=== PATIENT | female | born 1945 | race Caucasian/White ===

== ENCOUNTER 2016-11-02 17:21 | Inpatient (IN) ==
[2016-11-02] MEDS ORDERED: cefTRIAXone 1,000 MG in SODIUM CHLORIDE 0.9% 100 ML IV STA (18:41)
[2016-11-02] MEDS ORDERED: AZITHROMYCIN INJ 500 MG in SODIUM CHLORIDE 0.9% 250 ML IV STA (18:41)
[2016-11-02] MEDS ORDERED: methylPREDNISolone SOD SUC 125 MG/2 ML VIAL IV STA (18:41)
[2016-11-02] MEDS ORDERED: ONDANSETRON 4 MG/2 ML VIAL IM STA (18:41)
[2016-11-02] MEDS ORDERED: MORPHINE 2 MG/1 ML SYRINGE IV STA (18:41)
[2016-11-02] MEDS ORDERED: methylPREDNISolone SOD SUC 125 MG/2 ML VIAL ONE (18:48)
[2016-11-02] MEDS ORDERED: MORPHINE 2 MG/1 ML SYRINGE ONE (18:48)
[2016-11-02] MEDS ORDERED: ONDANSETRON 4 MG/2 ML VIAL ONE (18:48)
[2016-11-02 18:50] LABS: Basophils % 0.1 % (0.0-0.8); Eosinophils % 0.3 % (0.00-10.9); Hematocrit 41.6 VOL% (35.7-47.0); Hemoglobin 14.1 GM/DL (12.0-16.0); Immature Granulocytes % 0.2 %; Immature Granulocytes Absolute 0.02 #; Lymphocytes % 22.7 % (21.3-54.2); Mean Corpuscular HGB Conc 33.9 GM/DL (32-36); Mean Corpuscular Hemoglobin 31 PG (27-34); Mean Corpuscular Volume 92.4 FL (87-102); Monocytes # 0.8 10*3/uL (0.11-0.8); Neutrophils # 5.9 10*3/uL (1.4-7.4); Neutrophils % 67.7 % (38.7-73.9); Platelet Count 162 10*3/uL (130-400); White Blood Count 8.7 10*3/uL (4.5-13.71)
[2016-11-02] MEDS ORDERED: ONDANSETRON 4 MG/2 ML VIAL IV STA (18:56)
[2016-11-02 18:58] LABS: D-Dimer <= 0.5 MG/L FEU; PT Patient Result 10.8 SECS
[2016-11-02] MEDS ORDERED: ALBUTEROL 2.5 MG/3 ML NEB RESP TX SCH (19:00)
[2016-11-02] MEDS ORDERED: cefTRIAXone 1,000 MG VIAL ONE (19:02)
[2016-11-02] MEDS ORDERED: SODIUM CHLORIDE 0.9% 100 ML IV ONE (19:02)
[2016-11-02 19:04] LABS: Alanine Aminotransferase 10 U/L (13-56); Albumin 2.8 G/DL (3.4-5.0); Alkaline Phosphatase 79 U/L (45-117); Aspartate Amino Transferase 13 U/L (0-37); Blood Urea Nitrogen 11 MG/DL (7-18); Calcium 8.4 MG/DL (8.5-10.1); Glucose 93 MG/DL (74-106); Magnesium 1.3 MG/DL (1.8-2.4); Osmolality,Calculated 271.8 MOS/KG (273-304); Potassium 3.5 MMOL/L (3.5-5.1); Sodium 137 MMOL/L (136-145); Total Protein 6.8 G/DL (6.4-8.3); Troponin I Only < 0.015 NG/ML (0.00-0.045)
--- NOTE | 2016-11-02 19:07 | XRay Report ---
XR chest 1V portable Indication: SOB Comparison: Chest x-ray dated June 03, 2012 Technique: Single frontal view of the chest Findings: Continued mild cardiomegaly. Chronic/granulomatous change of the lungs without focal consolidation, pleural effusion, or pneumothorax. Osseous and surrounding soft tissue structures appear grossly unchanged. IMPRESSION: Stable chest x-ray. Continued cardiomegaly without santhosh pulmonary edema. PROCEDURE INTERPRETED AT [facility] DEPARTMENT OF RADIOLOGY Final Report Signed by: Dr Bon Dexter
--- NOTE | 2016-11-02 19:26 | EKG Report ---
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
[2016-11-02] MEDS ORDERED: AZITHROMYCIN 500 MG VIAL IV ONE (19:36)
[2016-11-02 19:47] LABS: ABG Base Excess 3.5 MMOL/L (-2.5-2.5); ABG HCO3 28.9 MMOL/L (20-26); ABG Oxygen Saturation 94.4 % (95-100); ABG PCO2 46.5 MM HG (35-48); ABG PH 7.412 (7.35-7.45); ABG PO2 76.6 MM HG (80-95); ABG TCO2 30.4 MMOL/L (23-27)
[2016-11-02] MEDS ORDERED: MAGNESIUM SULF RIDER 2 GM in PREMIX 1 EACH IV STA (19:52)
--- NOTE | 2016-11-02 20:04 | Emergency Department Note ---
Denzel Dexter Brittany, am scribing for, and in the presence of, Greg Gutierrez MD 18:43. Brenda Dexter Charles R, MD, personally performed the services described in this documentation, ascribed by Lurdes Mahoney in my presence, and it is both accurate and complete . Arrival - Arrival Chief Complaint: Upper Respiratory Stated Complaint: FLU/PNEUMONIA-DEHYDRATION ED Nursing Triage Note: Pt c/o cough, fever, weakness, nausea, and diarrhea since last . Saw Dr Avery on with Flu/pneumonia. Put onto Levaquin/Tamiflu Mode of Arrival: Wheelchair Limitations: No Limitations Source: Patient, Family, RN Notes Reviewed Time Seen by Provider: 11/02/16 18:32 - History of Present Illness HPI Narrative: Patient is a 71 y/o white female presenting to the ED with c/o cough, loss of appetite, and weakness with an onset of a week. Patient was seen by Dr. Avery on and was diagnosed with Flu/Pneumonia and was placed on Levaquin 500 and Tamiflu. Patient states that she still has not had much of an appetite and has not drank much liquids. She states that she does not have much strength either, has been somewhat sedentary since onset of symptoms. Family states, "I think she may have let herself get down and may need to have some fluids to jumpstart her." She notes that when patient got into room her oxygen saturation was around 92 before oxygen 2 liters via nasal cannula was placed. Patient does not use at home oxygen. Family notes that patient is a current everyday smoker. No other complaint/pain in the ED. Allergies/Adverse Reactions: Allergies Allergy/AdvReac Type Severity Reaction Status Date / Time No Known Allergies Allergy Verified 11/02/16 17:31 Home Medications: Home Medications Medication Instructions Recorded Confirmed Type Aspirin [Ecotrin] 81 mg PO DAILY 11/02/16 11/02/16 History Atorvastatin [Lipitor] 10 mg PO DAILY 11/02/16 11/02/16 History Benazepril HCl [Lotensin] 20 mg PO DAILY 11/02/16 11/02/16 History Duloxetine HCl [Duloxetine] 60 mg PO DAILY 11/02/16 11/02/16 History Levofloxacin Tab [Levaquin Tab] 500 mg PO DAILY 11/02/16 11/02/16 History amLODIPine [Norvasc] 10 mg PO DAILY 11/02/16 11/02/16 History carBAMazepine TAB [TEGretol TAB] 400 mg PO BID 11/02/16 11/02/16 History metFORMIN [Glucophage] 500 mg PO BID W/MEALS 11/02/16 11/02/16 History Review of System - Review of System 12 point system: reviewed and no additional remarkable complaints except as stated - Review of System Constitutional: Present: weakness Respiratory: Present: cough, respiratory distress Gastrointestinal: Present: other (loss of appetite) Medical,Surgical,& Family Hx - Medical History Cardio: History of: Hypertension Neurology: History of: TIA Endocrine: History of: Diabetes Mellitus (NIDDM) - Social History Smoking Status: Current every day smoker Exam Vital Signs: Vital Signs Temperature 97.8 F 11/02/16 17:23 Pulse Rate 87 11/02/16 19:26 Respiratory Rate 16 11/02/16 19:26 Blood Pressure 170/82 11/02/16 19:00 O2 Sat by Pulse Oximetry 96 11/02/16 19:26 - General General appearance: alert, in no apparent distress, other (weak appearing) - Head Head exam: Present: atraumatic, normocephalic - Eye Eye exam: Present: PERRL, EOMI - ENT ENT exam: Present: mucous membranes dry, TM's normal bilaterally. Absent: mucous membranes moist - Neck Neck exam: Present: full ROM, trachea midline. Absent: tenderness - Chest Chest inspection: Present: symmetric chest wall rise. Absent: tenderness - Respiratory Respiratory exam: Present: accessory muscle use, rhonchi, wheezes (both lung betancur). Absent: normal lung sounds bilaterally (coarse, decreased breath sounds) - Cardiovascular Cardiovascular exam: Present: normal rhythm, tachycardia, normal heart sounds. Absent: regular rate - Abdominal Exam Abdominal exam: Present: soft, normal bowel sounds. Absent: distention, tenderness - Extremities Exam Extremities exam: Present: full ROM. Absent: tenderness - Back Exam Back exam: Present: full ROM. Absent: tenderness - Neurological Exam Neurological exam: Present: alert, oriented X3, CN II-XII intact, normal gait, reflexes normal. Absent: motor sensory deficit - Psychiatric Psychiatric exam: Present: normal affect, normal mood - Skin Skin exam: Present: warm, dry, intact, normal color Course - Consultations Consultation #1: Dr. Zapien will admit the patient Time: 20:56 Results - Labs CBC & BMP: 11/02/16 18:09 11/02/16 18:09 Lab Results: I have reviewed the patients labs Labs: Laboratory Tests 11/02/16 11/02/16 11/02/16 18:09 18:09 18:09 WBC 8.7 RBC 4.50 Hgb 14.1 Hct 41.6 Plt Count 162 INR 1.0 PT Patient/Control Mix 10.8 D-Dimer, Quantitative <= 0.5 Sodium 137 Potassium 3.5 Chloride 101 Carbon Dioxide 29 BUN 11 Creatinine 0.50 L BUN/Creatinine Ratio 22.00 H Glucose 93 Calculated Osmolality 271.8 L Calcium 8.4 L Magnesium 1.3 L ALT 10 L Troponin I < 0.015 Albumin 2.8 L Globulin 4.0 H Albumin/Globulin Ratio 0.7 L Laboratory Tests 11/02/16 18:09 B-Natriuretic Peptide 207 H Laboratory Tests 11/02/16 19:43 ABG pH 7.412 ABG pCO2 46.5 ABG pO2 76.6 L ABG HCO3 28.9 H ABG Total CO2 30.4 H ABG O2 Saturation 94.4 L ABG Base Excess 3.5 H FiO2 28.00 - Diagnostic Findings Procedure: Chest x-ray: report reviewed by me (Stable chest x-ray. Continued cardiomegaly without santhosh pulmonary edema.) Disposition Clinical Impression: Upper respiratory infection, Bronchitis, COPD exacerbation, Hypomagnesemia, Acute dyspnea Case discussed with: patient, patient's family Disposition: Still a Patient Condition: Stable Time of Disposition: 20:57
[2016-11-02] MEDS ORDERED: MAGNESIUM SULF RIDER 50 ML IV ONE (20:10)
[2016-11-02] MEDS ORDERED: FUROSEMIDE 20 MG/2 ML VIAL IV STA (20:39)
[2016-11-02] MEDS ORDERED: FUROSEMIDE 20 MG/2 ML VIAL ONE (20:39)
--- NOTE | 2016-11-02 21:51 | Hospitalist History & Physical ---
Assessment and Plan (1) Bronchitis with influenza Status: Acute Assessment and plan: The patient's [facility] hospital with shortness of breath and hypoxemia consistent with acute bronchitis with influenza. The patient has completed a course of oral Tamiflu. She is at risk for gram-positive superinfection. The patient will be admitted to the hospital for IV antibiotics, inhaled beta agonist nebulized breathing therapy, and moderate dose steroids. We will observe the patient and continue treatment as required. The patient will continue her usual home medications. The patient will be hydrated. Current Visit: Yes (2) Upper respiratory infection Status: Acute Current Visit: Yes Qualifiers: URI type: acute laryngotracheitis Qualified Code(s): J04.2 - Acute laryngotracheitis (3) COPD exacerbation Status: Acute Current Visit: Yes (4) Hypomagnesemia Status: Acute Current Visit: Yes History of Present Illness Chief complaint: cough and shortness of breath History of present illness: Ms. Merida is a 71 year old female with history of tobacco smoking. The patient sees Dr. Evangelist Stern is now patient. The patient began having shortness of breath cough and fever about a week ago. Dr. Stern gave the patient a prescription for penicillin and Levaquin. The patient was compliant with these medications and took a 5 day course of Tamiflu. The patient has continued to suffer with cold symptoms and flu symptoms. The patient's symptoms are moderate, continuous, and begun to worsen. The patient's symptoms have been associated with fever, chills, reduced appetite. The patient is now admitted to the hospital for further treatment with IV antibiotic and hydration. Home Medications Medication Instructions Recorded Confirmed Type Aspirin [Ecotrin] 81 mg PO DAILY 11/02/16 11/02/16 History Atorvastatin [Lipitor] 10 mg PO DAILY 11/02/16 11/02/16 History Benazepril HCl [Lotensin] 20 mg PO DAILY 11/02/16 11/02/16 History Duloxetine HCl [Duloxetine] 60 mg PO DAILY 11/02/16 11/02/16 History Levofloxacin Tab [Levaquin Tab] 500 mg PO DAILY 11/02/16 11/02/16 History amLODIPine [Norvasc] 10 mg PO DAILY 11/02/16 11/02/16 History carBAMazepine TAB [TEGretol TAB] 400 mg PO BID 11/02/16 11/02/16 History metFORMIN [Glucophage] 500 mg PO BID W/MEALS 11/02/16 11/02/16 History Allergies Allergy/AdvReac Type Severity Reaction Status Date / Time No Known Allergies Allergy Verified 11/02/16 17:31 Medical,Surgical,& Family Hx - Medical History Cardio: History of: Hypertension Neurology: History of: Cerebrovascular Accident, TIA Endocrine: History of: Diabetes Mellitus (NIDDM) - Family History Family History: Reports;: Family Hypertension - Social History Smoking Status: Current every day smoker Have you smoked in the last 12 months: Yes Type of Drug Use: None Marital Status: Lives With:: Spouse Functional capacity: independent ambulation 12 point system: reviewed and no additional remarkable complaints except as stated Exam - Constitutional Vitals: Period Temp Pulse Resp BP Sys/Valdes Pulse Ox Last 24 Hr 97.8 F 78-89 16-20 138-170/80-104 92-96 Exam: Constitutional System: Mild to moderate distress. No tremulousness. Head: Normocephalic, atraumatic. Ears, Nose and Throat System: No evidence of Otitis or Mastoiditis. No epistaxis or discharge Eyes System: Pupils equal, round, and reactive. Extraocular muscles intact. Neck: Supple, without adenopathy, No jugular venous distention. No thyromegaly , neck mass, or prior surgery apparent. Respiratory System: Chest with moderate wheezing and with moderate upper airway congestion to auscultation. Cardiovascular System: Heart with regular rate and rhythm. No murmur. GI System: Abdomen soft, nontender. Normoactive bowel sounds present. Musculoskeletal System: limbs with trace pedal edema. Full distal pulses. Neurological System: No discernable sensory deficit. No aphasia Psychiatric System: Conversation is rational Results - Labs CBC & BMP: 11/02/16 18:09 11/02/16 18:09 Lab Results: I have reviewed the past 24 hour labs Labs: Magnesium equals 1.2 - EKG EKG shows: sinus rhythm (nonspecific ST-T wave changes) - Diagnostic Findings Procedure: Chest x-ray: image reviewed by me (no specific infiltrate. There is some peribronchial cuffing)
[2016-11-03] MEDS ORDERED: MAGNESIUM SULF RIDER 2 GM in PREMIX 1 EACH IV ONE (00:19)
[2016-11-03] MEDS ORDERED: ONDANSETRON 4 MG/2 ML VIAL IV PRN (00:19)
[2016-11-03] MEDS ORDERED: ACETAMINOPHEN 325 MG TABLET PO PRN (00:19)
[2016-11-03] MEDS: ALBUTEROL/IPRATROPIUM 3 ML NEB RESP TX SCH ×4 (01:19→19:06)
[2016-11-03] MEDS: SODIUM CHLORIDE 0.9% 1,000 ML IV SCH ×2 (01:51→14:00)
[2016-11-03] MEDS: ENOXAPARIN 40 MG/0.4 ML SYRINGE SUBCUT SCH (01:52)
[2016-11-03] MEDS: methylPREDNISolone SOD SUC 40 MG/1 ML VIAL IV SCH ×3 (01:52→16:22)
[2016-11-03 06:16] LABS: Basophils % 0.1 % (0.0-0.8); Hematocrit 39.5 VOL% (35.7-47.0); Immature Granulocytes % 0.6 %; Immature Granulocytes Absolute 0.04 #; Lymphocytes # 0.8 10*3/uL (1.4-4.0); Lymphocytes % 10.7 % (21.3-54.2); Mean Corpuscular HGB Conc 32.9 GM/DL (32-36); Mean Corpuscular Hemoglobin 31 PG (27-34); Mean Corpuscular Volume 93.4 FL (87-102); Monocytes # 0.3 10*3/uL (0.11-0.8); Neutrophils % 84.6 % (38.7-73.9); Platelet Count 173 10*3/uL (130-400); Red Blood Count 4.23 10*6/uL (3.8-5.5); Red Cell Distribution Width 13.2 % (9.3-17.3); White Blood Count 7.1 10*3/uL (4.5-13.71)
[2016-11-03 06:54] LABS: Blood Urea Nitrogen 12 MG/DL (7-18); Calcium 8.1 MG/DL (8.5-10.1); Glucose 143 MG/DL (74-106); Magnesium 2.7 MG/DL (1.8-2.4); Osmolality,Calculated 280.4 MOS/KG (273-304); Potassium 3.5 MMOL/L (3.5-5.1); Sodium 140 MMOL/L (136-145); Troponin I Only < 0.015 NG/ML (0.00-0.045)
--- NOTE | 2016-11-03 08:22 | XRay Report ---
XR chest 2V Date: 11/03/2016 4:00 AM History: Shortness of breath Comparison: 11/02/2016 Technique: PA and lateral chest Findings: Stable cardiomegaly with calcification in the aortic knob. Persistent diffuse parenchymal findings in the lungs with stable mediastinum and osseous structures. Impression: COPD with evidence of old healed granulomatous disease and chronic scarring. Minimal atelectasis at the lung bases. PROCEDURE INTERPRETED AT [facility] DEPARTMENT OF RADIOLOGY Final Report Signed by: Dr. Whitney Irving
--- NOTE | 2016-11-03 09:07 | EKG Report ---
Stationary ECG Study [facility] Test Date: 11/03/2016 9:06:31 AM Pat Name: JAMEY SNYDER Department: Room: 519 Gender: F Kiln Pusher: SONJA : 1945 Requested by: Malcolm Zapien Order Number: [id number] Reading MD: LUCI HERNANDEZ Intervals [place] Rate: 85 P: 81 [place]: 218 QRS: 57 QRSD: 96 T: 76 QT: 367 QTc: 410 Interpretive Statements SINUS RHYTHM WITH PROLONGED [place] INTERVAL SEPTAL MYOCARDIAL INFARCTION, OF INDETERMINATE AGE Electronically Signed On 11-03-16 11:50:52 RECREATION TEACHER by LUCI HERNANDEZ [id number]
[2016-11-03] MEDS: carBAMazepine 200 MG TABLET PO SCH ×2 (09:11→20:45)
[2016-11-03] MEDS: ASPIRIN EC 81 MG TABLET PO SCH (09:12)
[2016-11-03] MEDS: amLODIPine 10 MG TABLET PO SCH (09:12)
[2016-11-03] MEDS: ATORVASTATIN 10 MG TABLET PO SCH (09:12)
[2016-11-03] MEDS: PANTOPRAZOLE 40 MG TABLET PO SCH (09:12)
[2016-11-03] MEDS: DULoxetine 30 MG CAPSULE PO SCH (09:13)
[2016-11-03] MEDS: metFORMIN 500 MG TABLET PO SCH ×2 (09:14→16:22)
[2016-11-03] MEDS: AZITHROMYCIN 250 MG TABLET PO SCH (09:14)
[2016-11-03] MEDS: BENAZEPRIL 10 MG TABLET PO SCH (09:14)
[2016-11-03] MEDS: cefTRIAXone 1,000 MG in SODIUM CHLORIDE 0.9% 100 ML IV SCH (09:15)
--- NOTE | 2016-11-03 12:28 | Hospitalist Progress Note ---
Assessment and Plan (1) Bronchitis with influenza Status: Acute Assessment and plan: The patient is admitted to hospital with shortness of breath and hypoxemia consistent with acute bronchitis with influenza. The patient has completed a course of oral Tamiflu. She is at risk for gram-positive superinfection. The patient will be admitted to the hospital for IV antibiotics, inhaled beta agonist nebulized breathing therapy, and moderate dose steroids. We will observe the patient and continue treatment as required. The patient will continue her usual home medications. The patient will be hydrated. The patient is improving and expected fashion and I anticipate she will be ready for discharge home tomorrow. Follow-up chest x-ray today has not revealed development of any pneumonia but does show some atelectasis in the bases consistent with her wheezing. Current Visit: Yes (2) Upper respiratory infection Status: Acute Current Visit: Yes Qualifiers: URI type: acute laryngotracheitis Qualified Code(s): J04.2 - Acute laryngotracheitis (3) COPD exacerbation Status: Acute Current Visit: Yes (4) Hypomagnesemia Status: Acute Current Visit: Yes Hospitalist: Subjective Interval history: The patient has less cough today. She has mild wheezing and she has air- trapping. The patient is showing improvement of appetite. She has some increased amount of anxiety today Exam - Constitutional Vitals: Period Temp Pulse Resp BP Sys/Valdes Pulse Ox Last 24 Hr 97.2 F-98.3 F 84-97 17-22 98-141/42-74 91-99 Exam: Constitutional System: Mild distress. No tremulousness. Head: Normocephalic, atraumatic. Ears, Nose and Throat System: No evidence of Otitis or Mastoiditis. No epistaxis or discharge Eyes System: Pupils equal, round, and reactive. Extraocular muscles intact. Neck: Supple, without adenopathy, No jugular venous distention. No thyromegaly , neck mass, or prior surgery apparent. Respiratory System: Chest with minimal wheezing and with moderate air trapping to auscultation. Cardiovascular System: Heart with regular rate and rhythm. No murmur. GI System: Abdomen soft, nontender. Normoactive bowel sounds present. Musculoskeletal System: limbs with trace pedal edema. Full distal pulses. Neurological System: No discernable sensory deficit. No aphasia Psychiatric System: Conversation is rational Results - Labs CBC & BMP: 11/03/16 05:32 11/03/16 05:32 Lab Results: I have reviewed the past 24 hour labs
[2016-11-04] MEDS: methylPREDNISolone SOD SUC 40 MG/1 ML VIAL IV SCH ×3 (00:58→16:53)
[2016-11-04] MEDS: ENOXAPARIN 40 MG/0.4 ML SYRINGE SUBCUT SCH (01:03)
[2016-11-04] MEDS: SODIUM CHLORIDE 0.9% 1,000 ML IV SCH (01:04)
[2016-11-04] MEDS: ALBUTEROL/IPRATROPIUM 3 ML NEB RESP TX SCH ×4 (07:04→19:51)
[2016-11-04 08:31] LABS: Allen Test Positive
[2016-11-04 08:33] LABS: ABG Base Excess 3.6 MMOL/L (-2.5-2.5); ABG HCO3 28.8 MMOL/L (20-26); ABG Oxygen Saturation 89.8 % (95-100); ABG PCO2 46.2 MM HG (35-48); ABG PH 7.413 (7.35-7.45); ABG PO2 59.9 MM HG (80-95); ABG TCO2 30.2 MMOL/L (23-27)
[2016-11-04] MEDS: amLODIPine 10 MG TABLET PO SCH (09:24)
[2016-11-04] MEDS: DULoxetine 30 MG CAPSULE PO SCH (09:24)
--- NOTE | 2016-11-04 09:24 | XRay Report ---
History: Shortness of breath Date: 11/04/2016 at 9:02 AM Study: Chest x-ray portable Comparison exam: Chest x-ray November 03, 2016 There is cardiomegaly. The pulmonary vasculature is slightly prominent and ill-defined. There is no mediastinal mass. There is mild to moderate aortic arch calcification. There is mild right-sided pleural effusion. There is patchy and hazy edema in the mid to lower lungs bilaterally. The osseous structures are unchanged. There is mild to moderate thoracic spondylosis. Impression: Cardiomegaly and developing CHF with bibasilar pulmonary edema and mild right pleural effusion PROCEDURE INTERPRETED AT [facility] DEPARTMENT OF RADIOLOGY Final Report Signed by: Dr. Mervat Monterroso
[2016-11-04] MEDS: ASPIRIN EC 81 MG TABLET PO SCH (09:25)
[2016-11-04] MEDS: ATORVASTATIN 10 MG TABLET PO SCH (09:25)
[2016-11-04] MEDS: BENAZEPRIL 10 MG TABLET PO SCH (09:25)
[2016-11-04] MEDS: metFORMIN 500 MG TABLET PO SCH ×3 (09:26→16:54)
[2016-11-04] MEDS: AZITHROMYCIN 250 MG TABLET PO SCH (09:26)
[2016-11-04] MEDS: PANTOPRAZOLE 40 MG TABLET PO SCH (09:26)
[2016-11-04] MEDS: cefTRIAXone 1,000 MG in SODIUM CHLORIDE 0.9% 100 ML IV SCH (09:28)
[2016-11-04] MEDS: carBAMazepine 200 MG TABLET PO SCH ×2 (10:03→20:57)
[2016-11-04] MEDS ORDERED: FUROSEMIDE 40 MG/4 ML VIAL IV ONE ×2 (11:34→18:00)
--- NOTE | 2016-11-04 12:45 | Hospitalist Progress Note ---
Assessment and Plan (1) Bronchitis with influenza Status: Acute Assessment and plan: The patient is admitted to hospital with shortness of breath and hypoxemia consistent with acute bronchitis with influenza. The patient has completed a course of oral Tamiflu. The patient is improving after x-ray showed pulmonary edema this morning and she was given Lasix. I anticipate discharge home tomorrow to continue recovery of her influenza at home. Current Visit: Yes (2) Upper respiratory infection Status: Acute Current Visit: Yes Qualifiers: URI type: acute laryngotracheitis Qualified Code(s): J04.2 - Acute laryngotracheitis (3) COPD exacerbation Status: Acute Current Visit: Yes (4) Hypomagnesemia Status: Acute Current Visit: Yes Hospitalist: Subjective Interval history: The patient was admitted to the hospital with the effects of influenza. The patient was treated for COPD exacerbation and given IV fluid. The patient became acutely short of breath this morning consistent with pulmonary edema and has begun to improve after IV Lasix. Exam - Constitutional Vitals: Period Temp Pulse Resp BP Sys/Valdes Pulse Ox Last 24 Hr 97.3 F-98.4 F 83-105 17-20 126-164/73-81 91-99 Exam: Constitutional System: Mild distress. No tremulousness. Head: Normocephalic, atraumatic. Ears, Nose and Throat System: No evidence of Otitis or Mastoiditis. No epistaxis or discharge Eyes System: Pupils equal, round, and reactive. Extraocular muscles intact. Neck: Supple, without adenopathy, No jugular venous distention. No thyromegaly , neck mass, or prior surgery apparent. Respiratory System: Chest with minimal rales in bases to auscultation. There is less lung congestion today Cardiovascular System: Heart with regular rate and rhythm. No murmur. GI System: Abdomen soft, nontender. Normoactive bowel sounds present. Musculoskeletal System: limbs with trace pedal edema. Full distal pulses. Neurological System: No discernable sensory deficit. No aphasia Psychiatric System: Conversation is rational Results - Labs CBC & BMP: 11/03/16 05:32 11/03/16 05:32 Lab Results: I have reviewed the past 24 hour labs
[2016-11-04] MEDS: POTASSIUM CHLORIDE 20 MEQ TABLET PO SCH ×3 (13:52→20:57)
[2016-11-05] MEDS: ENOXAPARIN 40 MG/0.4 ML SYRINGE SUBCUT SCH (01:29)
[2016-11-05] MEDS: methylPREDNISolone SOD SUC 40 MG/1 ML VIAL IV SCH (01:29)
[2016-11-05] MEDS: ALBUTEROL/IPRATROPIUM 3 ML NEB RESP TX SCH ×2 (07:05)
[2016-11-05] MEDS: PANTOPRAZOLE 40 MG TABLET PO SCH (09:13)
[2016-11-05] MEDS: DULoxetine 30 MG CAPSULE PO SCH (09:13)
[2016-11-05] MEDS: carBAMazepine 200 MG TABLET PO SCH (09:13)
[2016-11-05] MEDS: cefTRIAXone 1,000 MG in SODIUM CHLORIDE 0.9% 100 ML IV SCH (09:14)
[2016-11-05] MEDS: ATORVASTATIN 10 MG TABLET PO SCH (09:14)
[2016-11-05] MEDS: metFORMIN 500 MG TABLET PO SCH (09:14)
[2016-11-05] MEDS: ASPIRIN EC 81 MG TABLET PO SCH (09:14)
[2016-11-05] MEDS: amLODIPine 10 MG TABLET PO SCH (09:14)
[2016-11-05] MEDS: BENAZEPRIL 10 MG TABLET PO SCH (09:14)
[2016-11-05] MEDS: AZITHROMYCIN 250 MG TABLET PO SCH (09:15)
[2016-11-05 09:47] LABS: Calcium 8.3 MG/DL (8.5-10.1); Magnesium 1.6 MG/DL (1.8-2.4); Potassium 4.2 MMOL/L (3.5-5.1)
--- NOTE | 2016-11-05 11:24 | Discharge Summary ---
Hospital Course - Hospital Course Hospital Course: The patient had an episode of influenza a and was treated at home with oral Tamiflu and oral antibiotics. The patient had some shortness of breath with respiratory failure at home with the end of this week. She was admitted to the hospital and treated with IV antibiotic, inhaled beta agonist nebulized breathing therapy, and moderate dose intravenous steroids. The patient shortness of breath improved. Because of hydration given during the hospital stay the patient had an episode of pulmonary edema which was treated with diuretic and resolved. The patient remains with some upper airway congestion but with less wheezing. She appears to be stable for discharge home has no evidence of influenza complication. On the date of discharge, the chest has mild to moderate air trapping, mild upper airway congestion, no wheezing. The heart has regular rate and rhythm Abdomen soft. The patient was told to return to the emergency room if she worsens in the next few days. - Time spent with patient Time with patient DS: Greater than 30 minutes Diagnosis - Discharge Diagnosis (1) Bronchitis with influenza Status: Resolved (2) Upper respiratory infection Status: Resolved (3) COPD exacerbation Status: Resolved (4) Hypomagnesemia Status: Resolved Discharge Plan - Discharge Data Disposition: Disch To Home/Self Care Condition at Discharge: Stable Discharge Diet: advance to your usual diet Activity: resume usual activities as tolerated - Discharge Medications New Cefuroxime Tab [Ceftin] 250 mg PO BID #10 tablet predniSONE TAB [PredniSONE] 10 mg PO BID #14 tablet Continue carBAMazepine TAB [TEGretol TAB] 400 mg PO BID amLODIPine [Norvasc] 10 mg PO DAILY Benazepril HCl [Lotensin] 20 mg PO DAILY Atorvastatin [Lipitor] 10 mg PO DAILY metFORMIN [Glucophage] 500 mg PO BID W/MEALS Levofloxacin Tab [Levaquin Tab] 500 mg PO DAILY Aspirin [Ecotrin] 81 mg PO DAILY Duloxetine HCl [Duloxetine] 60 mg PO DAILY - Follow Up or Referral - Forms/Instructions Exam - Constitutional Vitals: Period Temp Pulse Resp BP Sys/Valdes Pulse Ox Last 24 Hr 96.4 F-99.6 F 77-105 16-20 132-168/67-90 90-98 Discharge Results Labs on day of discharge: Labs from last 24 hours 11/05/16 11/05/16 09:00 09:00 Sodium 143 Potassium 4.2 Chloride 105 Carbon Dioxide 31 Anion Gap 11.2 BUN 12 Creatinine 0.50 L GFR Calculation 102 BUN/Creatinine Ratio 24.00 H Glucose 151 H Calculated Osmolality 287.0 Calcium 8.3 L Magnesium 1.6 L B-Natriuretic Peptide 549 H DS: Provider Date of admission: 11/02/16 21:40 Primary care physician: . No PCP Attending physician on admission: Malcolm Zapien MD Discharging clinician: Malcolm Zapien MD
[2016-11-05 11:41] VITALS: BP 142/77
== END 2016-11-05 12:30 | disposition home or self-care (01) | DRG 192 ==
LOC: N.ED 17:21 → N.EDINP 21:40 → N.5E 11-03 00:26
PROVIDERS: ADMIT Internal Medicine; ATTEND Internal Medicine

== ENCOUNTER 2017-06-30 19:50 | Inpatient (IN) ==
[2017-06-30] MEDS ORDERED: SODIUM CHLORIDE 0.9% 1,000 ML IV STA (20:31)
[2017-06-30] MEDS ORDERED: cefTRIAXone 1,000 MG in SODIUM CHLORIDE 0.9% 100 ML IV STA (20:31)
[2017-06-30] MEDS ORDERED: ONDANSETRON 4 MG/2 ML VIAL IV STA (20:31)
[2017-06-30 20:52] LABS: Basophils # 0.1 10*3/uL (0.0-0.2); Basophils % 0.2 % (0.0-0.8); Hematocrit 40.1 VOL% (35.7-47.0); Hemoglobin 13.5 GM/DL (12.0-16.0); Immature Granulocytes % 1.1 %; Immature Granulocytes Absolute 0.26 #; Lymphocytes % 4.2 % (21.3-54.2); Mean Corpuscular HGB Conc 33.7 GM/DL (32-36); Mean Corpuscular Hemoglobin 32 PG (27-34); Mean Corpuscular Volume 94.6 FL (87-102); Monocytes # 1.3 10*3/uL (0.11-0.8); Monocytes % 5.6 % (1.7-12.7); Neutrophils # 20.6 10*3/uL (1.4-7.4); Neutrophils % 88.9 % (38.7-73.9); Platelet Count 183 T/CUMM (130-400); Red Blood Count 4.24 MC/CUMM (3.8-5.5); Red Cell Distribution Width 14.7 % (9.3-17.3); White Blood Count 23.2 T/CUMM (4-12)
[2017-06-30] MEDS ORDERED: SODIUM CHLORIDE 0.9% 100 ML IV ONE (20:53)
[2017-06-30] MEDS ORDERED: ONDANSETRON 4 MG/2 ML VIAL ONE (20:53)
[2017-06-30] MEDS ORDERED: cefTRIAXone 1,000 MG VIAL ONE (20:53)
[2017-06-30 21:02] LABS: Apearance,Urine Slightly Hazy (Clear); Bacteria,Urine Moderate /HPF (Few); Bilirubin,Urine Negative (Negative); Blood, Urine Small mg/dL (Negative); Glucose,Urine (UA) Negative (Negative); Ketones,Urine Negative (Negative); Nitrite,Urine Negative (Negative); Protein,Urine 100 MG/DL; RBC,Urine 2 /HPF (0-4); Squamous Epithelial Cell,Urine Occasional /HPF (0-10); Urine Color Yellow (Yellow); Urine Specific Gravity 1.008 (1.001-1.035); Urine Urobilinogen < 2.0 EU/DL (0.2-1.0); WBC,Urine 89 /HPF (0-6)
[2017-06-30 21:17] LABS: Alanine Aminotransferase 15 U/L (13-56); Albumin 2.6 G/DL (3.4-5.0); Alkaline Phosphatase 100 U/L (45-117); Aspartate Amino Transferase 15 U/L (0-37); Blood Urea Nitrogen 18 MG/DL (7-18); Calcium 8.4 MG/DL (8.5-10.1); Total Protein 6.9 G/DL (6.4-8.3)
[2017-06-30 21:18] LABS: Amylase 35 U/L (25-115); Glucose 122 MG/DL (74-106); Lactic Acid 1.7 MMOL/L (0.4-2.0); Magnesium 1.2 MG/DL (1.8-2.4); Osmolality,Calculated 270.2 MOS/KG (273-304); Potassium 3.5 MMOL/L (3.5-5.1); Sodium 134 MMOL/L (136-145); Troponin I Only < 0.015 NG/ML (0.00-0.045)
[2017-06-30] MEDS ORDERED: MAGNESIUM SULF RIDER 2 GM in PREMIX 1 EACH IV STA ×2 (21:26→22:36)
[2017-06-30 21:27] LABS: Band Neutrophils 3 % (0-10); Eosinophils 1 % (0-10); Lymphocytes 8 % (20-55); Platelet Estimate Adequate; Polychromasia Few; Segmented Neutrophils 85 % (50-85); Total Cells Counted 100
[2017-06-30] MEDS ORDERED: MAGNESIUM SULF RIDER 50 ML IV ONE ×2 (21:28→23:12)
--- NOTE | 2017-06-30 21:32 | Emergency Department Note ---
Amada Dexter Gwan, am scribing for, and in the presence of, Greg Gutierrez MD 20 :37. Brenda Dexter Charles R, MD, personally performed the services described in this documentation, ascribed by Carlos Ybarra in my presence, and it is both accurate and complete . Arrival - Arrival Chief Complaint: Urogenital - Female Stated Complaint: possible UTI/side pain/fever/chills ED Nursing Triage Note: C/O Dysuria/fever/lower back pain. Onset Tuesday after completing second round of antibiotics for UTI. Pt denies calling PCP about recurring symptoms. Mode of Arrival: Wheelchair Limitations: No Limitations Source: Patient, Old Records Reviewed, RN Notes Reviewed Time Seen by Provider: 06/30/17 20:30 - History of Present Illness HPI Narrative: Patient is a 72 y/o patient who presents to the ED with a c/o dysuria, fever and lower abd pain with an onset 5 days ago. Last check at home, patients temperature was 101.0. During triage, patients temperature was 101.6. Patient stated that she reported to her PCP on 05/30/2017 and was dx with UTI. She continued to note that she was given a 10 day supply of antibiotics to which she completed. She then said that after she completed her antibiotics, her sxs returned worse than they were originally. She denies having any POWER or coughing. During exam, patient was awake and alert. No other problems/complaints reported in ED. Onset (ago): day(s) Consistency: constant Severity: moderate Date of Last Menstrual Period: PM Allergies/Adverse Reactions: Allergies Allergy/AdvReac Type Severity Reaction Status Date / Time Iodinated Contrast Media - Allergy ITCHING Verified 11/03/16 00:15 Oral and [Iodinated Contrast Media - IV Dye] Home Medications: Home Medications Medication Instructions Recorded Confirmed Type Aspirin [Ecotrin] 81 mg PO DAILY 11/02/16 11/03/16 History Atorvastatin [Lipitor] 10 mg PO DAILY 11/02/16 11/03/16 History Benazepril HCl [Lotensin] 20 mg PO DAILY 11/02/16 11/03/16 History Duloxetine HCl [Duloxetine] 60 mg PO DAILY 11/02/16 11/03/16 History amLODIPine [Norvasc] 10 mg PO DAILY 11/02/16 11/03/16 History carBAMazepine TAB [TEGretol TAB] 400 mg PO BID 11/02/16 11/03/16 History metFORMIN [Glucophage] 500 mg PO BID W/MEALS 11/02/16 11/03/16 History Medical,Surgical,& Family Hx - Medical History Cardio: History of: Hypertension Psychological: History of: Depression Neurology: History of: TIA No history of: Cerebrovascular Accident Endocrine: History of: Diabetes Mellitus (NIDDM) Musculoskeletal: History of: Musculoskeletal Problems (osteoarthritis) - Surgical History Reproductive Surgeries: Surgical HX of;: Breast Surgery (breast reduction), Tubal Ligation - Family History Family History: Reports;: Family Cancer (mother - breast [place]), Family Heart Disease (father - [place]), Family Hypertension - Social History Smoking Status: Current every day smoker Frequency of Alcohol Use: None Type of Drug Use: None Exam Vital Signs: Vital Signs Temperature 101.6 F H 06/30/17 20:15 Pulse Rate 113 H 06/30/17 20:15 Respiratory Rate 16 06/30/17 20:15 Blood Pressure 115/56 06/30/17 20:15 O2 Sat by Pulse Oximetry 95 06/30/17 19:54 - General General appearance: alert, in no apparent distress - Head Head exam: Present: atraumatic, normocephalic - Eye Eye exam: Present: normal appearance, PERRL, EOMI - ENT ENT exam: Present: normal oropharynx, mucous membranes moist, TM's normal bilaterally, normal external ear exam - Neck Neck exam: Present: full ROM, trachea midline. Absent: tenderness - Chest Chest inspection: Present: symmetric chest wall rise. Absent: tenderness - Respiratory Respiratory exam: Present: normal lung sounds bilaterally. Absent: respiratory distress - Cardiovascular Cardiovascular exam: Present: normal rhythm, tachycardia - Abdominal Exam Abdominal exam: Present: tenderness (supra pubic tenderness) - Extremities Exam Extremities exam: Present: full ROM. Absent: tenderness - Back Exam Back exam: Present: full ROM. Absent: tenderness - Neurological Exam Neurological exam: Present: alert, oriented X3, CN II-XII intact. Absent: motor sensory deficit - Psychiatric Psychiatric exam: Present: normal affect, normal mood - Skin Skin exam: Present: other (denice cheeks bilaterally) Course - Consultations Consultation #1: Hospitalist will admit patient Time: 21:32 Results - Labs CBC & BMP: 06/30/17 20:42 06/30/17 20:42 Lab Results: I have reviewed the patients labs Labs: Laboratory Tests 06/30/17 06/30/17 06/30/17 20:42 20:42 20:45 WBC 23.2 H RBC 4.24 Hgb 13.5 Hct 40.1 Plt Count 183 Neut % (Auto) 88.9 H Lymph % (Auto) 4.2 L Neut # (Auto) 20.6 H Lymph # (Auto) 1.0 L Hardeman # (Auto) 1.3 H Sodium 134 L Potassium 3.5 Chloride 100 Carbon Dioxide 24 Creatinine 1.20 H Glucose 122 H Calculated Osmolality 270.2 L Calcium 8.4 L Magnesium 1.2 L Albumin 2.6 L Globulin 4.3 H Albumin/Globulin Ratio 0.6 L Lipase 66.0 L Urine pH 6.0 Ur Specific Nichols 1.008 Urine Protein 100 Urine Blood Small Urine Urobilinogen < 2.0 H Urine Leukocytes Large H Urine RBC 2 Urine WBC 89 Urine WBC Clumps Moderate Ur Squamous Epith Cells Occasional Urine Bacteria Moderate Laboratory Tests 06/30/17 20:42 Total Counted 100 Segmented Neutrophils 85 Band Neutrophils 3 Lymphocytes 8 L Monocytes 3 Eosinophils 1 Platelet Estimate Adequate Polychromasia Few - Diagnostic Findings Procedure: CT Abdomen and Pelvis: report reviewed by me (1. Nonspecific asymmetric increased right perinephric stranding in the retroperitoneal fat. No definite hydronephrosis although at least one possible nonobstructing 3 mm stone is suggested within the right renal collecting system. Findings may represent underlying infectious/inflammatory [place] ges within the right kidney. Correlate with urinalysis. The findings may also be related to recent passage of a stone which is no longer visualized. Scattered probable vascular calcifications are also noted in both kidneys. 2. Colonic diverticulosis with no CT evidence of acute diverticulitis. 3. Probable 3 cm left ) Critical Care Time Critical Care Time: Yes Total Critical Care Time: 60 Disposition Clinical Impression: Fever, Leukocytosis, Urosepsis, Hypomagnesemia, Cystitis, Urinary tract infection Case discussed with: patient, patient's family Disposition: Still a Patient Condition: Stable Time of Disposition: 21:31
--- NOTE | 2017-06-30 21:32 | CT Report ---
CT abdomen pelvis wo con Indication: Fever, flank pain, pelvic pain Comparison: None available. Technique: CT of the abdomen and pelvis was performed without administration of intravenous contrast. Coronal and sagittal reformatted images were additionally created and submitted for review. The total DLP is 527 mGy*cm. Dose reduction: This CT exam was performed using one or more of the following dose reduction techniques: Automated exposure control, automated adjustment of the mA and/or KV according to patient size, or use of iterative reconstruction technique. Findings: Very minimal posterior basilar dependent atelectatic changes are noted bilaterally. Lung bases are otherwise clear. There is no pleural or pericardial effusion. Calcified granulomas noted within the left lung base. ABDOMEN: Liver/Gallbladder: Normal unenhanced liver appears grossly unremarkable. No gallstones or biliary ductal dilatation. Spleen: No acute findings. Pancreas: No acute findings. Adrenals: 3.7 cm left adrenal nodule with CT attenuation measurements similar to that of water is most compatible with an adenoma. Evaluation is somewhat limited given lack of intravenous contrast. Right adrenal gland appears unremarkable. Kidneys: Both kidneys demonstrate mild perinephric stranding, but the amount of retroperitoneal fat stranding is much more prominent on the right as compared to the left. The right kidney demonstrates at least one nonobstructing 3 mm stone near the upper pole. A punctate 1 mm stone is also suggested at the lower pole. Vascular calcifications are noted. Punctate calcific densities within the left kidney may also represent vascular calcifications. There is no significant hydroureter. No definite additional right ureteral stones are visualized although evaluation is limited given lack of intravenous contrast. Bowel/mesentery: Small bowel is nondilated. There is no free fluid/air within the abdomen. Several scattered colonic diverticula are noted. No definite CT evidence of acute diverticulitis. There is no mesenteric adenopathy. Retroperitoneum: No evidence of aortic aneurysm. Circumferential atherosclerotic plaque is noted. No retroperitoneal adenopathy is identified. PELVIS: No significant free fluid in the pelvis. Bladder is nondistended and otherwise poorly evaluated. Uterus and ovaries appear grossly within normal limits for CT technique. No adenopathy. BONES: No acute or suspicious osseous abnormalities are identified. Multilevel degenerative changes noted within the lumbar spine with disc space loss and endplate sclerosis as well as facet arthropathy primarily at L2-3 through L5-S1. There is also grade 1 anterolisthesis of L4 relative to L5. Moderately severe facet arthropathy is also noted at L4-5 and L5-S1. IMPRESSION: 1. Nonspecific asymmetric increased right perinephric stranding in the retroperitoneal fat. No definite hydronephrosis although at least one possible nonobstructing 3 mm stone is suggested within the right renal collecting system. Findings may represent underlying infectious/inflammatory changes within the right kidney. Correlate with urinalysis. The findings may also be related to recent passage of a stone which is no longer visualized. Scattered probable vascular calcifications are also noted in both kidneys. 2. Colonic diverticulosis with no CT evidence of acute diverticulitis. 3. Probable 3 cm left adrenal adenoma. No prior is available for comparison. This bears watching on subsequent studies to ensure stability. 06/30/2017 9:18 PM PROCEDURE INTERPRETED AT [facility] DEPARTMENT OF RADIOLOGY Final Report Signed by: Sonu Cortez
[2017-06-30] MEDS ORDERED: ONDANSETRON 4 MG/2 ML VIAL IV PRN (22:25)
[2017-06-30] MEDS ORDERED: ACETAMINOPHEN 325 MG TABLET PO PRN (22:25)
[2017-06-30] MEDS ORDERED: SODIUM CHLORIDE 0.45% 1,000 ML IV SCH (22:30)
--- NOTE | 2017-06-30 22:46 | Hospitalist History & Physical ---
Assessment and Plan (1) Pyelonephritis, acute Status: Acute Assessment and plan: Patient had UTI last month with E. coli and biased August again with E. coli pansensitive. We will continue Rocephin started in ER. She may need further urologic evaluation because of these recurrences. Will consult her urologist Dr. Jarvis. She has sepsis but normal lactic acid so it it is not severe sepsis. She was given a liter saline in the ER will continue normal saline for 24 hours. Current Visit: Yes (2) Sepsis Status: Acute Current Visit: Yes (3) Hyponatremia Status: Acute Assessment and plan: Mild. Will follow for now. Current Visit: Yes (4) Hypomagnesemia Status: Resolved Current Visit: No (5) Hypomagnesemia Status: Acute Assessment and plan: Fairly severe at 1.2. We will give 4 g mag sulfate tonight and reassess in the morning. Current Visit: Yes History of Present Illness Chief complaint: Fever, right flank pain, nausea, vomiting for three days. History of present illness: Ms. Merida is a 72 year old female Who presents with 3 day history of right flank pain, nausea, vomiting, fever. She was treated for UTI a month ago. Record shows it was E. coli pansensitive. She did okay since then until 3 days ago with when she developed the above symptoms. They have been severe with significant malaise. Nothing aggravated or alleviated her symptoms. There was no hematemesis, diarrhea, cough. Workup in the ER showed temp 101.6, pulse 113, BP 115/56. Lab work showed white count 23.2, hemoglobin 13.5, platelets 183, sodium 134, lactic acid 1.7, magnesium 1.2. Urinalysis showed large leukocyte Estrace 89 white cells on micro. CT abdomen and pelvis contrast showed nonspecific asymmetric increased right perinephric stranding and retroperitoneal fat. No definite hydronephrosis although at least 1 possible nonobstructing 3 mm stone suggested in the right renal collecting system. Findings may represent underlying infectious, inflammatory changes within the right kidney. She was given a gram of ceftriaxone. 2 g magnesium were ordered. She was given a liter bolus of normal saline. She is feels she is feeling better since receiving this treatment. Home Medications Medication Instructions Recorded Confirmed Type Aspirin [Ecotrin] 81 mg PO DAILY 11/02/16 06/30/17 History Atorvastatin [Lipitor] 10 mg PO DAILY 11/02/16 06/30/17 History Benazepril HCl [Lotensin] 20 mg PO DAILY 11/02/16 06/30/17 History Duloxetine HCl [Duloxetine] 60 mg PO DAILY 11/02/16 06/30/17 History amLODIPine [Norvasc] 10 mg PO DAILY 11/02/16 06/30/17 History carBAMazepine TAB [TEGretol TAB] 200 mg PO BID 11/02/16 06/30/17 History metFORMIN [Glucophage] 500 mg PO BID W/MEALS 11/02/16 06/30/17 History Ibuprofen 400 mg PO BID 06/30/17 06/30/17 History Allergies Allergy/AdvReac Type Severity Reaction Status Date / Time Iodinated Contrast Media - Allergy ITCHING Verified 11/03/16 00:15 Oral and [Iodinated Contrast Media - IV Dye] Medical,Surgical,& Family Hx - Medical History Cardio: History of: Hypertension Psychological: History of: Depression Neurology: History of: TIA, Neurological Problems (trigeminal neuralgia) No history of: Cerebrovascular Accident Endocrine: History of: Diabetes Mellitus (NIDDM) Respiratory: History of: COPD Musculoskeletal: History of: Musculoskeletal Problems (osteoarthritis) - Surgical History Reproductive Surgeries: Surgical HX of;: Breast Surgery (breast reduction), Tubal Ligation - Family History Family History: Reports;: Family Cancer (mother - breast [place]), Family Heart Disease (father - [place]), Family Hypertension - Social History Smoking Status: Current every day smoker Frequency of Alcohol Use: None Type of Drug Use: None Marital Status: (Patient does not have a living will. would be surrogate decision-maker if necessary.) Lives With:: Spouse Functional capacity: independent ambulation 12 point system: reviewed and no additional remarkable complaints except as stated Exam - Constitutional Vitals: Period Temp Pulse Resp BP Sys/Valdes Pulse Ox Last 24 Hr 101.6 F-101.6 F 113-113 16-18 115-115/56-56 95 General appearance: over weight - Head Head exam: Present: normal inspection - Eye Eye exam: Present: EOMI. Absent: conjunctival injection, scleral icterus Pupils: Present: LINDA, normal accommodation - ENT ENT exam: Present: normal exam, normal external ear exam, normal oropharynx - Neck Neck exam: Present: normal inspection. Absent: lymphadenopathy, thyromegaly - Respiratory Respiratory exam: Present: clear to auscultation bilaterally. Absent: accessory muscle use, chest wall tenderness, rales, rhonchi - Cardiovascular Cardiovascular exam: Absent: JVD, regular rate and rhythm - GI/Abdominal GI/Abdominal exam: Present: tenderness (Right lateral abdominal tenderness present. 2+ right CVA tenderness present.). Absent: normal bowel sounds - Extremities Exam Extremities exam: Present: normal inspection. Absent: edema - Back Exam Back exam: Present: CVA tenderness (R) - Neurological Exam Neurological exam: Present: alert, oriented X3 - Psychiatric Psychiatric exam: Present: normal affect, normal mood - Skin Skin exam: Present: normal color, warm. Absent: rash Results - Labs CBC & BMP: 06/30/17 20:42 06/30/17 20:42 - Diagnostic Findings Procedure: CT Abdomen and Pelvis: report reviewed by me (reviewed)
[2017-07-01] MEDS: SODIUM CHLORIDE 0.9% 1,000 ML IV SCH ×3 (00:46→22:52)
--- NOTE | 2017-07-01 06:56 | XRay Report ---
Exam: XR chest 1V portable Date: 06/30/2017 8:35 PM Indication: Abdominal pain Comparison: 11/04/2016 Technical: AP Findings: Mild prominence the cardiac silhouette. Granuloma calcifications present left base. Decreased interstitial alveolar edema and effusions present with compared to previous exam. No pneumothorax. Mediastinum is intact. Lateral marginal osteophytes are noted. Impression: 1. Mild cardiomegaly 2. Underlying component of mild COPD and scarring 3. Improved aeration with resolution of CHF findings when compared to previous studies 4. Granuloma changes 5. Degenerative spondylosis change thoracic spine PROCEDURE INTERPRETED AT [facility] DEPARTMENT OF RADIOLOGY Final Report Signed by: Dr. Jack Manriquez
[2017-07-01 07:00] LABS: Albumin 2.3 G/DL (3.4-5.0); Bilirubin,Total 0.9 MG/DL (0.2-1.0); Calcium 7.5 MG/DL (8.5-10.1); Magnesium 2.7 MG/DL (1.8-2.4); Osmolality,Calculated 274.1 MOS/KG (273-304); Potassium 3.7 MMOL/L (3.5-5.1); Total Protein 5.5 G/DL (6.4-8.3)
[2017-07-01 07:15] LABS: Basophils % 0.2 % (0.0-0.8); Eosinophils % 0.1 % (0.00-10.9); Hematocrit 35.7 VOL% (35.7-47.0); Hemoglobin 11.9 GM/DL (12.0-16.0); Immature Granulocytes % 2.3 %; Immature Granulocytes Absolute 0.47 #; Lymphocytes # 0.9 10*3/uL (1.4-4.0); Lymphocytes % 4.5 % (21.3-54.2); Mean Corpuscular HGB Conc 33.3 GM/DL (32-36); Mean Corpuscular Hemoglobin 32 PG (27-34); Mean Corpuscular Volume 95.2 FL (87-102); Mean Platelet Volume 10.2 FL (9.6-12.0); Monocytes % 4.7 % (1.7-12.7); Neutrophils # 17.9 10*3/uL (1.4-7.4); Neutrophils % 88.2 % (38.7-73.9); Platelet Count 154 T/CUMM (130-400); Red Blood Count 3.75 MC/CUMM (3.8-5.5); Red Cell Distribution Width 14.6 % (9.3-17.3); White Blood Count 20.3 T/CUMM (4-12)
--- NOTE | 2017-07-01 07:53 | Urology Consultation ---
History of Present Illness - Data of Consult Consult date: 07/01/17 - Consult Narrative History of present illness: Ms. Merida is a 72 year old female Ms. Merida is a 9-year-old white female that I have seen previously. She presents presents now with a 2-3 week history of symptoms of lower urinary tract infection and has been seen by Dr. Stern who is given her 2 rounds of oral antibiotics. She was unaware if her urine culture has been done. While she was on these antibiotics she said that she was developing pain in the right flank and she is also had fever and chills. When seen in the emergency room she had an elevated white count elevated temperature and pyuria. Her creatinine is 1.[address] scan of the abdomen shows a suggestion of right pyelonephritis but there is no evidence of obstruction. She is got findings of possible adrenal adenoma and 2 small nonobstructing renal stones 1 mm and 3 mm. The patient thinks that she feels better this morning. Her abdomen is soft nontender but she does have positive right CVA tenderness. When she got right pyelonephritis and possible sepsis. I agree with the current antibiotics pending culture results. I do not plan any further evaluation for urinary tract infection this admission but if anything else needs to be done I will plan to do this as an outpatient post discharge CC: Kevan Vargas - Home Medications and Allergies Home Medications: Home Medications Medication Instructions Recorded Confirmed Type Aspirin [Ecotrin] 81 mg PO DAILY 11/02/16 06/30/17 History Atorvastatin [Lipitor] 10 mg PO DAILY 11/02/16 06/30/17 History Benazepril HCl [Lotensin] 20 mg PO DAILY 11/02/16 06/30/17 History Duloxetine HCl [Duloxetine] 60 mg PO DAILY 11/02/16 06/30/17 History amLODIPine [Norvasc] 10 mg PO DAILY 11/02/16 06/30/17 History carBAMazepine TAB [TEGretol TAB] 200 mg PO BID 11/02/16 06/30/17 History metFORMIN [Glucophage] 500 mg PO BID W/MEALS 11/02/16 06/30/17 History Ibuprofen 400 mg PO BID 06/30/17 06/30/17 History Allergies/Adverse Reactions: Allergies Allergy/AdvReac Type Severity Reaction Status Date / Time Iodinated Contrast Media - Allergy ITCHING Verified 01/11/17 00:15 Oral and [Iodinated Contrast Media - IV Dye] Medical,Surgical,& Family Hx - Medical History Cardio: History of: Hypertension Psychological: History of: Depression (on cymbalta for neuralgia) Neurology: History of: TIA, Neurological Problems (trigeminal neuralgia) No history of: Cerebrovascular Accident Endocrine: History of: Diabetes Mellitus (NIDDM) Respiratory: History of: COPD Musculoskeletal: History of: Musculoskeletal Problems (osteoarthritis) - Surgical History Reproductive Surgeries: Surgical HX of;: Breast Surgery (breast reduction), Tubal Ligation - Family History Family History: Reports;: Family Cancer (mother - breast [place]), Family Heart Disease (father - [place]), Family Hypertension - Social History Smoking Status: Current every day smoker Frequency of Alcohol Use: None Type of Drug Use: None Exam - Constitutional Vitals: Period Temp Pulse Resp BP Sys/Valdes Pulse Ox Last 24 Hr 97.8 F-101.6 F 94-113 16-24 114-140/52-74 92-98 Results - Labs CBC & BMP: 06/30/17 20:42 07/01/17 06:16
[2017-07-01 08:01] LABS: Hypochromasia 2+; Microcytosis 1+
[2017-07-01] MEDS: ATORVASTATIN 10 MG TABLET PO SCH (09:39)
[2017-07-01] MEDS: amLODIPine 10 MG TABLET PO SCH (09:39)
[2017-07-01] MEDS: DULoxetine 30 MG CAPSULE PO SCH (09:40)
[2017-07-01] MEDS: carBAMazepine 200 MG TABLET PO SCH ×2 (09:40→21:38)
[2017-07-01] MEDS: IBUPROFEN 400 MG TABLET PO SCH ×2 (09:40→21:38)
[2017-07-01] MEDS: metFORMIN 500 MG TABLET PO SCH ×2 (09:40→17:16)
[2017-07-01] MEDS: BENAZEPRIL 40 MG TABLET PO SCH (09:40)
[2017-07-01] MEDS: ENOXAPARIN 40 MG/0.4 ML SYRINGE SUBCUT SCH (09:41)
[2017-07-01] MEDS: ASPIRIN EC 81 MG TABLET PO SCH (09:41)
--- NOTE | 2017-07-01 10:56 | Hospitalist Progress Note ---
Assessment and Plan (1) Renal insufficiency Status: Acute Assessment and plan: BUN 21 and creatinine !.2. Current Visit: Yes (2) Pyelonephritis, acute Status: Acute Assessment and plan: Patient is on IV ceftriaxone. Current Visit: Yes (3) Sepsis Status: Acute Assessment and plan: Resolved. Current Visit: Yes Qualifiers: Sepsis type: sepsis due to unspecified organism Qualified Code(s): A41.9 - Sepsis, unspecified organism Hospitalist: Subjective Interval history: Patient was admitted to the hospital last night with pyelonephritis. She has a previous history of urinary tract infection. Urine cultures are demonstrating a gram negative henna. She was begun on treatment with intravenous ceftriaxone. She has been seen in consultation by Dr. Jarvis of urology. Exam - Constitutional Vitals: Period Temp Pulse Resp BP Sys/Valdes Pulse Ox Last 24 Hr 97.8 F-101.6 F 94-113 16-24 114-140/52-74 91-98 General appearance: no acute distress - Head Head exam: Present: normal inspection - Neck Neck exam: Present: normal inspection - Respiratory Respiratory exam: Present: clear to auscultation bilaterally - Cardiovascular Cardiovascular exam: Present: regular rate and rhythm - GI/Abdominal GI/Abdominal exam: Present: normal bowel sounds, soft, other (Right flank tenderness.) - Extremities Exam Extremities exam: Present: normal inspection - Neurological Exam Neurological exam: Present: alert, oriented X3 - Skin Skin exam: Present: normal color, warm, intact Results - Labs CBC & BMP: 07/01/17 06:16 07/01/17 06:16
[2017-07-01] MEDS ORDERED: cefTRIAXone 1,000 MG in SODIUM CHLORIDE 0.9% 100 ML IV SCH (21:00)
[2017-07-02 06:14] LABS: Basophils % 0.2 % (0.0-0.8); Eosinophils # 0.1 10*3/uL (0.0-0.87); Hematocrit 32.1 VOL% (35.7-47.0); Hemoglobin 10.5 GM/DL (12.0-16.0); Immature Granulocytes % 0.8 %; Immature Granulocytes Absolute 0.12 #; Lymphocytes # 1.1 10*3/uL (1.4-4.0); Lymphocytes % 7.6 % (21.3-54.2); Mean Corpuscular HGB Conc 32.7 GM/DL (32-36); Mean Corpuscular Hemoglobin 32 PG (27-34); Mean Corpuscular Volume 96.7 FL (87-102); Mean Platelet Volume 10.2 FL (9.6-12.0); Neutrophils # 12.1 10*3/uL (1.4-7.4); Neutrophils % 83.4 % (38.7-73.9); Platelet Count 131 T/CUMM (130-400); Red Blood Count 3.32 MC/CUMM (3.8-5.5); Red Cell Distribution Width 14.6 % (9.3-17.3); White Blood Count 14.5 T/CUMM (4-12)
[2017-07-02 06:43] LABS: Calcium 7.3 MG/DL (8.5-10.1)
[2017-07-02 06:44] LABS: Potassium 3.6 MMOL/L (3.5-5.1)
[2017-07-02 06:45] LABS: Band Neutrophils 6 % (0-10); Eosinophils 2 % (0-10); Lymphocytes 4 % (20-55); Segmented Neutrophils 84 % (50-85); Total Cells Counted 100
[2017-07-02 06:46] LABS: Hypochromasia 1+; Microcytosis 1+; Platelet Estimate Adequate
[2017-07-02] MEDS: DULoxetine 30 MG CAPSULE PO SCH (09:18)
[2017-07-02] MEDS: BENAZEPRIL 40 MG TABLET PO SCH (09:18)
[2017-07-02] MEDS: ASPIRIN EC 81 MG TABLET PO SCH (09:18)
[2017-07-02] MEDS: metFORMIN 500 MG TABLET PO SCH (09:18)
[2017-07-02] MEDS: amLODIPine 10 MG TABLET PO SCH (09:18)
[2017-07-02] MEDS: IBUPROFEN 400 MG TABLET PO SCH (09:18)
[2017-07-02] MEDS: ENOXAPARIN 40 MG/0.4 ML SYRINGE SUBCUT SCH (09:19)
[2017-07-02] MEDS: ATORVASTATIN 10 MG TABLET PO SCH (09:19)
[2017-07-02] MEDS: carBAMazepine 200 MG TABLET PO SCH (09:19)
--- NOTE | 2017-07-02 10:51 | Discharge Summary ---
Hospital Course - Hospital Course Hospital Course: Patient was hospitalized with complaints of right flank and abdominal pain. A CT scan of the abdomen and pelvis demonstrated no acute abnormalities. Urine culture and blood cultures demonstrated gram-negative rods compatible with pyelonephritis and bacteremia. She was treated in the hospital with intravenous ceftriaxone. She improved rapidly they are after by the following day wished to go home. At the time of her discharge she was stable with no complaints. She was seen in consultation during her hospitalization by Dr. Ruel Jarvis who concurred with the assessment and treatment. Diagnosis - Discharge Diagnosis (1) Renal insufficiency Status: Acute (2) Pyelonephritis, acute Status: Acute (3) Sepsis Status: Acute (4) Bacteremia due to Gram-negative bacteria Status: Acute Discharge Plan - Discharge Data Disposition: Disch To Home/Self Care Condition at Discharge: Stable Discharge Diet: advance to your usual diet Activity: resume usual activities as tolerated - Discharge Medications New cephALEXin [Keflex] 500 mg PO Q8HR #21 capsule Continue carBAMazepine TAB [TEGretol TAB] 200 mg PO BID amLODIPine [Norvasc] 10 mg PO DAILY Benazepril HCl [Lotensin] 20 mg PO DAILY Atorvastatin [Lipitor] 10 mg PO DAILY metFORMIN [Glucophage] 500 mg PO BID W/MEALS Ibuprofen 400 mg PO BID Aspirin [Ecotrin] 81 mg PO DAILY Duloxetine HCl [Duloxetine] 60 mg PO DAILY - Follow Up or Referral - Forms/Instructions Exam - Constitutional Vitals: Period Temp Pulse Resp BP Sys/Valdes Pulse Ox Last 24 Hr 97.3 F-98.8 F 96-106 18-18 120-139/57-67 92-94 Discharge Results Procedures and tests throughout hospitalization: Pending Orders 06/30/17 Urine Culture Routine 06/30/17 20:45 Blood Culture Stat Labs on day of discharge: Labs from last 24 hours 07/02/17 07/02/17 07/02/17 08:53 06:05 06:05 WBC 14.5 H RBC 3.32 L Hgb 10.5 L Hct 32.1 L MCV 96.7 MCH 32 MCHC 32.7 RDW 14.6 Plt Count 131 MPV 10.2 Neut % (Auto) 83.4 H Lymph % (Auto) 7.6 L Owen % (Auto) 7.0 Eos % (Auto) 1.0 Baso % (Auto) 0.2 Neut # (Auto) 12.1 H Lymph # (Auto) 1.1 L Owen # (Auto) 1.0 H Eos # (Auto) 0.1 Baso # (Auto) 0.0 Total Counted 100 Immature Gran % 0.8 Nucleated RBC % 0.0 Immature Gran # 0.12 Segmented Neutrophils 84 Band Neutrophils 6 Lymphocytes 4 L Monocytes 4 Eosinophils 2 Nucleated RBCs # 0.00 Platelet Estimate Adequate Immature Plt Fraction 0.0 Hypochromasia 1+ Microcytosis 1+ Sodium 136 Potassium 3.6 Chloride 104 Carbon Dioxide 23 Anion Gap 12.6 BUN 28 H Creatinine 1.40 H GFR Calculation 40 BUN/Creatinine Ratio 20.00 Glucose 113 H POC Glucose 145 H Calculated Osmolality 278.0 Calcium 7.3 L 07/01/17 07/01/17 07/01/17 20:28 16:10 11:13 WBC RBC Hgb Hct MCV MCH MCHC RDW Plt Count MPV Neut % (Auto) Lymph % (Auto) Owen % (Auto) Eos % (Auto) Baso % (Auto) Neut # (Auto) Lymph # (Auto) Owen # (Auto) Eos # (Auto) Baso # (Auto) Total Counted Immature Gran % Nucleated RBC % Immature Gran # Segmented Neutrophils Band Neutrophils Lymphocytes Monocytes Eosinophils Nucleated RBCs # Platelet Estimate Immature Plt Fraction Hypochromasia Microcytosis Sodium Potassium Chloride Carbon Dioxide Anion Gap BUN Creatinine GFR Calculation BUN/Creatinine Ratio Glucose POC Glucose 129 H 129 H 150 H Calculated Osmolality Calcium Preliminary micro results at discharge 06/30/17 20:45 Blood Culture - Preliminary Blood Gram Negative Rods 06/30/17 20:42 Blood Culture - Preliminary Blood Gram Negative Rods 06/30/17 Unknown Urine Culture - Preliminary Urine,Catheterized Gram Negative Rods DS: Provider Date of admission: 06/30/17 22:25 Primary care physician: . No PCP Attending physician on admission: Fam Eckert MD Consults: 06/30/17 22:25 Consult to Physician [CONS] Routine Comment: pyelonephritis Consulting Provider: Ruel Jarvis Discharging clinician: Kevan Vargas
[2017-07-02 12:34] VITALS: BP 139/73
== END 2017-07-02 12:35 | disposition home or self-care (01) | DRG 872 ==
LOC: N.ED 19:50 → SUATTDRO 22:25 → N.EDINP 22:25 → N.2E 23:09
PROVIDERS: ADMIT Family Medicine

== ENCOUNTER 2017-07-07 01:54 | Inpatient (IN) ==
[2017-07-07] MEDS ORDERED: DILTIAZEM 50 MG/10 ML VIAL IV STA (02:15)
[2017-07-07] MEDS ORDERED: DILTIAZEM 100 MG VIAL.ADD IV ONE (02:23)
[2017-07-07] MEDS ORDERED: SODIUM CHLORIDE 0.9% 100 ML IV ONE (02:24)
--- NOTE | 2017-07-07 02:25 | Emergency Department Note ---
Radha Dexter Brittany, am scribing for, and in the presence of, Honey Carrillo DO 02: 23. IGerardo Debra, DO, personally performed the services described in this documentation, ascribed by Lurdes Garcia in my presence, and it is both accurate and complete . Arrival - Arrival Chief Complaint: Arrhythmia/Palpitations Stated Complaint: Palpitations ED Nursing Triage Note: C/C transfer from [facility] with A-Flutter/Fib. No history or cardiac dysrythmia. Pt was Cardizem bolus and infusion, Lasix 40mg, Rocephin 1g. Mode of Arrival: Stretcher Limitations: No Limitations Source: Patient Time Seen by Provider: 07/07/17 02:09 - History of Present Illness HPI Narrative: This is a 72 y/o white female,who presents to the ED by EMS for further evaluation of A-fib/A-flutter which started earlier today. She was transferred from [facility] for further evaluation of A-fib. She states her lower extremities have been swelling and she has been SOB. She denies any CP. She notes for the past 3 weeks she has had a kidney infection and has thought she was not feeling good secondary to the kidney infection. Pt has no other complaints/pain in the ED at this time. Pt has a PMHx of HTN, TIA, NIDDM, depression, trigeminal neuralgia, COPD, renal problems, and OA. Pt has had an appendectomy, breast surgery, and tubal ligation. Pt has a family medical Hx of breast cancer, heart disease, and HTN. Pt is a current every day smoker. Onset (ago): hour(s) (Started earlier today) Consistency: constant Severity: moderate Allergies/Adverse Reactions: Allergies Allergy/AdvReac Type Severity Reaction Status Date / Time Iodinated Contrast Media - Allergy ITCHING Verified 07/07/17 02:11 Oral and [Iodinated Contrast Media - IV Dye] Home Medications: Home Medications Medication Instructions Recorded Confirmed Type Aspirin [Ecotrin] 81 mg PO QPM 11/02/16 07/04/17 History Atorvastatin [Lipitor] 10 mg PO QAM 11/02/16 07/04/17 History Benazepril HCl [Lotensin] 20 mg PO QPM 11/02/16 07/04/17 History Duloxetine HCl [Duloxetine] 60 mg PO QAM 11/02/16 07/04/17 History amLODIPine [Norvasc] 10 mg PO QAM 11/02/16 07/04/17 History carBAMazepine TAB [TEGretol TAB] 200 mg PO BID 11/02/16 07/04/17 History metFORMIN [Glucophage] 500 mg PO BID W/MEALS 11/02/16 07/04/17 History Ibuprofen 400 mg PO BID 06/30/17 07/04/17 History cephALEXin [Keflex] 500 mg PO Q8HR #21 capsule 07/02/17 07/04/17 Rx Baclofen 10 mg PO TID #30 tablet 07/04/17 Rx Review of System - Review of System 12 point system: reviewed and no additional remarkable complaints except as stated - Review of System Respiratory: Present: wheezing Cardiovascular: Present: palpitations, other (A-fib/A-flutter). Absent: chest pain Medical,Surgical,& Family Hx - Medical History Cardio: History of: Hypertension Psychological: History of: Depression (on cymbalta for neuralgia) Neurology: History of: TIA, Neurological Problems (trigeminal neuralgia) No history of: Cerebrovascular Accident Endocrine: History of: Diabetes Mellitus (NIDDM) Respiratory: History of: COPD Renal: History of: Renal Problems (PYELONEPHRITIS) Musculoskeletal: History of: Musculoskeletal Problems (osteoarthritis) - Surgical History Abdominal Surgeries: Surgical HX of: Appendectomy Reproductive Surgeries: Surgical HX of;: Breast Surgery (breast reduction), Tubal Ligation - Family History Family History: Reports;: Family Cancer (mother - breast CA), Family Heart Disease (father - CT), Family Hypertension - Social History Smoking Status: Current every day smoker Frequency of Alcohol Use: None Type of Drug Use: None Exam Vital Signs: Vital Signs Temperature 97 F L 07/07/17 01:56 Pulse Rate 126 H 07/07/17 01:56 Respiratory Rate 16 07/07/17 01:56 Blood Pressure 157/90 07/07/17 01:56 O2 Sat by Pulse Oximetry 93 L 07/07/17 01:56 - General General appearance: alert, in no apparent distress, obese - Eye Eye exam: Present: normal appearance, PERRL, EOMI - Neck Neck exam: Present: full ROM, trachea midline. Absent: tenderness - Chest Chest inspection: Present: normal inspection, symmetric chest wall rise - Respiratory Respiratory exam: Present: rales (Rales, the right is worse than the left). Absent: normal lung sounds bilaterally, respiratory distress - Cardiovascular Cardiovascular exam: Present: tachycardia, irregular rhythm, normal heart sounds. Absent: regular rate, normal rhythm, JVD - Abdominal Exam Abdominal exam: Present: soft. Absent: tenderness - Extremities Exam Extremities exam: Present: pedal edema (+2 pitting edema) - Neurological Exam Neurological exam: Present: alert, oriented X3, CN II-XII intact. Absent: motor sensory deficit - Psychiatric Psychiatric exam: Present: normal affect, normal mood. Absent: depressed, agitated, anxious, flat affect - Skin Skin exam: Present: warm, dry, intact, normal color. Absent: rash, cyanosis, diaphoresis Course Course Narrative: Patient will be admitted to the hospitalist service. She is stable at this time. We will increase the Cardizem drip to 15 due to heart rate being in the 130s. Patient's blood pressure is 160/90 and can tolerate an increase in the Cardizem drip. Results - Labs Lab Results: I have reviewed the patients labs Labs: Laboratory Tests 07/07/17 07/07/17 03:55 03:55 Total Creatine Kinase 16 L CK-MB (CK-2) 1.1 Troponin I < 0.015 B-Natriuretic Peptide 702 H Disposition Clinical Impression: Atrial fibrillation Case discussed with: patient, patient's family Disposition: Still a Patient Condition: Stable Time of Disposition: 04:45
[2017-07-07] MEDS: DILTIAZEM INJ 100 MG in SODIUM CHLORIDE 0.9% 100 ML IV SCH (02:37)
[2017-07-07 04:19] LABS: Troponin I Only < 0.015 NG/ML (0.00-0.045)
[2017-07-07] MEDS ORDERED: ACETAMINOPHEN 325 MG TABLET PO PRN (04:36)
[2017-07-07] MEDS ORDERED: DOCUSATE SODIUM 100 MG CAPSULE PO PRN (04:36)
[2017-07-07] MEDS ORDERED: BISACODYL 5 MG TABLET PO PRN (04:36)
[2017-07-07] MEDS ORDERED: ONDANSETRON 4 MG/2 ML VIAL IV PRN (04:36)
[2017-07-07] MEDS ORDERED: METOPROLOL TARTRATE 5 MG/5 ML VIAL IV ONE ×2 (05:07→05:11)
[2017-07-07] MEDS ORDERED: LEVALBUTEROL 0.31 MG/3 ML NEB RESP TX PRN (05:10)
--- NOTE | 2017-07-07 05:15 | Hospitalist History & Physical ---
Assessment and Plan (1) Atrial fibrillation Status: Acute Current Visit: Yes (2) COPD with acute exacerbation Status: Acute Current Visit: Yes (3) CHF exacerbation Status: Acute Current Visit: Yes (4) Benign essential hypertension Status: Acute Current Visit: Yes (5) Hypomagnesemia Status: Acute Current Visit: No (6) Urinary tract infection Status: Acute Current Visit: No (7) Gtz-ssjyplr-taxyntbdu diabetes mellitus without complications Status: Acute Current Visit: Yes (8) Altered mental status, unspecified Status: Acute Assessment and plan: Plan: 1. Admit to Telemetry, Continue Cardizem drip. Will add one time dose of Lopressor to see if HR is better controlled, may need additional doses. Full dose anticoagulation BID for new onset Atrial fibrillation, Repeat EKG in am. Troponin negative. Consult Cardiology, ECHO in am. Resume home dose Antihypertensives. Continue lasix IV BID based on repeat BNP. Continue ASA. Cardiac diet. 2. Titrate Oxygen to maintain o2 sats greater than 88%. Xopenex and Lasix for wheezing. Azithromax and Rocephin for COPD exacerbation. Chest xray this am. 3. No indication for transfusion, monitor labs, no IV fluids at this time. 4. Protonix for PUD, on full dose lovenox for now, will defer management for home anticoagulation to Cardiology. 5. Blood cultures redrawn as well as urinary culture, on Rocephin and Azithromax for COPD exacerbation, follow cultures. Discontinue ge as soon as possible. 6. Replace electrolytes as needed. Reassess labs this am. Magnesium has been replaced. Mental status has improved. The patient has been alert and oriented 7. Accu cks q 6 hours, Low dose insulin sliding scale. Sixty minutes was spent on this patient not including procedures. Current Visit: Yes History of Present Illness Chief complaint: AMS/ Palpitations History of present illness: Ms. Merida is a 72 year old female with past medical history significant for COPD, CHF, HTN, TIA, NIDDM, Depression, Trigeminal neuralgia, and Pylonephritis with recent discharge from [facility] that was transferred from [facility] for higher level of care from cardiology for Atrial fibrillation/ Atrial Flutter, Altered menat status, worsening SOB and edema, and UTI. The patient was discharged on 07/02 2017 from [place] from being treated for Pylonephritis, Sepsis, Bacteremia, and Renal insufficiency. She was treated for babb sensitive ecoli with Rocephin with significant improvement. Daughter and patient are historians, the patient has been having increasing confusion over the last 3 days and over the last 2 days she started having worsening SOB as well as increasing edema. She was taken to [facility] yesterday afternoon due to no improvement of symptoms, other associated symptoms included confusion, increased palpitations, wheezing, dyspnea, and pitting edema. They denied any chest pain, nausea, vomiting, dysuria. EKG revealed Atrial Fibrillation/ Flutter she was started on Cardizem bolus and then Cardizem drip. HR continues to be irregular in Atrial fibrillation. Cardizem drip was currently 10mg in the Ed upon my assessment with adequate SBP. She was given additional lasix, 40mg. Her magnesium was initially 2.1, BNP 8000, negative troponin, normocytic anemia noted, and hyperglycemia. CT scan of the brain from OSH revealed no acute intracranial pathology. Urinalysis positive for bacteria, and leukocyte est. The patient was admitted to the Hospitalist service on the Telemetry floor with Cardiology consult. Home Medications Medication Instructions Recorded Confirmed Type Aspirin [Ecotrin] 81 mg PO QPM 11/02/16 07/04/17 History Atorvastatin [Lipitor] 10 mg PO QAM 11/02/16 07/04/17 History Benazepril HCl [Lotensin] 20 mg PO QPM 11/02/16 07/04/17 History Duloxetine HCl [Duloxetine] 60 mg PO QAM 11/02/16 07/04/17 History amLODIPine [Norvasc] 10 mg PO QAM 11/02/16 07/04/17 History carBAMazepine TAB [TEGretol TAB] 200 mg PO BID 11/02/16 07/04/17 History metFORMIN [Glucophage] 500 mg PO BID W/MEALS 11/02/16 07/04/17 History Ibuprofen 400 mg PO BID 06/30/17 07/04/17 History cephALEXin [Keflex] 500 mg PO Q8HR #21 capsule 07/02/17 07/04/17 Rx Baclofen 10 mg PO TID #30 tablet 07/04/17 Rx Allergies Allergy/AdvReac Type Severity Reaction Status Date / Time Iodinated Contrast Media - Allergy ITCHING Verified 07/07/17 02:11 Oral and [Iodinated Contrast Media - IV Dye] Medical,Surgical,& Family Hx - Medical History Cardio: History of: Cerebrovascular Disease, CHF, Hypertension Psychological: History of: Depression (on cymbalta for neuralgia) Neurology: History of: TIA, Neurological Problems (trigeminal neuralgia) No history of: Cerebrovascular Accident Endocrine: History of: Diabetes Mellitus (NIDDM) Respiratory: History of: COPD Renal: History of: Renal Problems (PYELONEPHRITIS) Genitourinary: History of: Recurring Urinary Tract Infections Gastrointestinal: History of: GI Problems (Constipation) Musculoskeletal: History of: Musculoskeletal Problems (osteoarthritis) Hematology: History of: Anemia - Surgical History Surgical History: noncontributory Abdominal Surgeries: Surgical HX of: Appendectomy Reproductive Surgeries: Surgical HX of;: Breast Surgery (breast reduction), Tubal Ligation - Family History Family History: Reports;: Family Cancer (mother - breast CA), Family Heart Disease (father - [place]), Family Hypertension - Social History Smoking Status: Current every day smoker Time spent discussing smoking cessation with patient: 3 to 10 minutes Frequency of Alcohol Use: None Type of Drug Use: None Lives With:: Children 12 point system: reviewed and no additional remarkable complaints except as stated - Constitutional Constitutional: Present: fatigue, malaise, weakness, other - EENT Ears: Present: as per HPI Nose, mouth and throat: Absent: dysphagia, sore throat, tongue swelling - Cardiovascular Cardiovascular: Present: dyspnea, edema, palpitations. Absent: chest pain at rest, chest pain with activity - Respiratory Respiratory: Present: wheezing - Gastrointestinal Gastrointestinal: Present: bloating, constipation. Absent: heartburn, hematemesis, hematochezia - Genitourinary Genitourinary: Absent: dysuria, urinary frequency, urinary hesitancy - Musculoskeletal Musculoskeletal: Present: back pain - Neurological Neurological: Present: confusion - Psychiatric Psychiatric: Present: depression - Endocrine Endocrine: Present: fatigue - Hematologic/Lymphatic Hematologic/Lymphatic: Present: other (hx of anemia) Exam - Constitutional Vitals: Period Temp Pulse Resp BP Sys/Valdes Pulse Ox Last 24 Hr 97 F-97 F 90-126 16-16 157-157/90-90 93 General appearance: mild distress, morbidly obese - Head Head exam: Present: normal inspection, normocephalic, atraumatic - Eye Eye exam: Present: EOMI Pupils: Present: LINDA, normal accommodation - ENT ENT exam: Present: normal exam - Respiratory Respiratory exam: Present: decreased breath sounds (decreased breath sounds in bilateral bases), wheezes. Absent: accessory muscle use - Cardiovascular Cardiovascular exam: Present: irregular rhythm, tachycardia. Absent: JVD - GI/Abdominal GI/Abdominal exam: Present: distended, hypoactive bowel sounds, soft - Extremities Exam Extremities exam: Present: edema (3+ pitting Edema) - Neurological Exam Neurological exam: Present: alert, oriented X3, CN II-XII intact - Psychiatric Psychiatric exam: Present: normal affect - Skin Skin exam: Present: warm, dry, intact Results - Labs Lab Results: I have reviewed the past 24 hour labs - EKG EKG shows: atrial fibrillation
[2017-07-07] MEDS ORDERED: DEXTROSE 50% 25 GM/50 ML SYRINGE IV PRN (05:56)
[2017-07-07] MEDS ORDERED: GLUCAGON 1 MG VIAL IM PRN (05:56)
[2017-07-07] MEDS ORDERED: ENOXAPARIN 80 MG/0.8 ML SYRINGE SUBCUT SCH (06:00)
[2017-07-07 06:58] LABS: Basophils # 0.1 10*3/uL (0.0-0.2); Basophils % 0.5 % (0.0-0.8); Eosinophils # 0.3 10*3/uL (0.0-0.87); Eosinophils % 2.5 % (0.00-10.9); Hematocrit 33.4 VOL% (35.7-47.0); Hemoglobin 11.2 GM/DL (12.0-16.0); Lymphocytes # 1.8 10*3/uL (1.4-4.0); Lymphocytes % 18.1 % (21.3-54.2); Mean Corpuscular HGB Conc 33.5 GM/DL (32-36); Mean Corpuscular Hemoglobin 31 PG (27-34); Mean Corpuscular Volume 93.6 FL (87-102); Mean Platelet Volume 10.2 FL (9.6-12.0); Monocytes # 1.1 10*3/uL (0.11-0.8); Monocytes % 10.7 % (1.7-12.7); Neutrophils # 6.8 10*3/uL (1.4-7.4); Neutrophils % 67.2 % (38.7-73.9); Platelet Count 270 T/CUMM (130-400); Red Blood Count 3.57 MC/CUMM (3.8-5.5); Red Cell Distribution Width 14.9 % (9.3-17.3); White Blood Count 10.1 T/CUMM (4-12)
[2017-07-07] MEDS ORDERED: AZITHROMYCIN INJ 500 MG in SODIUM CHLORIDE 0.9% 250 ML IV SCH (07:00)
--- NOTE | 2017-07-07 07:14 | XRay Report ---
XR chest 1V portable Indication: Shortness of breath Comparison: 06 July 2017 Findings: The heart and mediastinum are normal in size and configuration. The pulmonary vascularity is normal in caliber. No lung infiltrates, effusions, pneumothorax or other abnormality is demonstrated. Impression: Normal chest x-ray PROCEDURE INTERPRETED AT [facility] DEPARTMENT OF RADIOLOGY Final Report Signed by: Dr. Barak King
[2017-07-07 07:32] LABS: Calcium 8.4 MG/DL (8.5-10.1); Osmolality,Calculated 283.3 MOS/KG (273-304); Potassium 3.4 MMOL/L (3.5-5.1); Thyroid Stimulating Hormone 0.717 uIU/ml (0.358-3.74)
[2017-07-07] MEDS ORDERED: FUROSEMIDE 40 MG/4 ML VIAL IV SCH (09:00)
[2017-07-07] MEDS: INSULIN LISPRO 100 UNIT/ML SUBCUT SCH ×4 (09:12→22:02)
[2017-07-07] MEDS ORDERED: METOPROLOL SUCCINATE XL 50 MG TABLET PO SCH (09:30)
[2017-07-07] MEDS ORDERED: carBAMazepine CHEW 100 MG TABLET PO SCH (09:30)
[2017-07-07] MEDS: NICOTINE 21 MG/24 HR PATCH TRANSDERM SCH (09:55)
[2017-07-07] MEDS: POTASSIUM CHLORIDE 20 MEQ TABLET PO SCH (09:56)
[2017-07-07] MEDS: LEVOFLOXACIN 500 MG TABLET PO SCH (09:56)
[2017-07-07] MEDS: APIXABAN 5 MG TABLET PO SCH ×2 (09:56→22:01)
[2017-07-07] MEDS: PANTOPRAZOLE 40 MG TABLET PO SCH (09:56)
[2017-07-07] MEDS: ATORVASTATIN 10 MG TABLET PO SCH (09:57)
[2017-07-07] MEDS: AZITHROMYCIN 250 MG TABLET PO SCH (09:57)
[2017-07-07] MEDS: ASPIRIN EC 81 MG TABLET PO SCH (09:57)
[2017-07-07] MEDS: DULoxetine 30 MG CAPSULE PO SCH (09:57)
[2017-07-07] MEDS: cefTRIAXone 2,000 MG in SODIUM CHLORIDE 0.9% 100 ML IV SCH (09:58)
--- NOTE | 2017-07-07 10:29 | EKG Report ---
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
--- NOTE | 2017-07-07 11:23 | ECHO Report ---
Isabella Merida Exam Date: 07/07/2017 07:42 Referring Physician: Technologist: Nikky Hopkins RDCS Age: 72 Ht (in): 64 Wt (lb): 162 Gender: F Exam Location: [facility] Indications: Altered mental status, Atrial fibrillation, Palpitations, UTI, COPD, Shortness of breath, Heart failure, unspecified, NIDDM, Essential (primary) hypertension, Edema, unspecified, Hypomagnesemia BP: 142 / 96 HR: 88 Rhythm: Atrial fibrillation Technical Quality: IMPRESSIONS Normal left ventricular cavity size. Mild left ventricular hypertrophy. Left ventricular ejection fraction is estimated at 55 %. The right ventricle is normal in size and function. The right atrium is normal in size. Severely increased left atrial size. Moderately thickened mitral valve. Moderate mitral annular calcification. Mitral valve mean gradient is 8 mmHg at a heart rate of 88 bpm. Morphologically normal aortic valve without significant sclerosis or stenosis. There is no aortic regurgitation. Morphologically normal tricuspid valve. Mild to moderate tricuspid valve regurgitation. Tricuspid regurgitation velocities suggest a PAP of 75 mmHg. Morphologically normal pulmonic valve. Mild pulmonary valve regurgitation. Normal pericardium without effusion. Normal ascending aorta dimension. MEASUREMENTS (Male / Female) Normal Values 2D ECHO LV Diastolic Diameter PLAX 5.1 cm 4.2 - 5.9 / 3.9 - 5.3 cm LV Systolic Diameter PLAX 3.6 cm LV Fractional Shortening PLAX 28.9 % IVS Diastolic Thickness 1.3 cm 0.6 - 1.0 / 0.6 - 0.9 cm LVPW Diastolic Thickness 1.3 cm 0.6 - 1.0 / 0.6 - 0.9 cm RV Internal Dim ED PLAX 2.6 cm Aortic Root Diameter 3.1 cm LA Systolic Diameter LX 5.4 cm 3.0 - 4.0 / 2.7 - 3.8 cm DOPPLER TR Peak Velocity 403.0 cm/s TR Peak Gradient 65.0 mmHg FINDINGS Left Ventricle Normal left ventricular cavity size. Mild left ventricular hypertrophy. Left ventricular ejection fraction is estimated at 55 %. Right Ventricle The right ventricle is normal in size and function. Right Atrium The right atrium is normal in size. Left Atrium Severely increased left atrial size. Mitral Valve Moderately thickened mitral valve. Moderate mitral annular calcification. Mitral valve mean gradient is 8 mmHg at a heart rate of 88 bpm. Aortic Valve Morphologically normal aortic valve without significant sclerosis or stenosis. There is no aortic regurgitation. Tricuspid Valve Morphologically normal tricuspid valve. Mild to moderate tricuspid valve regurgitation. Tricuspid regurgitation velocities suggest a PAP of 75 mmHg. Pulmonic Valve Morphologically normal pulmonic valve. Mild pulmonary valve regurgitation. Pericardium Normal pericardium without effusion. Aorta Normal ascending aorta dimension. Luigi Galvin MD (Electronically Signed) Final Date: 07 July 2017 11:22
--- NOTE | 2017-07-07 12:23 | Hospitalist Progress Note ---
Assessment and Plan (1) Atrial fibrillation with rapid ventricular response Status: Acute Assessment and plan: Continue diltiazem drip, will give metoprolol 50 mg XL p.o. daily and wean off drip, start Eliquis Current Visit: Yes (2) COPD exacerbation Status: Resolved Assessment and plan: Will order duo nebs, chronic and stable will give her a nicotine patch for her nicotine addiction Current Visit: No (3) CHF exacerbation Status: Acute Assessment and plan: Echocardiogram showed an EF of 55% without diastolic dysfunction but she has moderate mitral valve regurg. May have failure secondary to that. Her elevated BNP may also be due to her pulmonary hypertension. Will ask cardiology for opinion. Current Visit: Yes (4) Benign essential hypertension Status: Acute Assessment and plan: Metoprolol 50 mg XL p.o. daily, wean off tilt drip, restart Lotensin Current Visit: Yes (5) Wux-wqvhlfx-jtvoctdjd diabetes mellitus without complications Status: Acute Assessment and plan: Continue metformin, continue insulin sliding scale Current Visit: Yes (6) Pulmonary hypertension Status: Acute Assessment and plan: Echocardiogram shows an PIP pressure of 75. Patient is a smoker and has COPD Current Visit: Yes Hospitalist: Subjective Interval history: Patient remains in A. fib. She is on 10 mg IV diltiazem. We will give her 50 of metoprolol XL. I am starting her on Eliquis. She is still to be seen by cardiology. She reports she has had episodes like this before but never diagnosed with atrial fib. She is a smoker and we will give her a nicotine patch. We will move her out of the unit as soon as a telemetry bed is available. We will attempt to wean her off diltiazem drip Exam - Constitutional Vitals: Period Temp Pulse Resp BP Sys/Valdes Pulse Ox Last 24 Hr 97 F-97.6 F 87-126 15-22 128-163/70-94 93-98 Exam: Heart Rate-[IRR] Lungs-[CTAB but diminished] GI-[+bs soft, NT] Ext-[no edema] Neuro [Motor 5/5], [alert and oriented times 3] psych [normal mood and affect] General [no acute distress] Results - Labs CBC & BMP: 07/07/17 06:45 07/07/17 06:45 Lab Results: I have reviewed the past 24 hour labs - Diagnostic Findings Procedure: Chest x-ray: report reviewed by me (Normal chest x-ray), Ultrasound: report reviewed by me (Echocardiogram EF of 55% with PA P 75, moderate mitral valve regurg)
[2017-07-07] MEDS: ASCORBIC ACID 500 MG TABLET PO SCH ×2 (12:28→22:02)
--- NOTE | 2017-07-07 12:58 | Cardiology Consult Note ---
Assessment and Plan - Time spent with patient Time spent with patient: Greater than 30 minutes (due to assessment, plan, and documentation) Time spent discussing smoking cessation with patient: more than 10 minutes (1) Atrial flutter with rapid ventricular response Status: Acute Assessment and plan: See plan of care listed below. Current Visit: Yes (2) COPD with acute exacerbation Status: Acute Assessment and plan: See plan of care listed below. Current Visit: Yes (3) Benign essential hypertension Status: Chronic Assessment and plan: See plan of care listed below. Current Visit: Yes (4) Hypokalemia Status: Acute Assessment and plan: See plan of care listed below. Current Visit: Yes (5) Congestive heart failure (CHF) Status: Acute Assessment and plan: See plan of care listed below. Current Visit: Yes Qualifiers: Congestive heart failure type: diastolic Congestive heart failure chronicity: acute Qualified Code(s): I50.31 - Acute diastolic (congestive) heart failure (6) Urinary tract infection Status: Acute Assessment and plan: See plan of care listed below. Current Visit: No (7) [id number] diabetes mellitus without complications Status: Chronic Assessment and plan: See plan of care listed below. Current Visit: Yes History of Present Illness - Data of Consult Patient: new to practice Consult date: 07/07/17 Requesting Physician: Karan Yi - Consult Narrative Reason for consult: Aflutter w/ RVR History of present illness: [employer]: new to Dr. Malik Ms. Merida is a 72 year old female who has a history of COPD, hypertension, NIDDM, depression, trigeminal neuralgia, prior TIA 5 years ago, and pyelonephritis. She has a 1 pack per day smoker and has been smoking for 40 years. She reports she has not routinely followed by [facility] but she was seen by [facility] approximately 15 years ago right before she was diagnosed with trigeminal neuralgia. She did have a normal stress test on 1995. Ms. Merida was transferred to our facility from [facility] in [place], [place] for further evaluation of A. fib/flutter, altered mental status, worsening shortness of breath and edema, and UTI. She was just discharged from [facility] on 07/02/2017 after being treated for pyelonephritis, sepsis, bacteremia, and renal insufficiency. Her grandson is at the bedside and reports that she has been seen 3 times in the past week for UTIs and kidney infections and he states that she has been sick for the last month. She reports she has had some occasional episodes of SOB during the past couple of weeks but remained SOB all day yesterday. She has also noticed some BLE edema. She denies chest pain or palpitations. She states the shortness of breath has no exacerbating or alleviating factors. It lasts anywhere from a few minutes to several hours at a time. She also reports occasional coughing spells. She denies dizziness, lightheadedness, palpitations, nausea, vomiting, or syncope. Upon arrival to our facility, she is noted to be in atrial flutter with rapid ventricular response. She was initially given a Cardizem bolus and placed on Cardizem infusion. She was given IV Lasix for her elevated BNP. She also received Lovenox 70 mg subcutaneous. She has subsequently converted to normal sinus rhythm this morning. She has been started on Toprol-XL 50 mg p.o. daily as well as Eliquis 5 mg p.o. twice daily for anticoagulation due to new onset atrial flutter. Her CHADSVASC score is 6. She is slightly anemic with H&H of 11.2 and 33.4. Her potassium is 3.4 which we will replace. Her creatinine is 0.8, magnesium 2.0. Cardiac enzymes are negative. TSH 0.717. IMPRESSION/PLAN: 1. ATRIAL FLUTTER WITH RVR: Now converted to normal sinus rhythm. Continue beta ever and anticoagualtion with Eliquis. If she has recurrent atrial flutter uncontrolled with medications, ablation may be an option. We will continue with the current therapy. She has been strongly encouraged to stop smoking. 2. COPD EXACERBATION: She has been started on antibiotics and breathing treatments. Hospital medicine following. 3. HYPERTENSION: Has been elevated, now better controlled. Will continue to monitor and adjust accordingly. 4. HYPOKALEMIA: Potassium 3.4. Continue potassium replacement protocol. 5. ACUTE DIASTOLIC CHF: BNP>700 with peripheral edema and posterior crackles. EF 55%. Continue diuresis with Lasix. 6. URINARY TRACT INFECTION: Urine cultures and blood cultures pending. She has been started on IV and PO antibiotics. 7. NIDDM: Hospital medicine following. She has been started on accuchecks and sliding scale insulin. 8. TOBACCO ABUSE: Patient is 1 pack per day smoker despite for the past 4 years. Greater than 10 minutes was spent discussing the need and benefits of tobacco cessation. CC: Charley Pino MD - Home Medications and Allergies Home Medications: Home Medications Medication Instructions Recorded Confirmed Type Aspirin [Ecotrin] 81 mg PO QPM 11/02/16 07/07/17 History Atorvastatin [Lipitor] 10 mg PO QAM 11/02/16 07/07/17 History Benazepril HCl [Lotensin] 20 mg PO QPM 11/02/16 07/07/17 History Duloxetine HCl [Duloxetine] 60 mg PO QAM 11/02/16 07/07/17 History amLODIPine [Norvasc] 10 mg PO QAM 11/02/16 07/07/17 History carBAMazepine TAB [TEGretol TAB] 100 mg PO BID 11/02/16 07/07/17 History metFORMIN [Glucophage] 500 mg PO BID W/MEALS 11/02/16 07/07/17 History Ibuprofen 400 mg PO BID 06/30/17 07/07/17 History cephALEXin [Keflex] 500 mg PO Q8HR #21 capsule 07/02/17 07/07/17 Rx Allergies/Adverse Reactions: Allergies Allergy/AdvReac Type Severity Reaction Status Date / Time Iodinated Contrast Media - Allergy ITCHING Verified 07/07/17 02:11 Oral and [Iodinated Contrast Media - IV Dye] Review of systems: - Constitutional: Present: As per HPI. Absent: anorexia, chills, daytime sleepiness, excessive sweating, fever(s), frequent falls, headache(s), increased appetite, lethargy, malaise, night sweats, stops breathing during sleep, weakness, weight gain, weight loss, fatigue. - EENT Eyes: Present: As per HPI. Absent: blurry vision, diplopia, loss of vision Ears: Present: As per HPI. Absent: decreased hearing, ear discharge, ear pain Nose, mouth and throat: Present: As per HPI. Absent: dysphagia, epistaxis, headache(s), hoarseness, lip swelling, nasal congestion, neck mass, neck pain, sinus pressure, sore throat, throat swelling, tongue swelling, vertigo - Cardiovascular: Present: dyspnea, edema, as per HPI. Absent: chest pain at rest, chest pain with activity, dyspnea on exertion, claudication, diaphoresis, radiating jaw, neck or arm pain, lightheadedness, orthopnea, palpitations, PND - Respiratory: Present: dyspnea, cough, wheezing, as per HPI. Absent: dyspnea on exertion, hemoptysis, snoring, pain on inspiration - Gastrointestinal: Present: As per HPI. Absent: abdominal pain, bloating, change in bowel habits, constipation, diarrhea, heartburn, hematemesis, hematochezia, loose stools, melena, nausea, vomiting - Genitourinary: Present: dysuria, nocturia, urinary frequency, As per HPI. Absent: difficulty urinating, flank pain, hematuria, urinary incontinence - Musculoskeletal: Present: As per HPI. Absent: arthralgias, back pain, joint swelling, limited range of motion, muscle cramps, muscle weakness, myalgias - Neurological: Present: As per HPI. Absent: abnormal gait, abnormal speech, behavioral changes, confusion, convulsions, disequilibrium, dizziness, focal weakness, frequent falls, headache(s), memory loss, numbness, paresthesias, radicular pain, syncope, tremor(s) - Psychiatric: Present: As per HPI. Absent: anxiety, confusion, depression, panic attacks - Endocrine: Present: As per HPI. Absent: cold intolerance, fatigue, heat intolerance, polydipsia, polyphagia - Hematologic/Lymphatic: Present: As per HPI. Absent: easy bleeding, easy bruising, lymphadenopathy Medical,Surgical,& Family Hx - Medical History Cardio: History of: Cerebrovascular Disease, CHF, Hypertension Psychological: History of: Depression (on cymbalta for neuralgia) Neurology: History of: TIA, Neurological Problems (trigeminal neuralgia) No history of: Cerebrovascular Accident HEENT: History of: Eye Problem (wears reading glasses) Endocrine: History of: Diabetes Mellitus (NIDDM), Dyslipidemia Respiratory: History of: COPD, Pneumonia Renal: History of: Renal Problems (PYELONEPHRITIS) Genitourinary: History of: Kidney Stones, Recurring Urinary Tract Infections Gastrointestinal: History of: GI Problems (Constipation) Musculoskeletal: History of: Back/Neck Problems, Musculoskeletal Problems ( osteoarthritis) Hematology: History of: Anemia - Surgical History Abdominal Surgeries: Surgical HX of: Appendectomy, Colonoscopy Reproductive Surgeries: Surgical HX of;: Breast Surgery (breast reduction), Tubal Ligation - Family History Family History: Reports;: Family Cancer (mother - breast CA), Family Heart Disease (father - [place]), Family Hypertension - Social History Smoking Status: Current every day smoker Frequency of Alcohol Use: None Type of Drug Use: None Marital Status: Lives With:: Spouse Functional capacity: independent ambulation Physical Examination Vital Signs Temp Pulse Resp BP Pulse Ox 97 F L 126 H 16 157/90 93 L 07/07/17 01:56 07/07/17 01:56 07/07/17 01:56 07/07/17 01:56 07/07/17 01:56 Exam: General appearance: Appears well. Pleasant and cooperative. Overweight, no acute distress. Head exam: Present: normal inspection, normocephalic, atraumatic. Absent: hematoma, laceration Eye exam: Present: EOMI. Absent: conjunctival injection, nystagmus, periorbital swelling, scleral icterus, laceration to eyelids, jaundice Pupils: Present: PERRL. Absent: constricted, dilated, fixed, irregular, unequal ENT exam: Present: normal exam, normal external ear exam, mucous membranes moist. Neck exam: Present: normal inspection, midline trachea. Absent: masses, lymphadenopathy, tenderness, thyromegaly, carotid bruit Respiratory exam: Present: diffuse expiratory wheezing with posterior crackles bilaterally. Absent: accessory muscle use, chest wall tenderness, rhonchi. Cardiovascular exam: Present: regular rate and rhythm. Absent: gallop, JVD, rubs GI/Abdominal exam: Present: normal bowel sounds, soft. Absent: distended, firm , hernia, mass, tenderness. Extremities exam: Present: Normal Gait, No Clubbing, No Cyanosis, Upper Extr. Pulses 2+, Lower Extr. Pulses 2+, 1+ BLE edema. Capillary refill less than 3 seconds. Musculoskeletal: Present: No Fluid Collection, No Pain, Normal Range of Motion Back exam: Present: normal inspection. Absent: muscle spasm, vertebral tenderness Neurological exam: Present: awake, alert, oriented X3, Moves all extremities well without hemiparesis or paralysis. Grossly intact without resting or essential tremor Psychiatric exam: Present: normal affect, normal mood Skin exam: Present: normal color, warm, dry, intact. Absent: cyanosis, diaphoretic, rash, urticaria Result/EKG - Labs CBC & BMP: 07/07/17 06:45 07/07/17 06:45 Lab Results: I have reviewed the past 24 hour labs Labs: Laboratory Results - last 24 hr 07/07/17 07/07/17 07/07/17 03:55 03:55 06:45 WBC 10.1 RBC 3.57 L Hgb 11.2 L Hct 33.4 L MCV 93.6 MCH 31 MCHC 33.5 RDW 14.9 Plt Count 270 D MPV 10.2 Neut % (Auto) 67.2 Lymph % (Auto) 18.1 L [place] % (Auto) 10.7 Eos % (Auto) 2.5 Baso % (Auto) 0.5 Neut # (Auto) 6.8 Lymph # (Auto) 1.8 [place] # (Auto) 1.1 H Eos # (Auto) 0.3 Baso # (Auto) 0.1 Immature Gran % 1.0 Nucleated RBC % 0.0 Immature Gran # 0.10 Nucleated RBCs # 0.00 Immature Plt Fraction 0.0 Sodium Potassium Chloride Carbon Dioxide Anion Gap BUN Creatinine GFR Calculation BUN/Creatinine Ratio Glucose POC Glucose Calculated Osmolality Calcium Magnesium Total Creatine Kinase 16 L CK-MB (CK-2) 1.1 Troponin I < 0.015 B-Natriuretic Peptide 702 H TSH 3rd Generation 07/07/17 07/07/17 07/07/17 06:45 08:30 11:40 WBC RBC Hgb Hct MCV MCH MCHC RDW Plt Count MPV Neut % (Auto) Lymph % (Auto) [place] % (Auto) Eos % (Auto) Baso % (Auto) Neut # (Auto) Lymph # (Auto) [place] # (Auto) Eos # (Auto) Baso # (Auto) Immature Gran % Nucleated RBC % Immature Gran # Nucleated RBCs # Immature Plt Fraction Sodium 141 Potassium 3.4 L Chloride 105 Carbon Dioxide 29 Anion Gap 10.4 BUN 18 Creatinine 0.80 GFR Calculation 78 BUN/Creatinine Ratio 22.00 H Glucose 118 H POC Glucose 119 H 90 Calculated Osmolality 283.3 Calcium 8.4 L Magnesium 2.0 Total Creatine Kinase CK-MB (CK-2) Troponin I B-Natriuretic Peptide TSH 3rd Generation 0.717 - EKG EKG results: interpreted by me, sinus rhythm
[2017-07-07] MEDS: ALBUTEROL/IPRATROPIUM 3 ML NEB RESP TX SCH ×3 (14:03→22:55)
[2017-07-07] MEDS: metFORMIN 500 MG TABLET PO SCH (16:52)
[2017-07-07] MEDS ORDERED: BENAZEPRIL 10 MG TABLET PO SCH (19:00)
[2017-07-07] MEDS ORDERED: cefTRIAXone 1,000 MG VIAL IM SCH (19:00)
[2017-07-07] MEDS: carBAMazepine 200 MG TABLET PO SCH (22:00)
[2017-07-07] MEDS: METOPROLOL SUCCINATE XL 50 MG TABLET PO SCH (22:01)
[2017-07-07] MEDS: FUROSEMIDE 40 MG TABLET PO SCH (22:02)
[2017-07-08] MEDS: DILTIAZEM INJ 100 MG in SODIUM CHLORIDE 0.9% 100 ML IV SCH (01:33)
[2017-07-08] MEDS: ALBUTEROL/IPRATROPIUM 3 ML NEB RESP TX SCH ×3 (02:41→10:47)
[2017-07-08 04:55] LABS: Basophils % 0.4 % (0.0-0.8); Eosinophils # 0.2 10*3/uL (0.0-0.87); Hematocrit 31.8 VOL% (35.7-47.0); Hemoglobin 10.4 GM/DL (12.0-16.0); Immature Granulocytes % 0.6 %; Immature Granulocytes Absolute 0.06 #; Lymphocytes % 20.8 % (21.3-54.2); Mean Corpuscular HGB Conc 32.7 GM/DL (32-36); Mean Corpuscular Hemoglobin 32 PG (27-34); Mean Corpuscular Volume 96.4 FL (87-102); Mean Platelet Volume 10.5 FL (9.6-12.0); Monocytes # 1.1 10*3/uL (0.11-0.8); Monocytes % 10.9 % (1.7-12.7); Neutrophils # 6.4 10*3/uL (1.4-7.4); Neutrophils % 65.3 % (38.7-73.9); Platelet Count 267 T/CUMM (130-400); Red Cell Distribution Width 15.3 % (9.3-17.3); White Blood Count 9.8 T/CUMM (4-12)
[2017-07-08 05:27] LABS: Albumin 2.4 G/DL (3.4-5.0); Bilirubin,Total 1.3 MG/DL (0.2-1.0); Calcium 8.3 MG/DL (8.5-10.1); Magnesium 1.9 MG/DL (1.8-2.4); Osmolality,Calculated 284.3 MOS/KG (273-304); Potassium 3.9 MMOL/L (3.5-5.1); Total Protein 5.6 G/DL (6.4-8.3)
--- NOTE | 2017-07-08 06:33 | Pulmonology Consult Note ---
Assessment and Plan (1) COPD with acute exacerbation Status: Acute Assessment and plan: The patient comes in with a mild COPD exacerbation and appears to be doing fairly well now. Her lung function is probably worse than she thinks it is and she may need some maintenance medicines. She will continue with some steroids and bronchodilators for now. Current Visit: Yes (2) CHF exacerbation Status: Acute Assessment and plan: She is getting some diuresis and her heart failure is not bad. Current Visit: Yes (3) Juk-rvioahi-lputslron diabetes mellitus without complications Status: Chronic Current Visit: Yes (4) Atrial fibrillation with rapid ventricular response Status: Acute Assessment and plan: She is back in a sinus rhythm now. Current Visit: Yes (5) Pulmonary hypertension Status: Acute Assessment and plan: Her pulmonary hypertension is a secondary pulmonary hypertension and will continue to treat her lungs. Current Visit: Yes History of Present Illness Chief complaint: Shortness of breath History of present illness: Ms. Merida is a 72 year old white female that has a history of having hypertension, diabetes, and likely COPD that is followed by Dr. Avery. She says she has never really had much trouble with her breathing in the past. She says lately she has been treated for urinary tract infections. She says she has had 3 bouts over the past several months. She came to the hospital because she was having a little bit of shortness of breath and chest congestion. She says this is new for her. She has never had to take any breathing medicines in the past. She is a smoker. She was found to have atrial fibrillation and was sent over for monitoring. She was felt to have mild heart failure which is being treated. She says she is not coughing too badly now and feels better. Her echocardiogram shows some pulmonary hypertension but she does have LVH and increased left atrial size. She is not having any chest pain. Home Medications Medication Instructions Recorded Confirmed Type Aspirin [Ecotrin] 81 mg PO QPM 11/02/16 07/07/17 History Atorvastatin [Lipitor] 10 mg PO QAM 11/02/16 07/07/17 History Benazepril HCl [Lotensin] 20 mg PO QPM 11/02/16 07/07/17 History Duloxetine HCl [Duloxetine] 60 mg PO QAM 11/02/16 07/07/17 History amLODIPine [Norvasc] 10 mg PO QAM 11/02/16 07/07/17 History carBAMazepine TAB [TEGretol TAB] 100 mg PO BID 11/02/16 07/07/17 History metFORMIN [Glucophage] 500 mg PO BID W/MEALS 11/02/16 07/07/17 History Ibuprofen 400 mg PO BID 06/30/17 07/07/17 History cephALEXin [Keflex] 500 mg PO Q8HR #21 capsule 07/02/17 07/07/17 Rx Allergies Allergy/AdvReac Type Severity Reaction Status Date / Time Iodinated Contrast Media - Allergy ITCHING Verified 07/07/17 02:11 Oral and [Iodinated Contrast Media - IV Dye] - Constitutional Constitutional: Present: fatigue, weakness. Absent: chills, fever(s), weight gain, weight loss - EENT Eyes: Absent: loss of vision Ears: Absent: decreased hearing Nose, mouth and throat: Present: other (Has a history of trigeminal neuralgia) - Cardiovascular Cardiovascular: Present: dyspnea, edema, palpitations. Absent: chest pain at rest - Respiratory Respiratory: Present: cough, wheezing. Absent: hemoptysis, pain on inspiration , change in phlegm color - Gastrointestinal Gastrointestinal: Absent: abdominal pain, change in bowel habits, dysphagia, nausea, vomiting - Genitourinary Genitourinary: Present: dysuria, hematuria, urinary frequency - Musculoskeletal Musculoskeletal: Absent: arthralgias, muscle weakness - Neurological Neurological: Absent: abnormal speech, focal weakness, paresthesias - Psychiatric Psychiatric: Absent: anxiety Exam (Pulmonay) H&P - Constitutional Vitals: Period Temp Pulse Resp BP Sys/Valdes Pulse Ox Last 24 Hr 97.1 F-97.6 F 72-100 16-23 130-163/70-93 93-100 General appearance: no acute distress (She looks reasonably comfortable at present.), over weight - Head Head exam: Present: normal inspection, normocephalic - Eye Eye exam: Present: EOMI. Absent: scleral icterus Pupils: Present: LINDA - ENT ENT exam: Present: normal exam - Neck Neck exam: Absent: lymphadenopathy, thyromegaly - Respiratory Respiratory exam: Present: rhonchi, wheezes. Absent: accessory muscle use - Cardiovascular Cardiovascular exam: Present: regular rate and rhythm. Absent: gallop, systolic murmur - GI/Abdominal GI/Abdominal exam: Present: normal bowel sounds, soft. Absent: distended, organomegaly, tenderness - Extremities Exam Extremities exam: Present: edema (He does have some leg swelling). Absent: calf tenderness - Neurological Exam Neurological exam: Present: alert, oriented X3, CN II-XII intact - Psychiatric Psychiatric exam: Present: normal affect - Skin Skin exam: Present: warm, dry Medical,Surgical,& Family Hx - Medical History Cardio: History of: Cerebrovascular Disease, CHF, Hypertension Psychological: History of: Depression (on cymbalta for neuralgia) Neurology: History of: TIA, Neurological Problems (trigeminal neuralgia) No history of: Cerebrovascular Accident HEENT: History of: Eye Problem (wears reading glasses) Endocrine: History of: Diabetes Mellitus (NIDDM), Dyslipidemia Respiratory: History of: COPD, Pneumonia Renal: History of: Renal Problems (PYELONEPHRITIS) Genitourinary: History of: Kidney Stones, Recurring Urinary Tract Infections Gastrointestinal: History of: GI Problems (Constipation) Musculoskeletal: History of: Back/Neck Problems, Musculoskeletal Problems ( osteoarthritis) Hematology: History of: Anemia - Surgical History Abdominal Surgeries: Surgical HX of: Appendectomy, Colonoscopy Reproductive Surgeries: Surgical HX of;: Breast Surgery (breast reduction), Tubal Ligation - Family History Family History: Reports;: Family Cancer (mother - breast [place]), Family Heart Disease (father - [place]), Family Hypertension - Social History Smoking Status: Current every day smoker Frequency of Alcohol Use: None Type of Drug Use: None Results - Labs CBC & BMP: 07/08/17 04:17 07/08/17 04:17 - Diagnostic Findings Procedure: Chest x-ray: image reviewed by me, report reviewed by me (Chest x- ray shows cardiomegaly and suggest some COPD changes.)
[2017-07-08] MEDS ORDERED: methylPREDNISolone 4 MG TABLET PO SCH ×2 (07:00→08:00)
[2017-07-08] MEDS: INSULIN LISPRO 100 UNIT/ML SUBCUT SCH (07:38)
--- NOTE | 2017-07-08 08:15 | Cardiology Progress Note ---
Assessment and Plan - Time spent with patient Time spent with patient: Less than 30 minutes (1) Atrial flutter with rapid ventricular response Status: Acute Assessment and plan: See plan of care listed below. Current Visit: Yes (2) COPD with acute exacerbation Status: Acute Assessment and plan: See plan of care listed below. Current Visit: Yes (3) Benign essential hypertension Status: Chronic Assessment and plan: See plan of care listed below. Current Visit: Yes (4) Hypokalemia Status: Acute Assessment and plan: See plan of care listed below. Current Visit: Yes (5) Congestive heart failure (CHF) Status: Acute Assessment and plan: See plan of care listed below. Current Visit: Yes Qualifiers: Congestive heart failure type: diastolic Congestive heart failure chronicity: acute Qualified Code(s): I50.31 - Acute diastolic (congestive) heart failure (6) Urinary tract infection Status: Acute Assessment and plan: See plan of care listed below. Current Visit: No (7) Xpy-ljveqbh-anuonnqwk diabetes mellitus without complications Status: Chronic Assessment and plan: See plan of care listed below. 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 Malik SUMMARY: Ms. Merida is a 72-year-old WF who presented with typical atrial flutter with RVR, and CHF. She has a history of COPD, hypertension, NIDDM, depression, trigeminal neuralgia, prior TIA, and pyelonephritis. She continues to smoke 1 pack per day. Her echocardiogram showed preserved systolic function , left atrial enlargement, severe pulmonary hypertension, diastolic dysfunction. Ms. Merida converted to normal sinus rhythm with Cardizem bolus and infusion. She was started on Eliquis 5 mg p.o. daily for anticoagulation, CHADSVASC 6. 2016: Ms. Merida is overall much improved today. She has had no further episodes of atrial flutter. We increased her Toprol-XL to 50 mg p.o. twice daily. She remains stable today, she can go home and follow-up with Dr. Malik in the clinic in a couple weeks. If she has recurrent issues, she may be a candidate for ablation. Continue to monitor electrolytes and replete as needed. Continue vitamin C 1000 mg p.o. twice daily. IMPRESSION/PLAN: 1. ATRIAL FLUTTER WITH RVR: Now converted to normal sinus rhythm. Continue beta ever and anticoagualtion with Eliquis. If she has recurrent atrial flutter uncontrolled with medications, ablation may be an option. We will continue with the current therapy. She has been strongly encouraged to stop smoking. 2. COPD EXACERBATION: She has been started on antibiotics and breathing treatments. Pulmonology was consulted due to her severe pulmonary hypertension and COPD. 3. HYPERTENSION: Has been elevated, now better controlled. Will continue to monitor and adjust accordingly. 4. HYPOKALEMIA: Potassium 3.9. Continue potassium replacement protocol. 5. ACUTE DIASTOLIC CHF: BNP>700 upon admission. EF 55%. Continue diuresis with Lasix. 6. URINARY TRACT INFECTION: Urine cultures and blood cultures pending. She has been started on IV and PO antibiotics. 7. NIDDM: Hospital medicine following. She has been started on accuchecks and sliding scale insulin. 8. TOBACCO ABUSE: Patient is 1 pack per day smoker despite for the past 4 years. Greater than 10 minutes was spent discussing the need and benefits of tobacco cessation. Exam (Progress Note) - Constitutional Vitals: Period Temp Pulse Resp BP Sys/Valdes Pulse Ox Last 24 Hr 97.1 F 72-98 16-23 132-159/70-93 93-100 Exam: General appearance: Appears well. Pleasant and cooperative. Overweight, no acute distress. Head exam: Present: normal inspection, normocephalic, atraumatic. Absent: hematoma, laceration Eye exam: Present: EOMI. Absent: conjunctival injection, nystagmus, periorbital swelling, scleral icterus, laceration to eyelids, jaundice Pupils: Present: PERRL. Absent: constricted, dilated, fixed, irregular, unequal ENT exam: Present: normal exam, normal external ear exam, mucous membranes moist. Neck exam: Present: normal inspection, midline trachea. Absent: masses, lymphadenopathy, tenderness, thyromegaly, carotid bruit Respiratory exam: Present: expiratory wheezes noted. O2 via NBP. Absent: accessory muscle use, chest wall tenderness. Cardiovascular exam: Present: regular rate and rhythm. Absent: gallop, JVD, rubs GI/Abdominal exam: Present: normal bowel sounds, soft. Absent: distended, firm , hernia, mass, tenderness. Extremities exam: Present: Normal Gait, No Clubbing, No Cyanosis, Upper Extr. Pulses 2+, Lower Extr. Pulses 2+, 1+ BLE edema. Capillary refill less than 3 seconds. Musculoskeletal: Present: No Fluid Collection, No Pain, Normal Range of Motion Back exam: Present: normal inspection. Absent: muscle spasm, vertebral tenderness Neurological exam: Present: awake, alert, oriented X3, Moves all extremities well without hemiparesis or paralysis. Grossly intact without resting or essential tremor Psychiatric exam: Present: normal affect, normal mood Skin exam: Present: normal color, warm, dry, intact. Absent: cyanosis, diaphoretic, rash, urticaria Result/EKG - Labs CBC & BMP: 07/08/17 04:17 07/08/17 04:17 Lab Results: I have reviewed the past 24 hour labs Labs: Laboratory Results - last 24 hr 07/07/17 07/07/17 07/07/17 08:30 11:40 16:31 WBC RBC Hgb Hct MCV MCH MCHC RDW Plt Count MPV Neut % (Auto) Lymph % (Auto) [place] % (Auto) Eos % (Auto) Baso % (Auto) Neut # (Auto) Lymph # (Auto) [place] # (Auto) Eos # (Auto) Baso # (Auto) Immature Gran % Nucleated RBC % Immature Gran # Nucleated RBCs # Immature Plt Fraction Sodium Potassium Chloride Carbon Dioxide Anion Gap BUN Creatinine GFR Calculation BUN/Creatinine Ratio Glucose POC Glucose 119 H 90 128 H Calculated Osmolality Calcium Magnesium Total Bilirubin AST ALT Alkaline Phosphatase Total Protein Albumin Globulin Albumin/Globulin Ratio 07/07/17 07/08/17 07/08/17 22:00 04:17 04:17 WBC 9.8 RBC 3.30 L Hgb 10.4 L Hct 31.8 L MCV 96.4 MCH 32 MCHC 32.7 RDW 15.3 Plt Count 267 MPV 10.5 Neut % (Auto) 65.3 Lymph % (Auto) 20.8 L [place] % (Auto) 10.9 Eos % (Auto) 2.0 Baso % (Auto) 0.4 Neut # (Auto) 6.4 Lymph # (Auto) 2.0 [place] # (Auto) 1.1 H Eos # (Auto) 0.2 Baso # (Auto) 0.0 Immature Gran % 0.6 Nucleated RBC % 0.0 Immature Gran # 0.06 Nucleated RBCs # 0.00 Immature Plt Fraction 0.0 Sodium 141 Potassium 3.9 Chloride 104 Carbon Dioxide 29 Anion Gap 11.9 BUN 20 H Creatinine 1.00 GFR Calculation 60 BUN/Creatinine Ratio 20.00 Glucose 116 H POC Glucose 132 H Calculated Osmolality 284.3 Calcium 8.3 L Magnesium 1.9 Total Bilirubin 1.30 H AST 11 ALT 17 Alkaline Phosphatase 104 Total Protein 5.6 L Albumin 2.4 L Globulin 3.2 Albumin/Globulin Ratio 0.7 L 07/08/17 07:45 WBC RBC Hgb Hct MCV MCH MCHC RDW Plt Count MPV Neut % (Auto) Lymph % (Auto) [place] % (Auto) Eos % (Auto) Baso % (Auto) Neut # (Auto) Lymph # (Auto) [place] # (Auto) Eos # (Auto) Baso # (Auto) Immature Gran % Nucleated RBC % Immature Gran # Nucleated RBCs # Immature Plt Fraction Sodium Potassium Chloride Carbon Dioxide Anion Gap BUN Creatinine GFR Calculation BUN/Creatinine Ratio Glucose POC Glucose 143 H Calculated Osmolality Calcium Magnesium Total Bilirubin AST ALT Alkaline Phosphatase Total Protein Albumin Globulin Albumin/Globulin Ratio - EKG EKG results: interpreted by me, sinus rhythm Specialty Discharge - Follow Up or Referrals Follow up with: Shahzad Malik MD [Physician] - 2 Weeks
[2017-07-08] MEDS: AZITHROMYCIN 250 MG TABLET PO SCH (08:46)
[2017-07-08] MEDS: ASPIRIN EC 81 MG TABLET PO SCH (08:46)
[2017-07-08] MEDS: POTASSIUM CHLORIDE 20 MEQ TABLET PO SCH (08:46)
[2017-07-08] MEDS: APIXABAN 5 MG TABLET PO SCH (08:46)
[2017-07-08] MEDS: PANTOPRAZOLE 40 MG TABLET PO SCH (08:47)
[2017-07-08] MEDS: ATORVASTATIN 10 MG TABLET PO SCH (08:47)
[2017-07-08] MEDS: metFORMIN 500 MG TABLET PO SCH (08:47)
[2017-07-08] MEDS: METOPROLOL SUCCINATE XL 50 MG TABLET PO SCH (08:47)
[2017-07-08] MEDS: DULoxetine 30 MG CAPSULE PO SCH (08:47)
[2017-07-08] MEDS: FUROSEMIDE 40 MG TABLET PO SCH (08:48)
[2017-07-08] MEDS: NICOTINE 21 MG/24 HR PATCH TRANSDERM SCH (08:48)
[2017-07-08] MEDS ORDERED: FUROSEMIDE 40 MG TABLET PO SCH (09:00)
[2017-07-08] MEDS: LEVOFLOXACIN 500 MG TABLET PO SCH (09:15)
[2017-07-08] MEDS: carBAMazepine 200 MG TABLET PO SCH (09:20)
[2017-07-08] MEDS: ASCORBIC ACID 500 MG TABLET PO SCH (09:21)
[2017-07-08] MEDS: cefTRIAXone 2,000 MG in SODIUM CHLORIDE 0.9% 100 ML IV SCH (09:22)
--- NOTE | 2017-07-08 09:43 | Discharge Summary ---
Hospital Course - Hospital Course Hospital Course: Ms. Merida is a 72 year old female with past medical history significant for COPD, CHF, HTN, TIA, NIDDM, Depression, Trigeminal neuralgia, returns to ER today for palpitations. Patient was noted to be in A. fib with rapid ventricular response. She was started on a Cardizem drip and started on oral metoprolol XL. Dr. Hsu has seen her. Echocardiogram revealed normal EF of 55 % with a PA P of 75. Her mitral valve is leaky and will eventually need to be replaced. Dr. Avery is her primary care doctor in can work that up further with the assistance of Dr. Hsu. We have counseled her on stop smoking. She does have COPD which is stable. I did put her on Spiriva and albuterol to go home on but not sure she will take it. I also gave her a Medrol Dosepak for some wheezing and Levaquin as she was being treated for a UTI prior to arrival. We have started her on Eliquis for blood thinner. Dr. Malik feels that she needs diuretics so she was being treated for acute diastolic congestive heart failure exacerbation most likely due to your bad mitral valve. Patient will soon develop right-sided heart failure secondary to her pulmonary hypertension. Patient is mildly anemic but is stable. Discharge home today with follow-up with Dr. Avery, Dr. Malik and Dr. Jarvis - Time spent with patient Time with patient DS: Less than 30 minutes (25 min) Diagnosis - Discharge Diagnosis (1) Atrial fibrillation with rapid ventricular response Status: Acute (2) COPD exacerbation Status: Resolved (3) CHF exacerbation Status: Acute (4) Benign essential hypertension Status: Chronic (5) Bai-maxenxk-vohphzmya diabetes mellitus without complications Status: Chronic (6) Pulmonary hypertension Status: Acute Specialty Discharge - Follow Up or Referrals Follow up with: Shahzad Malik MD [Physician] - 2 Weeks Discharge Plan - Discharge Data Disposition: Disch To Home/Self Care Condition at Discharge: Stable Discharge Diet: heart healthy Activity: resume usual activities as tolerated Hygiene: no restrictions Weight Bearing at Discharge: full weight bearing - Discharge Medications New Albuterol Sulfate [Proair HFA] 2 puff INH Q4H PRN #1 inhaler PRN Reason: Shortness Of Breath/Wheezing Apixaban [Eliquis] 5 mg PO BID #60 tablet Ascorbic Acid Tab [Vitamin C Tab] 1,000 mg PO BID tablet Aspirin EC Tab 81 mg PO DAILY tablet Levofloxacin Tab [Levaquin Tab] 500 mg PO DAILY #7 tablet methylPREDNISolone DOSEPAK [Medrol Dosepak] 4 mg PO DIRECTED #1 pack Metoprolol Succinate Xl [Toprol Xl] 50 mg PO BID #60 tablet Potassium Chloride Cap/Tab [K Dur] 20 meq PO DAILY #30 tablet Furosemide Tab [Lasix Tab] 40 mg PO BID #60 tablet Tiotropium Inhalation [Spiriva Handihaler] 18 mcg INH DAILY #1 box Continue carBAMazepine TAB [TEGretol TAB] 100 mg PO BID Benazepril HCl [Lotensin] 20 mg PO QPM metFORMIN [Glucophage] 500 mg PO BID W/MEALS Atorvastatin [Lipitor] 10 mg PO QAM #30 tablet Aspirin [Ecotrin] 81 mg PO QPM Duloxetine HCl [Duloxetine] 60 mg PO QAM Discontinued amLODIPine [Norvasc] 10 mg PO QAM Ibuprofen 400 mg PO BID cephALEXin [Keflex] 500 mg PO Q8HR #21 capsule - Follow Up or Referral Follow Up: Shahzad Malik MD [Physician] - 2 Weeks Ruel Jarvis MD [Physician] - 2 Weeks Evangelist Avery MD [Physician] - 1 Week - Forms/Instructions Exam - Constitutional Vitals: Period Temp Pulse Resp BP Sys/Valdes Pulse Ox Last 24 Hr 97.1 F 71-96 16-23 132-159/71-93 93-100 General appearance: normal weight, no acute distress - Respiratory Respiratory exam: Present: decreased breath sounds, wheezes - Cardiovascular Cardiovascular exam: Present: regular rate and rhythm. Absent: systolic murmur - GI/Abdominal GI/Abdominal exam: Present: normal bowel sounds, soft. Absent: tenderness - Extremities Exam Extremities exam: Present: normal inspection, normal capillary refill Discharge Results Procedures and tests throughout hospitalization: Pending Orders 07/07/17 Urine Culture Stat 07/07/17 06:45 Blood Culture Routine Labs on day of discharge: Labs from last 24 hours 07/08/17 07/08/17 07/08/17 07:45 04:17 04:17 WBC 9.8 RBC 3.30 L Hgb 10.4 L Hct 31.8 L MCV 96.4 MCH 32 MCHC 32.7 RDW 15.3 Plt Count 267 MPV 10.5 Neut % (Auto) 65.3 Lymph % (Auto) 20.8 L [place] % (Auto) 10.9 Eos % (Auto) 2.0 Baso % (Auto) 0.4 Neut # (Auto) 6.4 Lymph # (Auto) 2.0 [place] # (Auto) 1.1 H Eos # (Auto) 0.2 Baso # (Auto) 0.0 Immature Gran % 0.6 Nucleated RBC % 0.0 Immature Gran # 0.06 Nucleated RBCs # 0.00 Immature Plt Fraction 0.0 Sodium 141 Potassium 3.9 Chloride 104 Carbon Dioxide 29 Anion Gap 11.9 BUN 20 H Creatinine 1.00 GFR Calculation 60 BUN/Creatinine Ratio 20.00 Glucose 116 H POC Glucose 143 H Calculated Osmolality 284.3 Calcium 8.3 L Magnesium 1.9 Total Bilirubin 1.30 H AST 11 ALT 17 Alkaline Phosphatase 104 Total Protein 5.6 L Albumin 2.4 L Globulin 3.2 Albumin/Globulin Ratio 0.7 L 07/07/17 07/07/17 07/07/17 22:00 16:31 11:40 WBC RBC Hgb Hct MCV MCH MCHC RDW Plt Count MPV Neut % (Auto) Lymph % (Auto) [place] % (Auto) Eos % (Auto) Baso % (Auto) Neut # (Auto) Lymph # (Auto) [place] # (Auto) Eos # (Auto) Baso # (Auto) Immature Gran % Nucleated RBC % Immature Gran # Nucleated RBCs # Immature Plt Fraction Sodium Potassium Chloride Carbon Dioxide Anion Gap BUN Creatinine GFR Calculation BUN/Creatinine Ratio Glucose POC Glucose 132 H 128 H 90 Calculated Osmolality Calcium Magnesium Total Bilirubin AST ALT Alkaline Phosphatase Total Protein Albumin Globulin Albumin/Globulin Ratio Preliminary micro results at discharge 07/07/17 06:45 Blood Culture - Preliminary Blood No growth at 1 day 07/07/17 06:45 Blood Culture - Preliminary Blood No growth at 1 day DS: Provider Date of admission: 07/07/17 04:46 Primary care physician: . No PCP Attending physician on admission: Magno Tang MD Consults: 07/07/17 04:45 Consult to Physician [CONS] Routine Comment: New Onset of Atrial Fibrillation Consulting Provider: Luigi Galvin Consult to Specialist Group: Cardiology 07/07/17 06:10 Consult to Pastoral Services [CONS] Routine Comment: Pastoral Screen: Request Gemologist Visit Pastoral Screen Source of Request: Patient 07/07/17 12:39 Consult to Physician [CONS] Routine Comment: COPD, severe pulmonary hypertension Consulting Provider: Consult to Specialist Group: Pulmonology When should Consulting Provider be notified: Now Discharging clinician: Charley Pino MD
[2017-07-08 09:44] VITALS: BP 151/76
== END 2017-07-08 11:20 | disposition home or self-care (01) | DRG 308 ==
LOC: EDBD → EDUNIT# → N.ED 01:54 → SUATTDRO 04:46 → N.EDINP 04:46 → N.CC 05:15
PROVIDERS: ADMIT Internal Medicine; ATTEND Internal Medicine

== ENCOUNTER 2017-09-18 09:52 | Observation (INO) ==
[2017-09-18 11:38] LABS: Basophils # 0.1 10*3/uL (0.0-0.2); Basophils % 0.9 % (0.0-0.8); Eosinophils # 0.2 10*3/uL (0.0-0.87); Eosinophils % 2.2 % (0.00-10.9); Hematocrit 35.1 VOL% (35.7-47.0); Hemoglobin 11.3 GM/DL (12.0-16.0); Immature Granulocytes % 0.2 %; Immature Granulocytes Absolute 0.02 #; Lymphocytes # 1.7 10*3/uL (1.4-4.0); Lymphocytes % 20.7 % (21.3-54.2); Mean Corpuscular HGB Conc 32.2 GM/DL (32-36); Mean Corpuscular Hemoglobin 31 PG (27-34); Mean Corpuscular Volume 94.9 FL (87-102); Mean Platelet Volume 9.1 FL (9.6-12.0); Monocytes # 0.7 10*3/uL (0.11-0.8); Monocytes % 8.7 % (1.7-12.7); Neutrophils # 5.5 10*3/uL (1.4-7.4); Neutrophils % 67.3 % (38.7-73.9); Platelet Count 306 T/CUMM (130-400); Red Cell Distribution Width 15.2 % (9.3-17.3); White Blood Count 8.2 T/CUMM (4-12)
[2017-09-18] MEDS ORDERED: FUROSEMIDE 40 MG/4 ML VIAL IV STA (11:39)
[2017-09-18 11:46] LABS: PT Patient Result 10.6 SECS; Partial Thromboplastin Time 37.5 SECS (0-40)
[2017-09-18] MEDS ORDERED: FUROSEMIDE 40 MG/4 ML VIAL ONE (12:19)
[2017-09-18 12:22] LABS: Alanine Aminotransferase 18 U/L (13-56); Albumin 2.7 G/DL (3.4-5.0); Alkaline Phosphatase 87 U/L (45-117); Aspartate Amino Transferase 16 U/L (0-37); Bilirubin,Total < 0.39 MG/DL (0.2-1.0); Blood Urea Nitrogen 12 MG/DL (7-18); Calcium 8.9 MG/DL (8.5-10.1); Glucose 97 MG/DL (74-106); Osmolality,Calculated 278.4 MOS/KG (273-304); Potassium 3.4 MMOL/L (3.5-5.1); Sodium 140 MMOL/L (136-145); Total Protein 6.5 G/DL (6.4-8.3); Troponin I Only < 0.015 NG/ML (0.00-0.045)
[2017-09-18] MEDS ORDERED: hydrALAZINE 20 MG/1 ML VIAL IV STA (13:10)
[2017-09-18] MEDS ORDERED: hydrALAZINE 20 MG/1 ML VIAL ONE (13:11)
[2017-09-18] MEDS ORDERED: GLUCAGON 1 MG VIAL IM PRN (14:36)
[2017-09-18] MEDS ORDERED: ACETAMINOPHEN 325 MG TABLET PO PRN (14:36)
[2017-09-18] MEDS ORDERED: DEXTROSE 50% 25 GM/50 ML VIAL IV PRN (14:36)
[2017-09-18] MEDS ORDERED: ALBUTEROL/IPRATROPIUM 3 ML NEB RESP TX PRN (15:23)
[2017-09-18] MEDS: FUROSEMIDE 40 MG/4 ML VIAL IV SCH (16:11)
[2017-09-18] MEDS: INSULIN LISPRO 100 UNIT/ML SUBCUT SCH ×2 (16:11→21:53)
[2017-09-18] MEDS: PANTOPRAZOLE 40 MG TABLET PO SCH (16:11)
[2017-09-18] MEDS: POTASSIUM CHLORIDE 20 MEQ TABLET PO SCH (16:11)
[2017-09-18] MEDS: NICOTINE 21 MG/24 HR PATCH TRANSDERM SCH (16:12)
[2017-09-18] MEDS ORDERED: metFORMIN 500 MG TABLET PO SCH (17:00)
[2017-09-18] MEDS ORDERED: BENAZEPRIL 10 MG TABLET PO SCH (19:00)
[2017-09-18] MEDS ORDERED: ASPIRIN EC 81 MG TABLET PO SCH (19:00)
[2017-09-18] MEDS: POTASSIUM CHLORIDE 20 MEQ TABLET PO PRN ×2 (20:22→22:30)
[2017-09-18] MEDS: METOPROLOL SUCCINATE XL 50 MG TABLET PO SCH (20:22)
[2017-09-18] MEDS: APIXABAN 5 MG TABLET PO SCH (20:22)
[2017-09-18] MEDS: carBAMazepine 200 MG TABLET PO SCH (22:32)
[2017-09-19] MEDS: POTASSIUM CHLORIDE 20 MEQ TABLET PO PRN (01:38)
[2017-09-19 06:45] LABS: Basophils % 0.4 % (0.0-0.8); Eosinophils # 0.2 10*3/uL (0.0-0.87); Eosinophils % 2.1 % (0.00-10.9); Hematocrit 34.5 VOL% (35.7-47.0); Hemoglobin 11.1 GM/DL (12.0-16.0); Immature Granulocytes % 0.3 %; Immature Granulocytes Absolute 0.03 #; Lymphocytes % 21.9 % (21.3-54.2); Mean Corpuscular HGB Conc 32.2 GM/DL (32-36); Mean Corpuscular Hemoglobin 31 PG (27-34); Mean Corpuscular Volume 96.1 FL (87-102); Mean Platelet Volume 9.4 FL (9.6-12.0); Monocytes # 0.7 10*3/uL (0.11-0.8); Monocytes % 7.7 % (1.7-12.7); Neutrophils # 6.1 10*3/uL (1.4-7.4); Neutrophils % 67.6 % (38.7-73.9); Platelet Count 295 T/CUMM (130-400); Red Blood Count 3.59 MC/CUMM (3.8-5.5); Red Cell Distribution Width 15.6 % (9.3-17.3)
[2017-09-19 07:17] LABS: Calcium 8.7 MG/DL (8.5-10.1); Osmolality,Calculated 275.7 MOS/KG (273-304); Potassium 4.8 MMOL/L (3.5-5.1)
[2017-09-19] MEDS: INSULIN LISPRO 100 UNIT/ML SUBCUT SCH ×2 (08:34→13:28)
[2017-09-19] MEDS: APIXABAN 5 MG TABLET PO SCH (08:37)
[2017-09-19] MEDS: carBAMazepine 200 MG TABLET PO SCH (08:38)
[2017-09-19] MEDS: NICOTINE 21 MG/24 HR PATCH TRANSDERM SCH (08:38)
[2017-09-19] MEDS: METOPROLOL SUCCINATE XL 50 MG TABLET PO SCH (08:39)
[2017-09-19] MEDS: PANTOPRAZOLE 40 MG TABLET PO SCH (09:00)
[2017-09-19] MEDS: POTASSIUM CHLORIDE 20 MEQ TABLET PO SCH (09:00)
[2017-09-19] MEDS ORDERED: ATORVASTATIN 10 MG TABLET PO SCH (09:00)
[2017-09-19] MEDS: FUROSEMIDE 40 MG/4 ML VIAL IV SCH ×2 (09:01→15:56)
[2017-09-19 12:05] VITALS: BP 139/67
== END 2017-09-19 16:30 | disposition home or self-care (01) | DRG 292 ==
LOC: N.ED 09:52 → N.EDINP 12:42 → INTOOBSV 12:42 → SUATTDRO 12:42 → N.EDINP 14:02 → N.5E 14:26
PROVIDERS: ADMIT Internal Medicine; ATTEND Internal Medicine

== ENCOUNTER 2021-08-30 13:49 | Inpatient (IN) ==
[2021-08-30 14:58] LABS: Basophils # 0.1 10*3/uL (0.0-0.2); Basophils % 0.8 % (0.0-0.8); Eosinophils # 0.1 10*3/uL (0.0-0.87); Eosinophils % 0.8 % (0.00-10.9); Hematocrit 46.7 VOL% (35.7-47.0); Immature Granulocytes % 0.3 %; Immature Granulocytes Absolute 0.02 #; Lymphocytes # 1.6 10*3/uL (1.4-4.0); Lymphocytes % 20.6 % (21.3-54.2); Mean Corpuscular HGB Conc 29.6 GM/DL (32-36); Mean Corpuscular Volume 95.7 FL (87-102); Mean Platelet Volume 9.6 FL (9.6-12.0); Monocytes % 8.7 % (1.7-12.7); Neutrophils % 68.8 % (38.7-73.9); Platelet Count 269 T/CUMM (130-400); Red Blood Count 4.88 MC/CUMM (3.8-5.5); White Blood Count 7.8 T/CUMM (4-12)
[2021-08-30 15:01] LABS: Hemoglobin 13.8 GM/DL (12.0-16.0)
[2021-08-30 15:27] LABS: Bilirubin,Urine Negative (Negative); Blood, Urine Negative (Negative); Glucose,Urine (UA) Negative (Negative); Hyaline Casts,Urine 3 /LPF (0-3); Ketones,Urine Negative (Negative); Mucus,Urine Occasional /LPF (Occasional); Nitrite,Urine Negative (Negative); Protein,Urine Negative; RBC,Urine 1 /HPF (0-4); Squamous Epithelial Cell,Urine Occasional /HPF (0-10); Urine Appearance CLEAR (Clear); Urine Color Yellow (Yellow); Urine Specific Gravity 1.011 (1.001-1.035); Urine Urobilinogen < 2.0 EU/DL (0.2-1.0)
[2021-08-30] MEDS ORDERED: SODIUM CHLORIDE 0.9% 1,000 ML IV STA (15:33)
[2021-08-30 15:39] LABS: Alanine Aminotransferase 14 U/L (13-56); Albumin 2.7 G/DL (3.4-5.0); Alkaline Phosphatase 112 U/L (45-117); Aspartate Amino Transferase 14 U/L (0-37); Bilirubin,Total < 0.39 MG/DL (0.20-1.00); Blood Urea Nitrogen 21 MG/DL (7-18); Calcium 8.6 MG/DL (8.5-10.1); Carbon Dioxide 30 MMOL/L (21-32); Estimated Glom Filtration Rate 45 ML/MIN; Glucose 113 MG/DL (74-106); Potassium 4.1 MMOL/L (3.5-5.1); Sodium 136 MMOL/L (136-145); Total Protein 7.5 G/DL (6.4-8.2)
[2021-08-30] MEDS ORDERED: ALBUTEROL/IPRATROPIUM 3 ML NEB RESP TX STA (15:47)
[2021-08-30 15:50] LABS: Barbiturates Screen,Urine Negative (Negative); Benzodiazepines Screen,Urine Negative (Negative); Cannabinoid Screen,Urine Negative (Negative); Opiate Screen,Urine Positive (Negative); Phencyclidine Screen,Urine Negative (Negative)
[2021-08-30] MEDS ORDERED: ALUMINUM/MAGNES/SIMETH MAX STR 30 ML UDCUP PO PRN (16:58)
[2021-08-30] MEDS ORDERED: NICOTINE 21 MG/24 HR PATCH TRANSDERM PRN (16:58)
[2021-08-30] MEDS ORDERED: DOCUSATE SODIUM 100 MG CAPSULE PO PRN (16:58)
[2021-08-30] MEDS ORDERED: hydrALAZINE 20 MG/1 ML VIAL IV PRN (16:58)
[2021-08-30] MEDS ORDERED: ALBUTEROL 2.5 MG/3 ML NEB RESP TX PRN (16:58)
[2021-08-30] MEDS ORDERED: LACTULOSE 20 GM/30 ML UDCUP PO PRN (16:58)
[2021-08-30] MEDS ORDERED: GLUCAGON 1 MG VIAL IM PRN (16:58)
[2021-08-30] MEDS ORDERED: SIMETHICONE CHEW 125 MG TABLET PO PRN (16:58)
[2021-08-30] MEDS ORDERED: ACETAMINOPHEN 325 MG TABLET PO PRN (16:58)
[2021-08-30] MEDS ORDERED: ONDANSETRON 4 MG/2 ML VIAL IV PRN (16:58)
[2021-08-30] MEDS ORDERED: DEXTROSE 50% 25 GM/50 ML VIAL IV PRN (16:58)
[2021-08-30] MEDS: VANCOMYCIN INJ 1,000 MG in SODIUM CHLORIDE 0.9% 250 ML IV SCH (18:16)
[2021-08-30] MEDS: methylPREDNISolone SOD SUC 125 MG/2 ML VIAL IV SCH (18:16)
[2021-08-30] MEDS: ALBUTEROL/IPRATROPIUM 3 ML NEB RESP TX SCH (19:40)
[2021-08-30] MEDS ORDERED: LEVOFLOXACIN INJ 500 MG/100 ML PREMIX IV ONE (20:00)
[2021-08-30] MEDS: traMADol 50 MG TABLET PO PRN (22:18)
[2021-08-30] MEDS ORDERED: TEMAZEPAM 15 MG CAPSULE PO ONE (22:57)
[2021-08-31] MEDS: APIXABAN 5 MG TABLET PO SCH ×3 (00:08→20:42)
[2021-08-31] MEDS: METOPROLOL TARTRATE 50 MG TABLET PO SCH ×3 (00:08→20:41)
[2021-08-31] MEDS: ALBUTEROL/IPRATROPIUM 3 ML NEB RESP TX SCH ×4 (01:11→19:17)
[2021-08-31] MEDS: methylPREDNISolone SOD SUC 125 MG/2 ML VIAL IV SCH ×2 (01:21→09:37)
[2021-08-31 06:16] LABS: Hematocrit 45.2 VOL% (35.7-47.0); Hemoglobin 13.1 GM/DL (12.0-16.0); Immature Granulocytes % 0.4 %; Immature Granulocytes Absolute 0.02 #; Lymphocytes # 0.5 10*3/uL (1.4-4.0); Lymphocytes % 9.4 % (21.3-54.2); Mean Corpuscular Volume 96.4 FL (87-102); Monocytes % 1.6 % (1.7-12.7); Neutrophils % 88.6 % (38.7-73.9); Platelet Count 273 T/CUMM (130-400); Red Blood Count 4.69 MC/CUMM (3.8-5.5)
[2021-08-31 06:34] LABS: Calcium 8.7 MG/DL (8.5-10.1); Osmolality,Calculated 277.8 MOS/KG (273-304); Potassium 4.4 MMOL/L (3.5-5.1)
[2021-08-31 06:40] LABS: Risk Ratio 2.02; VLDL Cholesterol 12.2 MG/DL
[2021-08-31] MEDS: PANTOPRAZOLE 40 MG TABLET PO SCH (09:36)
[2021-08-31] MEDS ORDERED: TEMAZEPAM 15 MG CAPSULE PO PRN (13:17)
[2021-08-31] MEDS ORDERED: FUROSEMIDE 40 MG/4 ML VIAL IV ONE (14:05)
[2021-08-31] MEDS: methylPREDNISolone SOD SUC 40 MG/1 ML VIAL IV SCH (18:09)
[2021-08-31] MEDS: VANCOMYCIN INJ 1,000 MG in SODIUM CHLORIDE 0.9% 250 ML IV SCH (18:09)
[2021-08-31] MEDS: COLLAGENASE OINT 30 GM TUBE TOP SCH (18:10)
[2021-08-31] MEDS ORDERED: LEVOFLOXACIN INJ 250 MG/50 ML PREMIX IV SCH (20:00)
[2021-08-31] MEDS: LEVOFLOXACIN INJ 750 MG/150 ML PREMIX IV SCH (20:41)
[2021-08-31] MEDS ORDERED: AMITRIPTYLINE 25 MG TABLET PO SCH (21:00)
[2021-08-31] MEDS: traMADol 50 MG TABLET PO PRN (21:34)
[2021-09-01] MEDS: ALBUTEROL/IPRATROPIUM 3 ML NEB RESP TX SCH ×4 (00:55→20:06)
[2021-09-01] MEDS: methylPREDNISolone SOD SUC 40 MG/1 ML VIAL IV SCH ×4 (03:30→23:44)
[2021-09-01 05:50] LABS: Calcium 9.1 MG/DL (8.5-10.1); Osmolality,Calculated 278.7 MOS/KG (273-304); Potassium 5.2 MMOL/L (3.5-5.1)
[2021-09-01 06:11] LABS: Hematocrit 42.4 VOL% (35.7-47.0); Immature Granulocytes % 0.7 %; Immature Granulocytes Absolute 0.06 #; Lymphocytes # 0.7 10*3/uL (1.4-4.0); Lymphocytes % 8.2 % (21.3-54.2); Mean Corpuscular HGB Conc 30.4 GM/DL (32-36); Mean Corpuscular Volume 95.5 FL (87-102); Mean Platelet Volume 9.8 FL (9.6-12.0); Monocytes % 5.9 % (1.7-12.7); Neutrophils % 85.2 % (38.7-73.9); Platelet Count 255 T/CUMM (130-400); Red Blood Count 4.44 MC/CUMM (3.8-5.5); Red Cell Distribution Width 18.9 % (9.3-17.3); White Blood Count 8.2 T/CUMM (4-12)
[2021-09-01 06:12] LABS: Hemoglobin 12.9 GM/DL (12.0-16.0)
[2021-09-01] MEDS: COLLAGENASE OINT 30 GM TUBE TOP SCH (08:22)
[2021-09-01] MEDS: METOPROLOL TARTRATE 50 MG TABLET PO SCH ×2 (08:23→21:53)
[2021-09-01] MEDS: PANTOPRAZOLE 40 MG TABLET PO SCH (08:24)
[2021-09-01] MEDS: APIXABAN 5 MG TABLET PO SCH (08:24)
[2021-09-01] MEDS ORDERED: SODIUM ZIRCONIUM CYCLOSILICATE 10 GM PACK PO ONE (09:00)
[2021-09-01] MEDS ORDERED: MIDAZOLAM 2 MG/2 ML VIAL IV ONE (09:36)
[2021-09-01] MEDS ORDERED: fentaNYL 100 MCG/2 ML VIAL IV ONE (09:36)
[2021-09-01 10:05] LABS: INR 1.2
[2021-09-01] MEDS ORDERED: HEPARIN 5,000 UNIT/1 ML VIAL ONE ×2 (10:26→15:18)
[2021-09-01] MEDS ORDERED: HEPARIN/NACL 0.9% 2 UNITS/ML 4,000 UNIT/2,000 ML BAG IV ONE (10:27)
[2021-09-01] MEDS ORDERED: LABETALOL 20 MG/4 ML SYRINGE IV ONE (11:25)
[2021-09-01] MEDS ORDERED: HEPARIN DRIP 25,000 UNITS/500 ML PREMIX IV SCH (13:00)
[2021-09-01] MEDS ORDERED: ASPIRIN 325 MG TABLET ONE (13:00)
[2021-09-01] MEDS ORDERED: NITROGLYCERIN SL 0.4 MG TABLET SL ONE (13:01)
[2021-09-01] MEDS ORDERED: MORPHINE 2 MG/1 ML SYRINGE IV PRN (13:02)
[2021-09-01] MEDS ORDERED: ASPIRIN CHEW 81 MG TABLET PO ONE (13:02)
[2021-09-01] MEDS ORDERED: MORPHINE 2 MG/1 ML SYRINGE ONE (13:02)
[2021-09-01] MEDS: NITROGLYCERIN SL 0.4 MG TABLET SL PRN ×3 (13:03→13:13)
[2021-09-01] MEDS: SODIUM CHLORIDE 0.45% 1,000 ML IV SCH (13:27)
[2021-09-01 14:06] LABS: Calcium 9.2 MG/DL (8.5-10.1); Osmolality,Calculated 277.8 MOS/KG (273-304); Potassium 4.3 MMOL/L (3.5-5.1)
[2021-09-01] MEDS ORDERED: fentaNYL 100 MCG/2 ML VIAL ONE (14:42)
[2021-09-01] MEDS ORDERED: LIDOCAINE 2% 5 ML VIAL ONE (14:54)
[2021-09-01] MEDS ORDERED: propofoL 200 MG/20 ML VIAL IV ONE (14:54)
[2021-09-01] MEDS ORDERED: ROCURONIUM 50 MG/5 ML VIAL IV ONE (14:54)
[2021-09-01] MEDS ORDERED: DEXAMETHASONE 4 MG/1 ML VIAL ONE (14:55)
[2021-09-01] MEDS ORDERED: ONDANSETRON 4 MG/2 ML VIAL ONE (14:55)
[2021-09-01] MEDS ORDERED: SEVOFLURANE 1 UNIT/15 MINUTE INH ONE ×5 (14:59→17:05)
[2021-09-01] MEDS ORDERED: AMITRIPTYLINE 50 MG TABLET PO PRN (16:00)
[2021-09-01] MEDS ORDERED: PHENYLEPHRINE 10 MG/1 ML VIAL IV ONE (16:17)
[2021-09-01] MEDS ORDERED: HEPARIN 10,000 UNIT/10 ML VIAL ONE (16:25)
[2021-09-01] MEDS ORDERED: NEOSTIGMINE 10 MG/10 ML VIAL ONE (17:04)
[2021-09-01] MEDS ORDERED: GLYCOPYRROLATE 0.4 MG/2 ML VIAL ONE (17:04)
[2021-09-01] MEDS ORDERED: PROTAMINE SULFATE 50 MG/5 ML VIAL IV ONE (17:04)
[2021-09-01] MEDS ORDERED: FUROSEMIDE 20 MG/2 ML VIAL ONE (17:13)
[2021-09-01] MEDS ORDERED: SUGAMMADEX 200 MG/2 ML VIAL IV ONE (17:40)
[2021-09-01] MEDS: VANCOMYCIN INJ 1,000 MG in SODIUM CHLORIDE 0.9% 250 ML IV SCH (18:54)
[2021-09-01] MEDS: LEVOFLOXACIN INJ 750 MG/150 ML PREMIX IV SCH (20:39)
[2021-09-01] MEDS ORDERED: DULoxetine 30 MG CAPSULE PO SCH (21:00)
[2021-09-01] MEDS: GABAPENTIN 300 MG CAPSULE PO SCH (21:53)
[2021-09-01] MEDS: ASPIRIN EC 81 MG TABLET PO SCH (21:53)
[2021-09-01] MEDS: ATORVASTATIN 10 MG TABLET PO SCH (21:53)
[2021-09-02] MEDS: ALBUTEROL/IPRATROPIUM 3 ML NEB RESP TX SCH ×4 (00:45→19:15)
[2021-09-02 05:46] LABS: Basophils % 0.1 % (0.0-0.8); Hematocrit 39.8 VOL% (35.7-47.0); Immature Granulocytes % 1.1 %; Immature Granulocytes Absolute 0.11 #; Lymphocytes # 0.3 10*3/uL (1.4-4.0); Lymphocytes % 3.2 % (21.3-54.2); Mean Corpuscular HGB Conc 30.2 GM/DL (32-36); Mean Corpuscular Volume 98.8 FL (87-102); Mean Platelet Volume 10.4 FL (9.6-12.0); Monocytes % 4.8 % (1.7-12.7); NRBC # 0.02 10*3/uL; Neutrophils % 90.8 % (38.7-73.9); Platelet Count 201 T/CUMM (130-400); Red Blood Count 4.03 MC/CUMM (3.8-5.5); Red Cell Distribution Width 19.2 % (9.3-17.3); White Blood Count 10.2 T/CUMM (4-12)
[2021-09-02 06:03] LABS: Calcium 8.7 MG/DL (8.5-10.1); Osmolality,Calculated 286.3 MOS/KG (273-304); Potassium 4.9 MMOL/L (3.5-5.1)
[2021-09-02 06:11] LABS: Hypochromasia Slight; Lymphocytes 4 % (20-55); Microcytosis Slight; Platelet Estimate Adequate; Segmented Neutrophils 91 % (50-85); Total Cells Counted 100
[2021-09-02] MEDS: PANTOPRAZOLE 40 MG TABLET PO SCH (10:00)
[2021-09-02] MEDS: GABAPENTIN 300 MG CAPSULE PO SCH ×3 (10:00→21:07)
[2021-09-02] MEDS: METOPROLOL TARTRATE 50 MG TABLET PO SCH ×2 (10:00→23:05)
[2021-09-02] MEDS: CYANOCOBALAMIN 500 MCG TABLET PO SCH (10:01)
[2021-09-02] MEDS: ASCORBIC ACID 500 MG TABLET PO SCH (10:01)
[2021-09-02] MEDS: APIXABAN 5 MG TABLET PO SCH ×2 (10:01→21:07)
[2021-09-02] MEDS: methylPREDNISolone SOD SUC 40 MG/1 ML VIAL IV SCH ×3 (10:03→23:51)
[2021-09-02] MEDS: COLLAGENASE OINT 30 GM TUBE TOP SCH (10:04)
[2021-09-02] MEDS: NON-FORMULARY MEDICATION (Umeclidinium-Vilanterol [Anoro Ellipta] 62.5-25 mcg/actuation Bl INH SCH (10:05)
[2021-09-02] MEDS: SODIUM CHLORIDE 0.45% 1,000 ML IV SCH (10:06)
[2021-09-02] MEDS: LEVOFLOXACIN 750 MG TABLET PO SCH (11:53)
[2021-09-02] MEDS: LINEZOLID INJ 600 MG/300 ML PREMIX IV SCH (17:02)
[2021-09-02] MEDS: ATORVASTATIN 10 MG TABLET PO SCH (21:07)
[2021-09-02] MEDS: ASPIRIN EC 81 MG TABLET PO SCH (21:07)
[2021-09-03] MEDS: ALBUTEROL/IPRATROPIUM 3 ML NEB RESP TX SCH ×4 (00:20→19:27)
[2021-09-03 05:15] LABS: Calcium 8.6 MG/DL (8.5-10.1); Osmolality,Calculated 285.7 MOS/KG (273-304); Potassium 4.6 MMOL/L (3.5-5.1)
[2021-09-03 05:23] LABS: Basophils % 0.1 % (0.0-0.8); Eosinophils % 0.1 % (0.00-10.9); Hematocrit 38.7 VOL% (35.7-47.0); Immature Granulocytes Absolute 0.08 #; Lymphocytes # 0.3 10*3/uL (1.4-4.0); Lymphocytes % 3.7 % (21.3-54.2); Mean Corpuscular HGB Conc 29.2 GM/DL (32-36); Mean Corpuscular Volume 99.5 FL (87-102); Mean Platelet Volume 10.1 FL (9.6-12.0); Monocytes % 6.1 % (1.7-12.7); Platelet Count 157 T/CUMM (130-400); Red Blood Count 3.89 MC/CUMM (3.8-5.5); Red Cell Distribution Width 19.1 % (9.3-17.3); White Blood Count 8.2 T/CUMM (4-12)
[2021-09-03 05:24] LABS: Hemoglobin 11.3 GM/DL (12.0-16.0)
[2021-09-03 05:32] LABS: Hypochromasia Slight; Lymphocytes 2 % (20-55); Microcytosis Slight; Platelet Estimate Adequate; Segmented Neutrophils 92 % (50-85); Total Cells Counted 100
[2021-09-03] MEDS: LINEZOLID INJ 600 MG/300 ML PREMIX IV SCH ×2 (05:40→17:41)
[2021-09-03] MEDS: ASCORBIC ACID 500 MG TABLET PO SCH (09:22)
[2021-09-03] MEDS: methylPREDNISolone SOD SUC 40 MG/1 ML VIAL IV SCH ×2 (09:22→16:29)
[2021-09-03] MEDS: CYANOCOBALAMIN 500 MCG TABLET PO SCH (09:22)
[2021-09-03] MEDS: GABAPENTIN 300 MG CAPSULE PO SCH ×3 (09:22→21:10)
[2021-09-03] MEDS: APIXABAN 5 MG TABLET PO SCH ×2 (09:22→21:10)
[2021-09-03] MEDS: LEVOFLOXACIN 750 MG TABLET PO SCH (09:22)
[2021-09-03] MEDS: METOPROLOL TARTRATE 50 MG TABLET PO SCH ×2 (09:22→20:16)
[2021-09-03] MEDS: PANTOPRAZOLE 40 MG TABLET PO SCH (09:22)
[2021-09-03] MEDS: COLLAGENASE OINT 30 GM TUBE TOP SCH (09:23)
[2021-09-03] MEDS: NON-FORMULARY MEDICATION (Umeclidinium-Vilanterol [Anoro Ellipta] 62.5-25 mcg/actuation Bl INH SCH (09:23)
[2021-09-03] MEDS ORDERED: TUBERCULIN SKIN TEST 0.1 ML SYRINGE INTRADERM ONE (11:15)
[2021-09-03] MEDS: SODIUM CHLORIDE 0.45% 1,000 ML IV SCH (11:57)
[2021-09-03] MEDS: ATORVASTATIN 10 MG TABLET PO SCH (21:10)
[2021-09-03] MEDS: ASPIRIN EC 81 MG TABLET PO SCH (21:10)
[2021-09-04] MEDS: methylPREDNISolone SOD SUC 40 MG/1 ML VIAL IV SCH ×3 (00:41→17:55)
[2021-09-04] MEDS: ALBUTEROL/IPRATROPIUM 3 ML NEB RESP TX SCH ×4 (00:50→19:43)
[2021-09-04] MEDS ORDERED: MELATONIN 3 MG TABLET PO PRN (01:32)
[2021-09-04] MEDS: LINEZOLID INJ 600 MG/300 ML PREMIX IV SCH ×2 (05:37→17:55)
[2021-09-04 06:32] LABS: Calcium 8.6 MG/DL (8.5-10.1); Osmolality,Calculated 286.8 MOS/KG (273-304); Potassium 4.7 MMOL/L (3.5-5.1)
[2021-09-04 06:53] LABS: Hematocrit 39.2 VOL% (35.7-47.0); Hemoglobin 11.4 GM/DL (12.0-16.0); Immature Granulocytes Absolute 0.08 #; Lymphocytes # 0.4 10*3/uL (1.4-4.0); Lymphocytes % 4.7 % (21.3-54.2); Mean Corpuscular HGB Conc 29.1 GM/DL (32-36); Mean Corpuscular Volume 98.2 FL (87-102); Mean Platelet Volume 10.5 FL (9.6-12.0); Neutrophils % 90.3 % (38.7-73.9); Platelet Count 155 T/CUMM (130-400); Red Blood Count 3.99 MC/CUMM (3.8-5.5); Red Cell Distribution Width 18.6 % (9.3-17.3); White Blood Count 7.7 T/CUMM (4-12)
[2021-09-04 07:33] LABS: Band Neutrophils 1 % (0-10); Lymphocytes 8 % (20-55); Segmented Neutrophils 86 % (50-85); Total Cells Counted 100
[2021-09-04 07:34] LABS: Anisocytosis 1+; Basophilic Stippling Slight; Macrocytosis 1+; Platelet Estimate Normal
[2021-09-04] MEDS: CYANOCOBALAMIN 500 MCG TABLET PO SCH (09:38)
[2021-09-04] MEDS: ASCORBIC ACID 500 MG TABLET PO SCH (09:38)
[2021-09-04] MEDS: GABAPENTIN 300 MG CAPSULE PO SCH ×3 (09:38→21:23)
[2021-09-04] MEDS: PANTOPRAZOLE 40 MG TABLET PO SCH (09:38)
[2021-09-04] MEDS: METOPROLOL TARTRATE 50 MG TABLET PO SCH ×2 (09:38→21:21)
[2021-09-04] MEDS: APIXABAN 5 MG TABLET PO SCH ×2 (09:38→21:23)
[2021-09-04] MEDS: NON-FORMULARY MEDICATION (Umeclidinium-Vilanterol [Anoro Ellipta] 62.5-25 mcg/actuation Bl INH SCH (09:39)
[2021-09-04] MEDS: COLLAGENASE OINT 30 GM TUBE TOP SCH (09:39)
[2021-09-04] MEDS: SODIUM CHLORIDE 0.45% 1,000 ML IV SCH (11:50)
[2021-09-04] MEDS ORDERED: FUROSEMIDE 20 MG/2 ML VIAL IV ONE (13:27)
[2021-09-04] MEDS ORDERED: ALBUTEROL 2.5 MG/3 ML NEB RESP TX SCH (13:30)
[2021-09-04] MEDS ORDERED: ALBUTEROL 2.5 MG/3 ML NEB RESP TX PRN (13:31)
[2021-09-04] MEDS: ASPIRIN EC 81 MG TABLET PO SCH (21:23)
[2021-09-04] MEDS: ATORVASTATIN 10 MG TABLET PO SCH (21:23)
[2021-09-05] MEDS: methylPREDNISolone SOD SUC 40 MG/1 ML VIAL IV SCH ×2 (00:50→08:34)
[2021-09-05] MEDS: ALBUTEROL/IPRATROPIUM 3 ML NEB RESP TX SCH ×3 (00:50→12:45)
[2021-09-05 04:34] LABS: Calcium 8.6 MG/DL (8.5-10.1); Osmolality,Calculated 285.7 MOS/KG (273-304); Potassium 4.7 MMOL/L (3.5-5.1)
[2021-09-05 04:43] LABS: Basophils % 0.1 % (0.0-0.8); Hematocrit 40.2 VOL% (35.7-47.0); Immature Granulocytes % 1.1 %; Immature Granulocytes Absolute 0.08 #; Lymphocytes # 0.4 10*3/uL (1.4-4.0); Lymphocytes % 5.1 % (21.3-54.2); Mean Corpuscular HGB Conc 29.4 GM/DL (32-36); Mean Corpuscular Volume 98.8 FL (87-102); Mean Platelet Volume 10.6 FL (9.6-12.0); Monocytes % 4.6 % (1.7-12.7); Neutrophils % 89.1 % (38.7-73.9); Platelet Count 154 T/CUMM (130-400); Red Blood Count 4.07 MC/CUMM (3.8-5.5); Red Cell Distribution Width 18.5 % (9.3-17.3); White Blood Count 7.4 T/CUMM (4-12)
[2021-09-05 04:47] LABS: Hemoglobin 11.8 GM/DL (12.0-16.0)
[2021-09-05] MEDS: LINEZOLID INJ 600 MG/300 ML PREMIX IV SCH (06:12)
[2021-09-05] MEDS: GABAPENTIN 300 MG CAPSULE PO SCH (08:32)
[2021-09-05] MEDS: APIXABAN 5 MG TABLET PO SCH (08:32)
[2021-09-05] MEDS: CYANOCOBALAMIN 500 MCG TABLET PO SCH (08:32)
[2021-09-05] MEDS: PANTOPRAZOLE 40 MG TABLET PO SCH (08:32)
[2021-09-05] MEDS: ASCORBIC ACID 500 MG TABLET PO SCH (08:32)
[2021-09-05] MEDS: METOPROLOL TARTRATE 50 MG TABLET PO SCH (08:32)
[2021-09-05] MEDS: COLLAGENASE OINT 30 GM TUBE TOP SCH (08:34)
[2021-09-05] MEDS: NON-FORMULARY MEDICATION (Umeclidinium-Vilanterol [Anoro Ellipta] 62.5-25 mcg/actuation Bl INH SCH (08:34)
[2021-09-05 12:28] VITALS: BP 98/46
== END 2021-09-05 13:40 | disposition home health service (06) | DRG 252 ==
LOC: N.ED 13:49 → N.EDINP 16:56 → SUATTDRO 16:56 → N.EDINP 17:42 → N.3E 17:57
PROVIDERS: ADMIT Internal Medicine; ATTEND Internal Medicine
PROC: [UNRECOGNIZED PROCEDURE] (2021-09-01 14:05)

== ENCOUNTER 2022-04-08 14:50 | Inpatient (IN) ==
[2022-04-08] MEDS ORDERED: LACTATED RINGERS 1,000 ML IV ONE (16:19)
[2022-04-08 16:31] LABS: Alanine Aminotransferase 14 U/L (13-56); Alkaline Phosphatase 91 U/L (45-117); Aspartate Amino Transferase 13 U/L (0-37); Bilirubin,Total < 0.39 MG/DL (0.20-1.00); Blood Urea Nitrogen 34 MG/DL (7-18); Calcium 8.3 MG/DL (8.5-10.1); Carbon Dioxide 17 MMOL/L (21-32); Chloride 113 MMOL/L (98-107); Glucose 87 MG/DL (74-106); Osmolality,Calculated 279.8 MOS/KG (273-304); Potassium 4.5 MMOL/L (3.5-5.1); Sodium 137 MMOL/L (136-145); Total Protein 5.5 G/DL (6.4-8.2)
[2022-04-08] MEDS ORDERED: PIPERACILLIN/TAZOBACTAM 3,375 MG in SODIUM CHLORIDE 0.9% 100 ML IV STA (17:25)
[2022-04-08] MEDS ORDERED: VANCOMYCIN INJ 1,250 MG in SODIUM CHLORIDE 0.9% 250 ML IV STA (17:25)
[2022-04-08 17:40] LABS: Basophils % 0.3 % (0.0-0.8); Eosinophils % 0.1 % (0.00-10.9); Hematocrit 43.4 VOL% (35.7-47.0); Immature Granulocytes % 0.4 %; Immature Granulocytes Absolute 0.04 #; Lymphocytes # 1.5 10*3/uL (1.4-4.0); Lymphocytes % 15.6 % (21.3-54.2); Mean Corpuscular Volume 101.2 FL (87-102); Monocytes # 0.7 10*3/uL (0.11-0.8); Monocytes % 6.6 % (1.7-12.7); Platelet Count 241 T/CUMM (130-400); Red Blood Count 4.29 MC/CUMM (3.8-5.5); Red Cell Distribution Width 21.7 % (9.3-17.3); White Blood Count 9.9 T/CUMM (4-12)
[2022-04-08 17:45] LABS: Bacteria,Urine Many /HPF (Few); Mucus,Urine Occasional /LPF (Occasional); Squamous Epithelial Cell,Urine Occasional /HPF (0-10)
[2022-04-08 17:46] LABS: Urine Color Yellow (Yellow)
[2022-04-08 17:47] LABS: Bilirubin,Urine Negative (Negative); Blood, Urine Small mg/dL (Negative); Glucose,Urine (UA) Negative (Negative); Ketones,Urine Negative (Negative); Nitrite,Urine Positive (Negative); Protein,Urine 30 mg/dL (Negative); Urine Appearance Cloudy (Clear); Urine Specific Gravity 1.017 (1.001-1.035); Urine Urobilinogen 0.2 eU/dL (<2.0); Urine pH 5.5 (4.5-8.0)
[2022-04-08] MEDS ORDERED: ONDANSETRON 4 MG/2 ML VIAL IV PRN (19:56)
[2022-04-08] MEDS ORDERED: ACETAMINOPHEN 325 MG TABLET PO PRN (19:56)
[2022-04-08] MEDS ORDERED: GLUCAGON 1 MG VIAL IM PRN (19:56)
[2022-04-08] MEDS ORDERED: DEXTROSE 10% 250 ML BAG IV PRN (20:04)
[2022-04-08] MEDS ORDERED: VANCOMYCIN INJ 750 MG in SODIUM CHLORIDE 0.9% 250 ML IV PRN (20:21)
[2022-04-08] MEDS: CHOLESTYRAMINE 4 GM PACK PO SCH (21:34)
[2022-04-08] MEDS: GABAPENTIN 300 MG CAPSULE PO SCH (22:14)
[2022-04-08] MEDS: DULoxetine 30 MG CAPSULE PO SCH (22:15)
[2022-04-08] MEDS: ZALEPLON 5 MG CAPSULE PO SCH (22:15)
[2022-04-08] MEDS: ASPIRIN EC 81 MG TABLET PO SCH (22:16)
[2022-04-08] MEDS: SODIUM CHLORIDE 0.9% 1,000 ML IV SCH (22:16)
[2022-04-08] MEDS: ATORVASTATIN 10 MG TABLET PO SCH (22:16)
[2022-04-08] MEDS: CRANBERRY EXTRACT 650 MG PO SCH (22:17)
[2022-04-08] MEDS: ENOXAPARIN 60 MG/0.6 ML SYRINGE SUBCUT SCH (22:18)
[2022-04-09 05:19] LABS: Basophils % 0.3 % (0.0-0.8); Eosinophils # 0.1 10*3/uL (0.0-0.87); Eosinophils % 0.4 % (0.00-10.9); Hemoglobin 13.3 GM/DL (12.0-16.0); Immature Granulocytes % 0.6 %; Immature Granulocytes Absolute 0.07 #; Lymphocytes # 1.6 10*3/uL (1.4-4.0); Lymphocytes % 13.6 % (21.3-54.2); Mean Corpuscular HGB Conc 29.2 GM/DL (32-36); Mean Corpuscular Volume 105.1 FL (87-102); Mean Platelet Volume 9.9 FL (9.6-12.0); Monocytes % 8.6 % (1.7-12.7); Neutrophils % 76.5 % (38.7-73.9); Platelet Count 190 T/CUMM (130-400); Red Blood Count 4.33 MC/CUMM (3.8-5.5); Red Cell Distribution Width 21.7 % (9.3-17.3); White Blood Count 11.6 T/CUMM (4-12)
[2022-04-09 05:20] LABS: Hematocrit 45.5 VOL% (35.7-47.0)
[2022-04-09 05:51] LABS: Alanine Aminotransferase 15 U/L (13-56); Albumin 1.7 G/DL (3.4-5.0); Alkaline Phosphatase 89 U/L (45-117); Aspartate Amino Transferase 17 U/L (0-37); Bilirubin,Total < 0.39 MG/DL (0.20-1.00); Blood Urea Nitrogen 32 MG/DL (7-18); Calcium 8.4 MG/DL (8.5-10.1); Carbon Dioxide 11 MMOL/L (21-32); Chloride 118 MMOL/L (98-107); Cholesterol 70 MG/DL (50-200); Glucose 73 MG/DL (74-106); HDL Cholesterol 50 MG/DL (40-60); Potassium 4.2 MMOL/L (3.5-5.1); Sodium 136 MMOL/L (136-145); Triglycerides 116 MG/DL (2-150); VLDL Cholesterol 23.2 MG/DL
[2022-04-09] MEDS: SODIUM CHLORIDE 0.9% 1,000 ML IV SCH (06:21)
[2022-04-09] MEDS: PIPERACILLIN/TAZOBACTAM 3,375 MG in SODIUM CHLORIDE 0.9% 100 ML IV SCH ×2 (06:22→18:28)
[2022-04-09] MEDS: CHOLESTYRAMINE 4 GM PACK PO SCH ×2 (08:00→21:01)
[2022-04-09] MEDS: CYANOCOBALAMIN 500 MCG TABLET PO SCH (09:51)
[2022-04-09] MEDS: PANTOPRAZOLE 40 MG TABLET PO SCH (09:51)
[2022-04-09] MEDS: ASCORBIC ACID 500 MG TABLET PO SCH (09:51)
[2022-04-09] MEDS: GABAPENTIN 300 MG CAPSULE PO SCH ×3 (09:51→21:00)
[2022-04-09] MEDS: NON-FORMULARY MEDICATION (Umeclidinium-Vilanterol [Anoro Ellipta] 62.5-25 mcg/actuation Bl INH SCH (10:37)
[2022-04-09] MEDS ORDERED: VANCOMYCIN INJ 1,000 MG in SODIUM CHLORIDE 0.9% 250 ML IV PRN (11:33)
[2022-04-09] MEDS: VANCOMYCIN INJ 1,250 MG in SODIUM CHLORIDE 0.9% 250 ML IV ONE (12:48)
[2022-04-09 13:28] LABS: Hematocrit 40.2 VOL% (35.7-47.0); Hemoglobin 12.1 GM/DL (12.0-16.0)
[2022-04-09] MEDS: SODIUM BICARB INJ 150 MEQ in STERILE WATER INJ 850 ML IV SCH (17:25)
[2022-04-09] MEDS: ENOXAPARIN 60 MG/0.6 ML SYRINGE SUBCUT SCH (20:58)
[2022-04-09] MEDS: ASPIRIN EC 81 MG TABLET PO SCH (20:59)
[2022-04-09] MEDS: ZALEPLON 5 MG CAPSULE PO SCH (21:00)
[2022-04-09] MEDS: DULoxetine 30 MG CAPSULE PO SCH (21:00)
[2022-04-09] MEDS: ZINC OXIDE PASTE 113 GM TUBE TOP SCH (21:00)
[2022-04-09] MEDS: CRANBERRY EXTRACT 650 MG PO SCH (21:00)
[2022-04-09] MEDS: ATORVASTATIN 10 MG TABLET PO SCH (21:01)
[2022-04-10] MEDS: SODIUM BICARB INJ 150 MEQ in STERILE WATER INJ 850 ML IV SCH ×2 (04:34→17:29)
[2022-04-10 05:34] LABS: Osmolality,Calculated 288.8 MOS/KG (273-304); Potassium 3.5 MMOL/L (3.5-5.1)
[2022-04-10] MEDS: PIPERACILLIN/TAZOBACTAM 3,375 MG in SODIUM CHLORIDE 0.9% 100 ML IV SCH ×2 (06:42→18:57)
[2022-04-10] MEDS: PANTOPRAZOLE 40 MG TABLET PO SCH (09:20)
[2022-04-10] MEDS: GABAPENTIN 300 MG CAPSULE PO SCH ×3 (09:20→21:18)
[2022-04-10] MEDS: CHOLESTYRAMINE 4 GM PACK PO SCH ×2 (09:20→21:18)
[2022-04-10] MEDS: CYANOCOBALAMIN 500 MCG TABLET PO SCH (09:20)
[2022-04-10] MEDS: ASCORBIC ACID 500 MG TABLET PO SCH (09:20)
[2022-04-10] MEDS: NON-FORMULARY MEDICATION (Umeclidinium-Vilanterol [Anoro Ellipta] 62.5-25 mcg/actuation Bl INH SCH (09:21)
[2022-04-10] MEDS: ZINC OXIDE PASTE 113 GM TUBE TOP SCH ×2 (09:22→21:17)
[2022-04-10 09:45] LABS: Basophils % 0.2 % (0.0-0.8); Eosinophils # 0.1 10*3/uL (0.0-0.87); Eosinophils % 1.3 % (0.00-10.9); Hematocrit 38.7 VOL% (35.7-47.0); Hemoglobin 11.5 GM/DL (12.0-16.0); Immature Granulocytes % 0.7 %; Immature Granulocytes Absolute 0.06 #; Lymphocytes # 1.2 10*3/uL (1.4-4.0); Lymphocytes % 13.7 % (21.3-54.2); Mean Corpuscular HGB Conc 29.7 GM/DL (32-36); Mean Corpuscular Volume 102.9 FL (87-102); Mean Platelet Volume 10.4 FL (9.6-12.0); Monocytes # 0.9 10*3/uL (0.11-0.8); Monocytes % 9.9 % (1.7-12.7); Neutrophils % 74.2 % (38.7-73.9); Platelet Count 180 T/CUMM (130-400); Red Blood Count 3.76 MC/CUMM (3.8-5.5); Red Cell Distribution Width 21.4 % (9.3-17.3); White Blood Count 8.6 T/CUMM (4-12)
[2022-04-10] MEDS: VANCOMYCIN INJ 1,250 MG in SODIUM CHLORIDE 0.9% 250 ML IV ONE (11:38)
[2022-04-10] MEDS ORDERED: VANCOMYCIN INJ 1,000 MG in SODIUM CHLORIDE 0.9% 250 ML IV ONE ×2 (12:00→17:00)
[2022-04-10] MEDS: NICOTINE 14 MG/24 HR PATCH TRANSDERM SCH (14:57)
[2022-04-10] MEDS: CRANBERRY EXTRACT 650 MG PO SCH (21:17)
[2022-04-10] MEDS: DULoxetine 30 MG CAPSULE PO SCH (21:17)
[2022-04-10] MEDS: ASPIRIN EC 81 MG TABLET PO SCH (21:17)
[2022-04-10] MEDS: ATORVASTATIN 10 MG TABLET PO SCH (21:18)
[2022-04-10] MEDS: ZALEPLON 5 MG CAPSULE PO SCH (21:19)
[2022-04-10] MEDS: METOPROLOL SUCCINATE XL 50 MG TABLET PO SCH (22:37)
[2022-04-11] MEDS: SODIUM BICARB INJ 150 MEQ in STERILE WATER INJ 850 ML IV SCH ×2 (03:30→14:02)
[2022-04-11] MEDS: PIPERACILLIN/TAZOBACTAM 3,375 MG in SODIUM CHLORIDE 0.9% 100 ML IV SCH ×2 (06:13→18:08)
[2022-04-11 06:44] LABS: Calcium 7.6 MG/DL (8.5-10.1); Osmolality,Calculated 287.7 MOS/KG (273-304); Potassium 3.3 MMOL/L (3.5-5.1)
[2022-04-11 06:49] LABS: Basophils % 0.1 % (0.0-0.8); Eosinophils # 0.1 10*3/uL (0.0-0.87); Eosinophils % 0.5 % (0.00-10.9); Hematocrit 38.8 VOL% (35.7-47.0); Hemoglobin 11.8 GM/DL (12.0-16.0); Immature Granulocytes % 0.4 %; Immature Granulocytes Absolute 0.04 #; Lymphocytes # 0.9 10*3/uL (1.4-4.0); Lymphocytes % 9.4 % (21.3-54.2); Mean Corpuscular HGB Conc 30.4 GM/DL (32-36); Mean Platelet Volume 9.8 FL (9.6-12.0); Monocytes # 0.5 10*3/uL (0.11-0.8); Monocytes % 5.5 % (1.7-12.7); Neutrophils % 84.1 % (38.7-73.9); Platelet Count 178 T/CUMM (130-400); Red Blood Count 3.88 MC/CUMM (3.8-5.5); Red Cell Distribution Width 21.2 % (9.3-17.3); White Blood Count 9.3 T/CUMM (4-12)
[2022-04-11] MEDS: CYANOCOBALAMIN 500 MCG TABLET PO SCH (09:22)
[2022-04-11] MEDS: ASCORBIC ACID 500 MG TABLET PO SCH (09:22)
[2022-04-11] MEDS: METOPROLOL SUCCINATE XL 50 MG TABLET PO SCH (09:22)
[2022-04-11] MEDS: PANTOPRAZOLE 40 MG TABLET PO SCH (09:22)
[2022-04-11] MEDS: GABAPENTIN 300 MG CAPSULE PO SCH ×3 (09:22→21:37)
[2022-04-11] MEDS: CHOLESTYRAMINE 4 GM PACK PO SCH ×2 (09:22→21:37)
[2022-04-11] MEDS: ZINC OXIDE PASTE 113 GM TUBE TOP SCH ×2 (09:23→21:37)
[2022-04-11] MEDS: NON-FORMULARY MEDICATION (Umeclidinium-Vilanterol [Anoro Ellipta] 62.5-25 mcg/actuation Bl INH SCH (09:23)
[2022-04-11] MEDS: NICOTINE 14 MG/24 HR PATCH TRANSDERM SCH (09:28)
[2022-04-11] MEDS ORDERED: VANCOMYCIN INJ 1,000 MG in SODIUM CHLORIDE 0.9% 250 ML IV ONE (17:00)
[2022-04-11] MEDS ORDERED: APIXABAN 2.5 MG TABLET PO SCH (21:00)
[2022-04-11] MEDS: ASPIRIN EC 81 MG TABLET PO SCH (21:36)
[2022-04-11] MEDS: ZALEPLON 5 MG CAPSULE PO SCH (21:37)
[2022-04-11] MEDS: ATORVASTATIN 10 MG TABLET PO SCH (21:37)
[2022-04-11] MEDS: CRANBERRY EXTRACT 650 MG PO SCH (21:37)
[2022-04-11] MEDS: DULoxetine 30 MG CAPSULE PO SCH (21:37)
[2022-04-12 04:47] LABS: Basophils % 0.2 % (0.0-0.8); Eosinophils # 0.1 10*3/uL (0.0-0.87); Eosinophils % 1.2 % (0.00-10.9); Hematocrit 38.5 VOL% (35.7-47.0); Hemoglobin 11.7 GM/DL (12.0-16.0); Immature Granulocytes % 0.5 %; Immature Granulocytes Absolute 0.06 #; Lymphocytes # 1.6 10*3/uL (1.4-4.0); Lymphocytes % 14.8 % (21.3-54.2); Mean Corpuscular HGB Conc 30.4 GM/DL (32-36); Mean Corpuscular Volume 101.3 FL (87-102); Monocytes # 0.5 10*3/uL (0.11-0.8); Monocytes % 4.5 % (1.7-12.7); Neutrophils % 78.8 % (38.7-73.9); Platelet Count 157 T/CUMM (130-400)
[2022-04-12] MEDS: PIPERACILLIN/TAZOBACTAM 3,375 MG in SODIUM CHLORIDE 0.9% 100 ML IV SCH ×2 (05:06→17:39)
[2022-04-12 05:14] LABS: Calcium 7.7 MG/DL (8.5-10.1); Osmolality,Calculated 293.4 MOS/KG (273-304); Potassium 3.3 MMOL/L (3.5-5.1)
[2022-04-12] MEDS ORDERED: POTASSIUM CHLORIDE 20 MEQ TABLET PO ONE (08:28)
[2022-04-12] MEDS: ASCORBIC ACID 500 MG TABLET PO SCH (09:42)
[2022-04-12] MEDS: GABAPENTIN 300 MG CAPSULE PO SCH ×3 (09:42→21:09)
[2022-04-12] MEDS: CYANOCOBALAMIN 500 MCG TABLET PO SCH (09:42)
[2022-04-12] MEDS: METOPROLOL SUCCINATE XL 50 MG TABLET PO SCH ×2 (09:42→21:09)
[2022-04-12] MEDS: PANTOPRAZOLE 40 MG TABLET PO SCH (09:42)
[2022-04-12] MEDS: CHOLESTYRAMINE 4 GM PACK PO SCH ×2 (09:43→21:09)
[2022-04-12] MEDS: NICOTINE 14 MG/24 HR PATCH TRANSDERM SCH (09:43)
[2022-04-12] MEDS: ZINC OXIDE PASTE 113 GM TUBE TOP SCH ×2 (09:44→21:09)
[2022-04-12] MEDS: ENOXAPARIN 60 MG/0.6 ML SYRINGE SUBCUT SCH ×2 (10:00→21:09)
[2022-04-12] MEDS: NON-FORMULARY MEDICATION (Umeclidinium-Vilanterol [Anoro Ellipta] 62.5-25 mcg/actuation Bl INH SCH (10:34)
[2022-04-12] MEDS: ASPIRIN EC 81 MG TABLET PO SCH (21:09)
[2022-04-12] MEDS: ATORVASTATIN 10 MG TABLET PO SCH (21:09)
[2022-04-12] MEDS: ZALEPLON 5 MG CAPSULE PO SCH (21:09)
[2022-04-12] MEDS: DULoxetine 30 MG CAPSULE PO SCH (21:09)
[2022-04-13 04:37] LABS: Basophils % 0.3 % (0.0-0.8); Eosinophils # 0.2 10*3/uL (0.0-0.87); Hematocrit 37.1 VOL% (35.7-47.0); Hemoglobin 11.1 GM/DL (12.0-16.0); Immature Granulocytes % 0.5 %; Immature Granulocytes Absolute 0.05 #; Lymphocytes # 1.5 10*3/uL (1.4-4.0); Lymphocytes % 15.9 % (21.3-54.2); Mean Corpuscular HGB Conc 29.9 GM/DL (32-36); Mean Corpuscular Volume 100.8 FL (87-102); Mean Platelet Volume 10.1 FL (9.6-12.0); Monocytes # 0.7 10*3/uL (0.11-0.8); Monocytes % 7.5 % (1.7-12.7); Neutrophils % 73.8 % (38.7-73.9); Platelet Count 162 T/CUMM (130-400); Red Blood Count 3.68 MC/CUMM (3.8-5.5); Red Cell Distribution Width 20.9 % (9.3-17.3); White Blood Count 9.5 T/CUMM (4-12)
[2022-04-13 05:00] LABS: Calcium 7.7 MG/DL (8.5-10.1); Osmolality,Calculated 289.6 MOS/KG (273-304); Potassium 3.4 MMOL/L (3.5-5.1)
[2022-04-13] MEDS: PIPERACILLIN/TAZOBACTAM 3,375 MG in SODIUM CHLORIDE 0.9% 100 ML IV SCH ×3 (05:48→21:58)
[2022-04-13] MEDS: ASCORBIC ACID 500 MG TABLET PO SCH (09:18)
[2022-04-13] MEDS: PANTOPRAZOLE 40 MG TABLET PO SCH (09:18)
[2022-04-13] MEDS: NICOTINE 14 MG/24 HR PATCH TRANSDERM SCH (09:21)
[2022-04-13] MEDS: CHOLESTYRAMINE 4 GM PACK PO SCH ×2 (09:21→21:13)
[2022-04-13] MEDS: CYANOCOBALAMIN 500 MCG TABLET PO SCH (09:21)
[2022-04-13] MEDS: GABAPENTIN 300 MG CAPSULE PO SCH ×3 (09:21→21:10)
[2022-04-13] MEDS: ENOXAPARIN 60 MG/0.6 ML SYRINGE SUBCUT SCH (09:21)
[2022-04-13] MEDS: METOPROLOL SUCCINATE XL 50 MG TABLET PO SCH ×2 (09:21→21:14)
[2022-04-13] MEDS: ZINC OXIDE PASTE 113 GM TUBE TOP SCH ×2 (09:24→21:09)
[2022-04-13] MEDS: NON-FORMULARY MEDICATION (Umeclidinium-Vilanterol [Anoro Ellipta] 62.5-25 mcg/actuation Bl INH SCH (09:52)
[2022-04-13] MEDS ORDERED: BISACODYL 5 MG TABLET PO ONE (12:00)
[2022-04-13] MEDS ORDERED: POLYETHYLENE GLYCOL POWDER 255 GM BOTTLE PO ONE (18:00)
[2022-04-13] MEDS: DULoxetine 30 MG CAPSULE PO SCH (21:09)
[2022-04-13] MEDS: ASPIRIN EC 81 MG TABLET PO SCH (21:09)
[2022-04-13] MEDS: ATORVASTATIN 10 MG TABLET PO SCH (21:10)
[2022-04-13] MEDS: ZALEPLON 5 MG CAPSULE PO SCH (21:13)
[2022-04-14] MEDS: PIPERACILLIN/TAZOBACTAM 3,375 MG in SODIUM CHLORIDE 0.9% 100 ML IV SCH (04:30)
[2022-04-14 05:08] LABS: INR 1.7; PT Patient Result 17.6 SECS (10.5-12.0)
[2022-04-14 05:20] LABS: Basophils % 0.3 % (0.0-0.8); Eosinophils # 0.2 10*3/uL (0.0-0.87); Eosinophils % 1.7 % (0.00-10.9); Hematocrit 36.9 VOL% (35.7-47.0); Hemoglobin 11.4 GM/DL (12.0-16.0); Immature Granulocytes % 0.5 %; Immature Granulocytes Absolute 0.05 #; Lymphocytes # 1.7 10*3/uL (1.4-4.0); Lymphocytes % 17.1 % (21.3-54.2); Mean Corpuscular HGB Conc 30.9 GM/DL (32-36); Monocytes # 0.7 10*3/uL (0.11-0.8); Monocytes % 7.1 % (1.7-12.7); Neutrophils % 73.3 % (38.7-73.9); Platelet Count 156 T/CUMM (130-400); Red Blood Count 3.69 MC/CUMM (3.8-5.5); Red Cell Distribution Width 20.3 % (9.3-17.3); White Blood Count 9.8 T/CUMM (4-12)
[2022-04-14 05:33] LABS: Calcium 7.2 MG/DL (8.5-10.1); Osmolality,Calculated 285.7 MOS/KG (273-304); Potassium 4.5 MMOL/L (3.5-5.1)
[2022-04-14] MEDS ORDERED: LACTATED RINGERS 1,000 ML IV SCH (08:00)
[2022-04-14] MEDS ORDERED: LIDOCAINE 2% 5 ML VIAL ONE (08:31)
[2022-04-14] MEDS ORDERED: propofoL 200 MG/20 ML VIAL IV ONE (08:31)
[2022-04-14] MEDS ORDERED: ONDANSETRON 4 MG/2 ML VIAL ONE (09:18)
[2022-04-14] MEDS: ASCORBIC ACID 500 MG TABLET PO SCH (10:04)
[2022-04-14] MEDS: CYANOCOBALAMIN 500 MCG TABLET PO SCH (10:04)
[2022-04-14] MEDS: GABAPENTIN 300 MG CAPSULE PO SCH (10:05)
[2022-04-14] MEDS: PANTOPRAZOLE 40 MG TABLET PO SCH (10:05)
[2022-04-14] MEDS: METOPROLOL SUCCINATE XL 50 MG TABLET PO SCH (10:05)
[2022-04-14] MEDS: NICOTINE 14 MG/24 HR PATCH TRANSDERM SCH (10:05)
[2022-04-14] MEDS: CHOLESTYRAMINE 4 GM PACK PO SCH (10:05)
[2022-04-14] MEDS: ZINC OXIDE PASTE 113 GM TUBE TOP SCH (10:06)
[2022-04-14] MEDS: NON-FORMULARY MEDICATION (Umeclidinium-Vilanterol [Anoro Ellipta] 62.5-25 mcg/actuation Bl INH SCH (10:06)
[2022-04-14] MEDS ORDERED: VANCOMYCIN INJ 1,000 MG in SODIUM CHLORIDE 0.9% 250 ML IV ONE (11:00)
[2022-04-14 12:02] VITALS: BP 134/69
[2022-04-14] MEDS ORDERED: FLUCONAZOLE 200 MG TABLET PO SCH (13:00)
== END 2022-04-14 14:27 | disposition home health service (06) | DRG 871 ==
LOC: EDUNIT# → N.ED 14:50 → N.TELEN 19:56 → SUATTDRO 19:56 → N.TELEN 21:46
PROVIDERS: ADMIT Internal Medicine; ATTEND Emergency Medicine

== ENCOUNTER 2022-04-30 10:21 | Inpatient (IN) ==
[2022-04-30 11:23] LABS: Basophils % 0.1 % (0.0-0.8); Eosinophils % 0.1 % (0.00-10.9); Hematocrit 36.7 VOL% (35.7-47.0); Immature Granulocytes % 0.4 %; Immature Granulocytes Absolute 0.05 #; Lymphocytes # 1.1 10*3/uL (1.4-4.0); Lymphocytes % 8.3 % (21.3-54.2); Mean Corpuscular Volume 101.9 FL (87-102); Monocytes # 0.7 10*3/uL (0.11-0.8); Monocytes % 4.8 % (1.7-12.7); NRBC # 0.05 10*3/uL; Neutrophils % 86.3 % (38.7-73.9); Platelet Count 269 T/CUMM (130-400); Red Cell Distribution Width 19.5 % (9.3-17.3); White Blood Count 13.6 T/CUMM (4-12)
[2022-04-30 11:49] LABS: Alanine Aminotransferase 30 U/L (13-56); Albumin 1.6 G/DL (3.4-5.0); Alkaline Phosphatase 122 U/L (45-117); Aspartate Amino Transferase 29 U/L (0-37); Bilirubin,Total < 0.39 MG/DL (0.20-1.00); Blood Urea Nitrogen 25 MG/DL (7-18); Calcium 8.2 MG/DL (8.5-10.1); Carbon Dioxide 19 MMOL/L (21-32); Chloride 116 MMOL/L (98-107); Glucose 92 MG/DL (74-106); Osmolality,Calculated 282.4 MOS/KG (273-304); Sodium 140 MMOL/L (136-145)
[2022-04-30 11:51] LABS: Potassium 6.6 MMOL/L (3.5-5.1)
[2022-04-30] MEDS ORDERED: FUROSEMIDE 100 MG/10 ML VIAL IV STA (12:10)
[2022-04-30] MEDS ORDERED: cefTRIAXone 1,000 MG in SODIUM CHLORIDE 0.9% 100 ML IV STA (12:30)
[2022-04-30 12:35] LABS: RBC,Urine 1 /HPF (0-4); Squamous Epithelial Cell,Urine Occasional /HPF (0-10)
[2022-04-30 12:36] LABS: Bilirubin,Urine Moderate mg/dL (Negative); Blood, Urine Trace mg/dL (Negative); Glucose,Urine (UA) Negative (Negative); Ketones,Urine Negative (Negative); Nitrite,Urine Positive (Negative); Protein,Urine Trace mg/dL (Negative); Urine Appearance Clear (Clear); Urine Color Yellow (Yellow); Urine Specific Gravity 1.025 (1.001-1.035); Urine Urobilinogen 0.2 eU/dL (<2.0); Urine pH 5.5 (4.5-8.0)
[2022-04-30] MEDS ORDERED: INSULIN REGULAR 10 UNIT, CALCIUM GLUCONATE 1,000 MG in DEXTROSE 10% 250 ML IV ONE (12:45)
[2022-04-30] MEDS ORDERED: ONDANSETRON 4 MG/2 ML VIAL IV PRN (12:56)
[2022-04-30] MEDS ORDERED: GLUCAGON 1 MG VIAL IM PRN (12:56)
[2022-04-30] MEDS ORDERED: hydrALAZINE 20 MG/1 ML VIAL IV PRN (12:56)
[2022-04-30] MEDS ORDERED: DEXTROSE 10% 250 ML BAG IV PRN (13:04)
[2022-04-30] MEDS: ALBUTEROL/IPRATROPIUM 3 ML NEB RESP TX SCH ×2 (13:15→20:09)
[2022-04-30] MEDS: AZITHROMYCIN INJ 500 MG in SODIUM CHLORIDE 0.9% 250 ML IV SCH (15:27)
[2022-04-30] MEDS: SODIUM CHLORIDE 0.9% 1,000 ML IV SCH (15:49)
[2022-04-30] MEDS: INSULIN REGULAR 100 UNIT/ML SUBCUT SCH ×2 (16:46→20:48)
[2022-05-01] MEDS: ALBUTEROL/IPRATROPIUM 3 ML NEB RESP TX SCH ×4 (01:14→19:52)
[2022-05-01 06:49] LABS: Basophils % 0.1 % (0.0-0.8); Eosinophils % 0.1 % (0.00-10.9); Hematocrit 37.9 VOL% (35.7-47.0); Immature Granulocytes % 0.4 %; Immature Granulocytes Absolute 0.05 #; Lymphocytes # 0.9 10*3/uL (1.4-4.0); Lymphocytes % 6.2 % (21.3-54.2); Mean Corpuscular HGB Conc 29.6 GM/DL (32-36); Mean Corpuscular Volume 101.9 FL (87-102); Mean Platelet Volume 10.4 FL (9.6-12.0); Monocytes # 0.6 10*3/uL (0.11-0.8); Monocytes % 4.6 % (1.7-12.7); NRBC # 0.09 10*3/uL; Neutrophils % 88.6 % (38.7-73.9); Platelet Count 287 T/CUMM (130-400); Red Blood Count 3.72 MC/CUMM (3.8-5.5); Red Cell Distribution Width 19.8 % (9.3-17.3); White Blood Count 13.8 T/CUMM (4-12)
[2022-05-01 07:00] LABS: Hemoglobin 11.2 GM/DL (12.0-16.0)
[2022-05-01 07:14] LABS: Calcium 8.5 MG/DL (8.5-10.1); Osmolality,Calculated 281.5 MOS/KG (273-304); Risk Ratio 1.19; Thyroid Stimulating Hormone 2.07 uIU/ml (0.358-3.74); VLDL Cholesterol 16.2 MG/DL
[2022-05-01 07:17] LABS: Potassium 6.7 MMOL/L (3.5-5.1)
[2022-05-01] MEDS ORDERED: INSULIN REGULAR 100 UNIT/ML IV ONE (08:33)
[2022-05-01] MEDS ORDERED: FUROSEMIDE 20 MG/2 ML VIAL IV ONE (08:38)
[2022-05-01] MEDS ORDERED: cefTRIAXone 1,000 MG in SODIUM CHLORIDE 0.9% 100 ML IV SCH (09:00)
[2022-05-01] MEDS ORDERED: DEXTROSE 10% 250 ML BAG IV ONE (09:00)
[2022-05-01] MEDS: INSULIN REGULAR 100 UNIT/ML SUBCUT SCH ×4 (09:09→21:52)
[2022-05-01] MEDS: SODIUM POLYSTYRENE SULFATE 15 GM/60 ML BOTTLE PO SCH ×3 (10:30→21:52)
[2022-05-01] MEDS: PANTOPRAZOLE 40 MG TABLET PO SCH (10:37)
[2022-05-01] MEDS: SODIUM CHLORIDE 0.9% 1,000 ML IV SCH (12:11)
[2022-05-01] MEDS: SODIUM BICARB INJ 150 MEQ in DEXTROSE 5% 850 ML IV SCH ×2 (12:51)
[2022-05-01] MEDS: guaiFENesin/DM ER 600-30 MG TABLET PO SCH ×2 (15:30→21:50)
[2022-05-01] MEDS: AZITHROMYCIN INJ 500 MG in SODIUM CHLORIDE 0.9% 250 ML IV SCH (15:30)
[2022-05-01] MEDS: GABAPENTIN 300 MG CAPSULE PO SCH ×2 (16:09→21:50)
[2022-05-01] MEDS: FUROSEMIDE 40 MG TABLET PO SCH (16:09)
[2022-05-01] MEDS: CHOLESTYRAMINE 4 GM PACK PO SCH (21:48)
[2022-05-01] MEDS: DULoxetine 30 MG CAPSULE PO SCH (21:50)
[2022-05-01] MEDS: ATORVASTATIN 10 MG TABLET PO SCH (21:51)
[2022-05-01] MEDS: ZALEPLON 5 MG CAPSULE PO SCH (21:51)
[2022-05-01] MEDS: APIXABAN 5 MG TABLET PO SCH (21:51)
[2022-05-02] MEDS: ALBUTEROL/IPRATROPIUM 3 ML NEB RESP TX SCH ×5 (00:01→19:38)
[2022-05-02] MEDS: SODIUM POLYSTYRENE SULFATE 15 GM/60 ML BOTTLE PO SCH ×3 (03:00→16:45)
[2022-05-02] MEDS: SODIUM BICARB INJ 150 MEQ in DEXTROSE 5% 850 ML IV SCH ×3 (03:24→15:30)
[2022-05-02 05:09] LABS: Basophils % 0.2 % (0.0-0.8); Eosinophils % 0.1 % (0.00-10.9); Hemoglobin 11.3 GM/DL (12.0-16.0); Immature Granulocytes % 0.5 %; Immature Granulocytes Absolute 0.08 #; Lymphocytes # 0.6 10*3/uL (1.4-4.0); Mean Corpuscular HGB Conc 30.5 GM/DL (32-36); Mean Corpuscular Volume 101.1 FL (87-102); Mean Platelet Volume 10.5 FL (9.6-12.0); Monocytes # 0.5 10*3/uL (0.11-0.8); Monocytes % 3.2 % (1.7-12.7); NRBC # 0.13 10*3/uL; Platelet Count 272 T/CUMM (130-400); Red Blood Count 3.66 MC/CUMM (3.8-5.5); Red Cell Distribution Width 19.9 % (9.3-17.3); White Blood Count 15.8 T/CUMM (4-12)
[2022-05-02 05:43] LABS: Band Neutrophils 4 % (0-10); Lymphocytes 2 % (20-55); Macrocytosis 1+; Nucleated Red Blood Cells 2 (0-5); Total Cells Counted 100
[2022-05-02 06:06] LABS: Alanine Aminotransferase 34 U/L (13-56); Albumin 1.4 G/DL (3.4-5.0); Alkaline Phosphatase 128 U/L (45-117); Aspartate Amino Transferase 48 U/L (0-37); Bilirubin,Total < 0.39 MG/DL (0.20-1.00); Blood Urea Nitrogen 28 MG/DL (7-18); Calcium 6.5 MG/DL (8.5-10.1); Carbon Dioxide 18 MMOL/L (21-32); Chloride 114 MMOL/L (98-107); Glucose 67 MG/DL (74-106); Osmolality,Calculated 280.5 MOS/KG (273-304); Sodium 139 MMOL/L (136-145); Total Protein 5.5 G/DL (6.4-8.2)
[2022-05-02] MEDS: METOPROLOL TARTRATE 5 MG/5 ML VIAL IV SCH ×3 (08:14→08:33)
[2022-05-02] MEDS ORDERED: ALBUTEROL/IPRATROPIUM 3 ML NEB RESP TX STA (08:16)
[2022-05-02] MEDS ORDERED: PIPERACILLIN/TAZOBACTAM 3,375 MG in SODIUM CHLORIDE 0.9% 100 ML IV SCH (08:30)
[2022-05-02] MEDS ORDERED: FUROSEMIDE 20 MG/2 ML VIAL IV ONE (08:30)
[2022-05-02 08:58] LABS: Arterial Base Excess iSTAT -5 MMOL/L (-2.5-2.5); Arterial Bicarbonate iSTAT 23.1 MMOL/L (20-26); Arterial O2 Saturation iSTAT 21 % (95-100); Arterial PCO2 iSTAT 58 MM HG (35-48); Arterial PO2 iSTAT 19 MM HG (80-95); Arterial Total CO2 iSTAT 25 MMO/L (23-27); Arterial pH iSTAT 7.209 (7.35-7.45)
[2022-05-02 08:59] LABS: Arterial Base Excess iSTAT -7 MMOL/L (-2.5-2.5); Arterial Bicarbonate iSTAT 21.7 MMOL/L (20-26); Arterial O2 Saturation iSTAT 90 % (95-100); Arterial PCO2 iSTAT 55 MM HG (35-48); Arterial PO2 iSTAT 72 MM HG (80-95); Arterial Total CO2 iSTAT 23 MMO/L (23-27); Arterial pH iSTAT 7.204 (7.35-7.45)
[2022-05-02] MEDS ORDERED: VANCOMYCIN INJ 750 MG in SODIUM CHLORIDE 0.9% 250 ML IV PRN (09:21)
[2022-05-02] MEDS ORDERED: VANCOMYCIN INJ 1,500 MG in SODIUM CHLORIDE 0.9% 500 ML IV ONE (10:00)
[2022-05-02] MEDS: SODIUM CHLORIDE 0.9% 1,000 ML IV SCH (10:04)
[2022-05-02] MEDS: FUROSEMIDE 40 MG TABLET PO SCH (10:05)
[2022-05-02] MEDS: INSULIN REGULAR 100 UNIT/ML SUBCUT SCH ×4 (10:06→23:27)
[2022-05-02] MEDS: CEFEPIME 1,000 MG in SODIUM CHLORIDE 0.9% 100 ML IV SCH ×2 (10:34→20:30)
[2022-05-02] MEDS: PANTOPRAZOLE 40 MG TABLET PO SCH (10:38)
[2022-05-02] MEDS: APIXABAN 5 MG TABLET PO SCH ×2 (10:38→20:26)
[2022-05-02] MEDS: guaiFENesin/DM ER 600-30 MG TABLET PO SCH ×2 (10:38→20:26)
[2022-05-02] MEDS: GABAPENTIN 300 MG CAPSULE PO SCH ×2 (10:38→16:21)
[2022-05-02] MEDS: CHOLESTYRAMINE 4 GM PACK PO SCH (10:39)
[2022-05-02] MEDS ORDERED: ROCURONIUM 100 MG/10 ML VIAL IV ONE ×2 (14:15→14:41)
[2022-05-02] MEDS ORDERED: ETOMIDATE 20 MG/10 ML VIAL IV ONE ×3 (14:15→14:39)
[2022-05-02] MEDS: CYANOCOBALAMIN 500 MCG TABLET PO SCH (15:00)
[2022-05-02] MEDS ORDERED: MIDAZOLAM 100 MG in SODIUM CHLORIDE 0.9% 80 ML IV PRN (15:35)
[2022-05-02 15:42] LABS: ABG Base Excess -4.6 MMOL/L (-2.5-2.5); ABG HCO3 20.6 MMOL/L (20-26); ABG Oxygen Saturation 99.6 % (95-100); ABG PCO2 37.4 MM HG (35-48); ABG PH 7.348 (7.35-7.45); ABG TCO2 18.8 MMOL/L (23-27)
[2022-05-02] MEDS ORDERED: MIDAZOLAM 2 MG/2 ML VIAL IV ONE (16:00)
[2022-05-02] MEDS: NOREPINEPHRINE 8 MG in SODIUM CHLORIDE 0.9% 242 ML IV PRN (16:14)
[2022-05-02] MEDS: fentaNYL INJ 1,250 MCG in SODIUM CHLORIDE 0.9% 225 ML IV PRN (16:23)
[2022-05-02 17:06] LABS: Arterial Base Excess iSTAT -3 MMOL/L (-2.5-2.5); Arterial Bicarbonate iSTAT 22.3 MMOL/L (20-26); Arterial O2 Saturation iSTAT 100 % (95-100); Arterial PCO2 iSTAT 38 MM HG (35-48); Arterial PO2 iSTAT 341 MM HG (80-95); Arterial Total CO2 iSTAT 23 MMO/L (23-27); Arterial pH iSTAT 7.378 (7.35-7.45)
[2022-05-02 18:25] LABS: Calcium 7.7 MG/DL (8.5-10.1); Osmolality,Calculated 291.8 MOS/KG (273-304); Potassium 5.1 MMOL/L (3.5-5.1)
[2022-05-02] MEDS: ZALEPLON 5 MG CAPSULE PO SCH (20:17)
[2022-05-02] MEDS: ATORVASTATIN 10 MG TABLET PO SCH (20:26)
[2022-05-02] MEDS: GABAPENTIN 100 MG CAPSULE PER TUBE SCH (20:26)
[2022-05-02] MEDS: DULoxetine 30 MG CAPSULE PO SCH (20:26)
[2022-05-02] MEDS: ALBUMIN 25% 25 GM/100 ML VIAL IV SCH (23:06)
[2022-05-02] MEDS ORDERED: SODIUM CHLORIDE 0.9% 250 ML IV ONE (23:40)
[2022-05-03] MEDS: ALBUTEROL/IPRATROPIUM 3 ML NEB RESP TX SCH ×4 (00:02→19:32)
[2022-05-03] MEDS ORDERED: SODIUM CHLORIDE 0.9% 250 ML IV ONE (00:07)
[2022-05-03] MEDS ORDERED: METOPROLOL TARTRATE 5 MG/5 ML VIAL IV ONE ×2 (01:09→05:58)
[2022-05-03] MEDS: HYDROCORTISONE 100 MG VIAL IV SCH ×3 (01:25→16:00)
[2022-05-03 04:18] LABS: Arterial Base Excess iSTAT -2 MMOL/L (-2.5-2.5); Arterial Bicarbonate iSTAT 22.2 MMOL/L (20-26); Arterial O2 Saturation iSTAT 100 % (95-100); Arterial PCO2 iSTAT 34 MM HG (35-48); Arterial PO2 iSTAT 173 MM HG (80-95); Arterial Total CO2 iSTAT 23 MMO/L (23-27); Arterial pH iSTAT 7.417 (7.35-7.45)
[2022-05-03 04:29] LABS: Basophils % 0.2 % (0.0-0.8); Hematocrit 29.1 VOL% (35.7-47.0); Immature Granulocytes % 0.2 %; Immature Granulocytes Absolute 0.03 #; Lymphocytes # 0.3 10*3/uL (1.4-4.0); Lymphocytes % 2.4 % (21.3-54.2); Mean Corpuscular HGB Conc 30.6 GM/DL (32-36); Mean Corpuscular Volume 98.3 FL (87-102); Mean Platelet Volume 10.7 FL (9.6-12.0); Monocytes # 0.3 10*3/uL (0.11-0.8); Monocytes % 2.2 % (1.7-12.7); Red Blood Count 2.96 MC/CUMM (3.8-5.5); Red Cell Distribution Width 19.8 % (9.3-17.3); White Blood Count 13.2 T/CUMM (4-12)
[2022-05-03 04:30] LABS: Hemoglobin 8.9 GM/DL (12.0-16.0); Platelet Count 188 T/CUMM (130-400)
[2022-05-03 04:43] LABS: Albumin 1.7 G/DL (3.4-5.0); Bilirubin,Total 0.4 MG/DL (0.20-1.00); Calcium 7.7 MG/DL (8.5-10.1); Osmolality,Calculated 297.6 MOS/KG (273-304); Total Protein 4.9 G/DL (6.4-8.2)
[2022-05-03 04:48] LABS: Band Neutrophils 7 % (0-10); Lymphocytes 1 % (20-55); Nucleated Red Blood Cells 1 (0-5); Platelet Estimate Adequate; Total Cells Counted 100
[2022-05-03] MEDS ORDERED: MAGNESIUM SULF RIDER 4 GM/100 ML PREMIX IV PRN (04:50)
[2022-05-03] MEDS: INSULIN REGULAR 100 UNIT/ML SUBCUT SCH ×3 (05:00→17:00)
[2022-05-03] MEDS: MAGNESIUM SULF RIDER 2 GM/50 ML PREMIX IV PRN (05:07)
[2022-05-03] MEDS: ALBUMIN 25% 25 GM/100 ML VIAL IV SCH (05:07)
[2022-05-03 05:30] LABS: Hepatitis B Core IgM Quant < 0.05 Index; Hepatitis B Surface Ag Quant < 0.10 Index; Hepatitis B Surface Ag Result Non-Reactive (NonReactive); Hepatitis C Virus Ab Quant 0.05 Index; Hepatitis C Virus Ab Result Non-Reactive (NonReactive)
[2022-05-03] MEDS: NOREPINEPHRINE 8 MG in SODIUM CHLORIDE 0.9% 242 ML IV PRN (07:58)
[2022-05-03] MEDS: SODIUM BICARB INJ 150 MEQ in DEXTROSE 5% 850 ML IV SCH ×2 (08:40→10:25)
[2022-05-03] MEDS: PANTOPRAZOLE 40 MG VIAL IV SCH (08:50)
[2022-05-03] MEDS: GABAPENTIN 100 MG CAPSULE PER TUBE SCH ×2 (08:53→21:26)
[2022-05-03] MEDS: APIXABAN 5 MG TABLET PO SCH ×2 (08:53→21:27)
[2022-05-03] MEDS: guaiFENesin/DM ER 600-30 MG TABLET PO SCH ×2 (08:53→21:26)
[2022-05-03] MEDS: CYANOCOBALAMIN 500 MCG TABLET PO SCH (08:54)
[2022-05-03] MEDS: CEFEPIME 1,000 MG in SODIUM CHLORIDE 0.9% 100 ML IV SCH ×2 (08:54→21:27)
[2022-05-03] MEDS: METOPROLOL TARTRATE 5 MG/5 ML VIAL IV SCH ×4 (09:00→21:28)
[2022-05-03] MEDS ORDERED: SODIUM CHLORIDE 0.9% 1,000 ML IV ONE (10:42)
[2022-05-03] MEDS: fentaNYL INJ 1,250 MCG in SODIUM CHLORIDE 0.9% 225 ML IV PRN (12:30)
[2022-05-03] MEDS: SODIUM BICARB INJ 100 MEQ in DEXTROSE 5% 1,000 ML IV SCH (13:34)
[2022-05-03] MEDS ORDERED: ALBUTEROL 2.5 MG/3 ML NEB RESP TX PRN (15:29)
[2022-05-03] MEDS ORDERED: VANCOMYCIN INJ 1,000 MG in SODIUM CHLORIDE 0.9% 250 ML IV PRN (17:11)
[2022-05-03] MEDS ORDERED: AMIODARONE INJ 150 MG in DEXTROSE 5% 100 ML IV ONE (19:14)
[2022-05-03] MEDS ORDERED: AMIODARONE 150 MG/3 ML VIAL ONE (19:38)
[2022-05-03] MEDS: AMIODARONE INJ 450 MG in DEXTROSE 5% 241 ML IV SCH (19:55)
[2022-05-03] MEDS: ASPIRIN EC 81 MG TABLET PO SCH (21:26)
[2022-05-03] MEDS: DULoxetine 30 MG CAPSULE PO SCH (21:26)
[2022-05-03] MEDS: DESITIN 4OZ/NYSTATIN 15 GRAM MIXTURE PASTE TOP SCH (21:27)
[2022-05-03] MEDS: ATORVASTATIN 10 MG TABLET PO SCH (21:27)
[2022-05-04] MEDS: ALBUTEROL/IPRATROPIUM 3 ML NEB RESP TX SCH ×4 (00:11→19:37)
[2022-05-04] MEDS: HYDROCORTISONE 100 MG VIAL IV SCH ×4 (00:48→17:40)
[2022-05-04] MEDS: INSULIN REGULAR 100 UNIT/ML SUBCUT SCH ×4 (00:48→17:35)
[2022-05-04] MEDS: METOPROLOL TARTRATE 5 MG/5 ML VIAL IV SCH ×6 (02:02→21:20)
[2022-05-04 04:31] LABS: Basophils % 0.1 % (0.0-0.8); Hematocrit 26.4 VOL% (35.7-47.0); Hemoglobin 8.4 GM/DL (12.0-16.0); Immature Granulocytes % 0.4 %; Immature Granulocytes Absolute 0.04 #; Lymphocytes # 0.3 10*3/uL (1.4-4.0); Lymphocytes % 2.8 % (21.3-54.2); Mean Corpuscular HGB Conc 31.8 GM/DL (32-36); Mean Corpuscular Volume 97.1 FL (87-102); Mean Platelet Volume 11.3 FL (9.6-12.0); Monocytes # 0.3 10*3/uL (0.11-0.8); Monocytes % 2.9 % (1.7-12.7); NRBC # 0.06 10*3/uL; Neutrophils % 93.8 % (38.7-73.9); Platelet Count 160 T/CUMM (130-400); Red Blood Count 2.72 MC/CUMM (3.8-5.5); Red Cell Distribution Width 19.8 % (9.3-17.3)
[2022-05-04 04:53] LABS: Band Neutrophils 2 % (0-10); Lymphocytes 3 % (20-55); Platelet Estimate Adequate; Total Cells Counted 100
[2022-05-04 04:56] LABS: Alanine Aminotransferase 19 U/L (13-56); Albumin 1.8 G/DL (3.4-5.0); Alkaline Phosphatase 87 U/L (45-117); Aspartate Amino Transferase 36 U/L (0-37); Bilirubin,Total < 0.39 MG/DL (0.20-1.00); Blood Urea Nitrogen 30 MG/DL (7-18); Calcium 7.1 MG/DL (8.5-10.1); Carbon Dioxide 25 MMOL/L (21-32); Chloride 114 MMOL/L (98-107); Glucose 176 MG/DL (74-106); Osmolality,Calculated 299.6 MOS/KG (273-304); Potassium 3.8 MMOL/L (3.5-5.1); Sodium 146 MMOL/L (136-145); Total Protein 4.2 G/DL (6.4-8.2)
[2022-05-04 05:32] LABS: ABG HCO3 24.5 MMOL/L (20-26); ABG Oxygen Saturation 98.5 % (95-100); ABG PCO2 36.3 MM HG (35-48); ABG TCO2 22.5 MMOL/L (23-27)
[2022-05-04] MEDS: NOREPINEPHRINE 8 MG in SODIUM CHLORIDE 0.9% 242 ML IV PRN (07:30)
[2022-05-04] MEDS: PANTOPRAZOLE 40 MG VIAL IV SCH (08:20)
[2022-05-04] MEDS: guaiFENesin/DM ER 600-30 MG TABLET PO SCH ×2 (08:22→21:19)
[2022-05-04] MEDS: DESITIN 4OZ/NYSTATIN 15 GRAM MIXTURE PASTE TOP SCH ×2 (08:22→21:31)
[2022-05-04] MEDS: APIXABAN 5 MG TABLET PO SCH ×2 (08:22→21:19)
[2022-05-04] MEDS: GABAPENTIN 100 MG CAPSULE PER TUBE SCH ×2 (08:22→21:32)
[2022-05-04] MEDS: CYANOCOBALAMIN 500 MCG TABLET PO SCH (08:23)
[2022-05-04] MEDS: CEFEPIME 1,000 MG in SODIUM CHLORIDE 0.9% 100 ML IV SCH ×2 (08:35→21:32)
[2022-05-04] MEDS: SODIUM BICARB INJ 100 MEQ in DEXTROSE 5% 1,000 ML IV SCH (09:09)
[2022-05-04] MEDS: AMIODARONE INJ 450 MG in DEXTROSE 5% 241 ML IV SCH (11:01)
[2022-05-04] MEDS: ASPIRIN EC 81 MG TABLET PO SCH (21:19)
[2022-05-04] MEDS: DULoxetine 30 MG CAPSULE PO SCH (21:19)
[2022-05-04] MEDS: ATORVASTATIN 10 MG TABLET PO SCH (21:19)
[2022-05-05] MEDS: INSULIN REGULAR 100 UNIT/ML SUBCUT SCH ×4 (00:34→17:45)
[2022-05-05] MEDS: ALBUTEROL/IPRATROPIUM 3 ML NEB RESP TX SCH ×4 (00:40→20:14)
[2022-05-05] MEDS: AMIODARONE INJ 450 MG in DEXTROSE 5% 241 ML IV SCH ×3 (01:30→18:35)
[2022-05-05] MEDS: METOPROLOL TARTRATE 5 MG/5 ML VIAL IV SCH ×6 (03:16→21:27)
[2022-05-05] MEDS: HYDROCORTISONE 100 MG VIAL IV SCH ×3 (03:17→21:27)
[2022-05-05 05:00] LABS: Basophils % 0.1 % (0.0-0.8); Hematocrit 23.5 VOL% (35.7-47.0); Hemoglobin 7.1 GM/DL (12.0-16.0); Immature Granulocytes % 0.4 %; Immature Granulocytes Absolute 0.03 #; Lymphocytes # 0.4 10*3/uL (1.4-4.0); Lymphocytes % 5.7 % (21.3-54.2); Mean Corpuscular HGB Conc 30.2 GM/DL (32-36); Mean Platelet Volume 10.9 FL (9.6-12.0); Monocytes # 0.5 10*3/uL (0.11-0.8); Monocytes % 7.1 % (1.7-12.7); NRBC # 0.04 10*3/uL; Neutrophils % 86.7 % (38.7-73.9); Platelet Count 123 T/CUMM (130-400); Red Blood Count 2.35 MC/CUMM (3.8-5.5); Red Cell Distribution Width 19.9 % (9.3-17.3); White Blood Count 7.6 T/CUMM (4-12)
[2022-05-05 05:11] LABS: Arterial Base Excess iSTAT -2 MMOL/L (-2.5-2.5); Arterial Bicarbonate iSTAT 23.6 MMOL/L (20-26); Arterial O2 Saturation iSTAT 72 % (95-100); Arterial PCO2 iSTAT 41 MM HG (35-48); Arterial PO2 iSTAT 39 MM HG (80-95); Arterial Total CO2 iSTAT 25 MMO/L (23-27); Arterial pH iSTAT 7.373 (7.35-7.45)
[2022-05-05 05:17] LABS: Arterial Base Excess iSTAT 0 MMOL/L (-2.5-2.5); Arterial Bicarbonate iSTAT 24.6 MMOL/L (20-26); Arterial O2 Saturation iSTAT 90 % (95-100); Arterial PCO2 iSTAT 38 MM HG (35-48); Arterial PO2 iSTAT 58 MM HG (80-95); Arterial Total CO2 iSTAT 26 MMO/L (23-27); Arterial pH iSTAT 7.418 (7.35-7.45)
[2022-05-05 05:21] LABS: Lymphocytes 6 % (20-55); Total Cells Counted 100
[2022-05-05 05:30] LABS: Alanine Aminotransferase 15 U/L (13-56); Albumin 1.4 G/DL (3.4-5.0); Alkaline Phosphatase 72 U/L (45-117); Aspartate Amino Transferase 27 U/L (0-37); Bilirubin,Total < 0.39 MG/DL (0.20-1.00); Blood Urea Nitrogen 41 MG/DL (7-18); Calcium 7.7 MG/DL (8.5-10.1); Carbon Dioxide 27 MMOL/L (21-32); Chloride 110 MMOL/L (98-107); Glucose 154 MG/DL (74-106); Osmolality,Calculated 295.1 MOS/KG (273-304); Potassium 3.8 MMOL/L (3.5-5.1); Sodium 142 MMOL/L (136-145); Total Protein 4.2 G/DL (6.4-8.2)
[2022-05-05 05:39] LABS: ABG Base Excess 0.7 MMOL/L (-2.5-2.5); ABG HCO3 25.1 MMOL/L (20-26); ABG Oxygen Saturation 97.4 % (95-100); ABG PCO2 39.3 MM HG (35-48); ABG PH 7.416 (7.35-7.45); ABG TCO2 23.8 MMOL/L (23-27)
[2022-05-05] MEDS ORDERED: SODIUM CHLORIDE 0.9% 1,000 ML IV PRN (08:09)
[2022-05-05] MEDS: DESITIN 4OZ/NYSTATIN 15 GRAM MIXTURE PASTE TOP SCH ×2 (09:05→21:29)
[2022-05-05] MEDS: CEFEPIME 1,000 MG in SODIUM CHLORIDE 0.9% 100 ML IV SCH ×2 (11:10→21:28)
[2022-05-05] MEDS: PANTOPRAZOLE 40 MG VIAL IV SCH ×2 (11:19→21:28)
[2022-05-05] MEDS: guaiFENesin/DM ER 600-30 MG TABLET PO SCH ×2 (11:20→21:29)
[2022-05-05] MEDS: CYANOCOBALAMIN 500 MCG TABLET PO SCH (11:20)
[2022-05-05 11:31] LABS: % Iron Saturation 10.4 % (18-50)
[2022-05-05] MEDS ORDERED: FUROSEMIDE 40 MG/4 ML VIAL IV ONE (20:27)
[2022-05-05] MEDS: ALBUMIN 25% 12.5 GM/50 ML VIAL IV SCH ×2 (21:27→21:46)
[2022-05-05] MEDS: GABAPENTIN 100 MG CAPSULE PER TUBE SCH (21:29)
[2022-05-05] MEDS: ATORVASTATIN 10 MG TABLET PO SCH (21:29)
[2022-05-05] MEDS: DULoxetine 30 MG CAPSULE PO SCH (21:29)
[2022-05-05 22:36] LABS: Hematocrit 29.3 VOL% (35.7-47.0); Hemoglobin 9.4 GM/DL (12.0-16.0)
[2022-05-06] MEDS: INSULIN REGULAR 100 UNIT/ML SUBCUT SCH ×5 (00:02→23:15)
[2022-05-06] MEDS: ALBUTEROL/IPRATROPIUM 3 ML NEB RESP TX SCH ×5 (00:15→23:23)
[2022-05-06] MEDS: ALBUMIN 25% 12.5 GM/50 ML VIAL IV SCH (02:32)
[2022-05-06] MEDS: METOPROLOL TARTRATE 5 MG/5 ML VIAL IV SCH ×3 (02:32→11:16)
[2022-05-06 02:53] LABS: Arterial Base Excess iSTAT -2 MMOL/L (-2.5-2.5); Arterial Bicarbonate iSTAT 23.1 MMOL/L (20-26); Arterial O2 Saturation iSTAT 97 % (95-100); Arterial PCO2 iSTAT 39 MM HG (35-48); Arterial PO2 iSTAT 95 MM HG (80-95); Arterial Total CO2 iSTAT 24 MMO/L (23-27); Arterial pH iSTAT 7.381 (7.35-7.45)
[2022-05-06 04:34] LABS: Basophils % 0.3 % (0.0-0.8); Eosinophils % 0.1 % (0.00-10.9); Hematocrit 29.8 VOL% (35.7-47.0); Hemoglobin 9.2 GM/DL (12.0-16.0); Immature Granulocytes % 1.2 %; Immature Granulocytes Absolute 0.14 #; Lymphocytes # 1.7 10*3/uL (1.4-4.0); Lymphocytes % 14.2 % (21.3-54.2); Mean Corpuscular HGB Conc 30.9 GM/DL (32-36); Mean Corpuscular Volume 97.7 FL (87-102); Mean Platelet Volume 9.5 FL (9.6-12.0); Monocytes # 1.8 10*3/uL (0.11-0.8); Monocytes % 15.8 % (1.7-12.7); Neutrophils % 68.4 % (38.7-73.9); Platelet Count 470 T/CUMM (130-400); Red Blood Count 3.05 MC/CUMM (3.8-5.5); Red Cell Distribution Width 15.8 % (9.3-17.3); White Blood Count 11.7 T/CUMM (4-12)
[2022-05-06 05:00] LABS: Albumin 1.8 G/DL (3.4-5.0); Bilirubin,Total 0.4 MG/DL (0.20-1.00); Calcium 8.8 MG/DL (8.5-10.1); Osmolality,Calculated 270.1 MOS/KG (273-304); Potassium 3.3 MMOL/L (3.5-5.1); Total Protein 9.5 G/DL (6.4-8.2)
[2022-05-06 05:04] LABS: Lymphocytes 16 % (20-55); Platelet Estimate Adequate; Total Cells Counted 100
[2022-05-06] MEDS: MAGNESIUM SULF RIDER 2 GM/50 ML PREMIX IV PRN (06:38)
[2022-05-06] MEDS: POTASSIUM CHLORIDE RIDER 20 MEQ/100 ML PREMIX IV PRN (06:38)
[2022-05-06] MEDS: AMIODARONE INJ 450 MG in DEXTROSE 5% 241 ML IV SCH (08:36)
[2022-05-06] MEDS ORDERED: AMIODARONE 200 MG TABLET PO SCH (09:00)
[2022-05-06] MEDS: PANTOPRAZOLE 40 MG VIAL IV SCH ×2 (09:10→20:05)
[2022-05-06] MEDS: CEFEPIME 1,000 MG in SODIUM CHLORIDE 0.9% 100 ML IV SCH ×2 (09:10→20:32)
[2022-05-06] MEDS: HYDROCORTISONE 100 MG VIAL IV SCH ×2 (09:10→13:54)
[2022-05-06] MEDS: DESITIN 4OZ/NYSTATIN 15 GRAM MIXTURE PASTE TOP SCH ×2 (09:11→20:05)
[2022-05-06] MEDS: guaiFENesin/DM ER 600-30 MG TABLET PO SCH (09:11)
[2022-05-06] MEDS: CYANOCOBALAMIN 500 MCG TABLET PO SCH (09:11)
[2022-05-06 09:18] LABS: Alanine Aminotransferase 14 U/L (13-56); Albumin 1.5 G/DL (3.4-5.0); Alkaline Phosphatase 51 U/L (45-117); Aspartate Amino Transferase 21 U/L (0-37); Bilirubin,Total < 0.39 MG/DL (0.20-1.00); Blood Urea Nitrogen 53 MG/DL (7-18); Calcium 7.6 MG/DL (8.5-10.1); Carbon Dioxide 25 MMOL/L (21-32); Chloride 111 MMOL/L (98-107); Glucose 186 MG/DL (74-106); Potassium 3.7 MMOL/L (3.5-5.1); Sodium 143 MMOL/L (136-145); Total Protein 3.8 G/DL (6.4-8.2)
[2022-05-06] MEDS ORDERED: METOPROLOL TARTRATE 5 MG/5 ML VIAL IV ONE (13:47)
[2022-05-06] MEDS: METOPROLOL TARTRATE 5 MG/5 ML VIAL IV PRN ×2 (13:50→21:20)
[2022-05-06 14:10] LABS: Hematocrit 19.8 VOL% (35.7-47.0); Immature Granulocytes % 1.2 %; Immature Granulocytes Absolute 0.13 #; Lymphocytes # 0.8 10*3/uL (1.4-4.0); Lymphocytes % 7.4 % (21.3-54.2); Mean Corpuscular HGB Conc 31.8 GM/DL (32-36); Mean Corpuscular Volume 95.2 FL (87-102); Mean Platelet Volume 12.1 FL (9.6-12.0); Monocytes # 0.7 10*3/uL (0.11-0.8); Monocytes % 7.1 % (1.7-12.7); NRBC # 0.07 10*3/uL; Neutrophils % 84.3 % (38.7-73.9); Platelet Count 86 T/CUMM (130-400); Red Blood Count 2.08 MC/CUMM (3.8-5.5); Red Cell Distribution Width 19.7 % (9.3-17.3); White Blood Count 10.4 T/CUMM (4-12)
[2022-05-06 14:15] LABS: Hemoglobin 6.3 GM/DL (12.0-16.0)
[2022-05-06] MEDS ORDERED: SODIUM CHLORIDE 0.9% 1,000 ML IV PRN (14:17)
[2022-05-06] MEDS ORDERED: LACTATED RINGERS 1,000 ML IV ONE (14:51)
[2022-05-06 16:41] LABS: Lymphocytes 8 % (20-55); Metamyelocytes 1 %; Total Cells Counted 100
[2022-05-06 16:42] LABS: Microcytosis Slight; Platelet Estimate Decreased
[2022-05-06] MEDS: ATORVASTATIN 10 MG TABLET PO SCH (20:05)
[2022-05-06] MEDS: DULoxetine 30 MG CAPSULE PO SCH (20:05)
[2022-05-06] MEDS: GABAPENTIN 100 MG CAPSULE PER TUBE SCH (20:05)
[2022-05-06 23:20] LABS: Hematocrit 28.5 VOL% (35.7-47.0); Hemoglobin 9.4 GM/DL (12.0-16.0)
[2022-05-06] MEDS ORDERED: AMIODARONE INJ 150 MG in DEXTROSE 5% 100 ML IV ONE (23:43)
[2022-05-06] MEDS ORDERED: AMIODARONE 150 MG/3 ML VIAL ONE (23:44)
[2022-05-07] MEDS ORDERED: AMIODARONE INJ 450 MG in DEXTROSE 5% 241 ML IV SCH
[2022-05-07] MEDS: HYDROCORTISONE 100 MG VIAL IV SCH ×2 (00:26→15:13)
[2022-05-07] MEDS: METOPROLOL TARTRATE 5 MG/5 ML VIAL IV PRN (01:44)
[2022-05-07 03:05] LABS: Arterial Base Excess iSTAT -3 MMOL/L (-2.5-2.5); Arterial Bicarbonate iSTAT 21.7 MMOL/L (20-26); Arterial O2 Saturation iSTAT 92 % (95-100); Arterial PCO2 iSTAT 36 MM HG (35-48); Arterial PO2 iSTAT 65 MM HG (80-95); Arterial Total CO2 iSTAT 23 MMO/L (23-27)
[2022-05-07 04:30] LABS: Basophils % 0.2 % (0.0-0.8); Hematocrit 27.5 VOL% (35.7-47.0); Hemoglobin 8.9 GM/DL (12.0-16.0); Immature Granulocytes % 1.7 %; Lymphocytes # 0.7 10*3/uL (1.4-4.0); Mean Corpuscular HGB Conc 32.4 GM/DL (32-36); Mean Corpuscular Volume 89.6 FL (87-102); Mean Platelet Volume 12.9 FL (9.6-12.0); Monocytes % 8.4 % (1.7-12.7); NRBC # 0.16 10*3/uL; Neutrophils % 83.7 % (38.7-73.9); Platelet Count 80 T/CUMM (130-400); Red Blood Count 3.07 MC/CUMM (3.8-5.5); White Blood Count 11.6 T/CUMM (4-12)
[2022-05-07 04:48] LABS: Calcium 7.9 MG/DL (8.5-10.1); Osmolality,Calculated 299.4 MOS/KG (273-304); Potassium 3.7 MMOL/L (3.5-5.1)
[2022-05-07 04:50] LABS: Anisocytosis 2+; Lymphocytes 5 % (20-55); Microcytosis 1+; Nucleated Red Blood Cells 1 (0-5); Platelet Estimate Normal; Polychromasia 1+; Total Cells Counted 100
[2022-05-07 04:52] LABS: Albumin 1.5 G/DL (3.4-5.0); Bilirubin,Direct 0.2 MG/DL (0.0-0.20); Bilirubin,Indirect 0.3 MG/DL (0.0-1.0); Bilirubin,Total 0.5 MG/DL (0.20-1.00); Total Protein 3.9 G/DL (6.4-8.2)
[2022-05-07] MEDS: INSULIN REGULAR 100 UNIT/ML SUBCUT SCH ×4 (05:00→23:51)
[2022-05-07] MEDS: ALBUTEROL/IPRATROPIUM 3 ML NEB RESP TX SCH ×3 (07:39→19:12)
[2022-05-07] MEDS: AMIODARONE INJ 450 MG in DEXTROSE 5% 241 ML IV SCH ×2 (08:18→23:00)
[2022-05-07] MEDS: PANTOPRAZOLE 40 MG VIAL IV SCH ×2 (08:18→23:40)
[2022-05-07] MEDS: CYANOCOBALAMIN 500 MCG TABLET PO SCH (08:19)
[2022-05-07] MEDS: DESITIN 4OZ/NYSTATIN 15 GRAM MIXTURE PASTE TOP SCH ×2 (08:19→23:42)
[2022-05-07] MEDS: CEFEPIME 1,000 MG in SODIUM CHLORIDE 0.9% 100 ML IV SCH ×2 (08:55→23:40)
[2022-05-07] MEDS: ALBUMIN 25% 25 GM/100 ML VIAL IV SCH ×2 (10:33→18:53)
[2022-05-07] MEDS ORDERED: LACTATED RINGERS 1,000 ML IV ONE (10:34)
[2022-05-07] MEDS ORDERED: EPINEPHrine 1 MG/ML VIAL ONE (12:18)
[2022-05-07] MEDS ORDERED: PHENYLEPHRINE 1 MG/10 ML SYRINGE IV ONE (13:11)
[2022-05-07] MEDS ORDERED: propofoL 200 MG/20 ML VIAL IV ONE (13:11)
[2022-05-07 14:24] LABS: Basophils % 0.1 % (0.0-0.8); Eosinophils % 0.2 % (0.00-10.9); Hematocrit 21.4 VOL% (35.7-47.0); Hemoglobin 6.9 GM/DL (12.0-16.0); Immature Granulocytes % 1.7 %; Immature Granulocytes Absolute 0.16 #; Lymphocytes # 0.8 10*3/uL (1.4-4.0); Lymphocytes % 9.1 % (21.3-54.2); Mean Corpuscular HGB Conc 32.2 GM/DL (32-36); Mean Corpuscular Volume 90.3 FL (87-102); Mean Platelet Volume 12.5 FL (9.6-12.0); Monocytes # 0.7 10*3/uL (0.11-0.8); Monocytes % 7.4 % (1.7-12.7); NRBC # 0.15 10*3/uL; Neutrophils % 81.5 % (38.7-73.9); Platelet Count 75 T/CUMM (130-400); Red Blood Count 2.37 MC/CUMM (3.8-5.5); Red Cell Distribution Width 18.6 % (9.3-17.3); White Blood Count 9.3 T/CUMM (4-12)
[2022-05-07 14:46] LABS: INR 1.2; PT Patient Result 13.2 SECS (10.5-12.0); Partial Thromboplastin Time 42.1 SECS (23.7-32.9)
[2022-05-07 14:52] LABS: Band Neutrophils 1 % (0-10); Lymphocytes 9 % (20-55); Nucleated Red Blood Cells 2 (0-5); Total Cells Counted 100
[2022-05-07 14:53] LABS: Platelet Estimate Decreased
[2022-05-07] MEDS ORDERED: SODIUM CHLORIDE 0.9% 1,000 ML IV PRN (15:59)
[2022-05-07] MEDS: METOCLOPRAMIDE 10 MG/2 ML VIAL IV SCH ×2 (18:54→23:40)
[2022-05-07] MEDS: ATORVASTATIN 10 MG TABLET PO SCH (23:41)
[2022-05-07] MEDS: GABAPENTIN 100 MG CAPSULE PER TUBE SCH (23:41)
[2022-05-07] MEDS: DULoxetine 30 MG CAPSULE PO SCH (23:41)
[2022-05-08] MEDS: AMIODARONE INJ 450 MG in DEXTROSE 5% 241 ML IV SCH ×2 (00:39→16:31)
[2022-05-08] MEDS: ALBUTEROL/IPRATROPIUM 3 ML NEB RESP TX SCH ×4 (00:47→19:46)
[2022-05-08] MEDS: HYDROCORTISONE 100 MG VIAL IV SCH (02:15)
[2022-05-08] MEDS: ALBUMIN 25% 25 GM/100 ML VIAL IV SCH (02:16)
[2022-05-08 03:46] LABS: Basophils % 0.1 % (0.0-0.8); Eosinophils % 0.4 % (0.00-10.9); Hematocrit 30.5 VOL% (35.7-47.0); Hemoglobin 9.8 GM/DL (12.0-16.0); Immature Granulocytes % 1.8 %; Immature Granulocytes Absolute 0.17 #; Lymphocytes # 0.6 10*3/uL (1.4-4.0); Lymphocytes % 6.7 % (21.3-54.2); Mean Corpuscular HGB Conc 32.1 GM/DL (32-36); Mean Platelet Volume 12.3 FL (9.6-12.0); Monocytes # 0.5 10*3/uL (0.11-0.8); Monocytes % 4.8 % (1.7-12.7); NRBC # 0.14 10*3/uL; Neutrophils % 86.2 % (38.7-73.9); Platelet Count 77 T/CUMM (130-400); Red Blood Count 3.35 MC/CUMM (3.8-5.5); Red Cell Distribution Width 16.8 % (9.3-17.3); White Blood Count 9.3 T/CUMM (4-12)
[2022-05-08 04:01] LABS: Osmolality,Calculated 299.3 MOS/KG (273-304); Potassium 3.1 MMOL/L (3.5-5.1)
[2022-05-08 04:29] LABS: Lymphocytes 7 % (20-55); Nucleated Red Blood Cells 1 (0-5); Total Cells Counted 100
[2022-05-08 04:30] LABS: Platelet Estimate Decreased
[2022-05-08 04:37] LABS: Arterial Base Excess iSTAT -2 MMOL/L (-2.5-2.5); Arterial Bicarbonate iSTAT 22.6 MMOL/L (20-26); Arterial O2 Saturation iSTAT 100 % (95-100); Arterial PCO2 iSTAT 39 MM HG (35-48); Arterial PO2 iSTAT 183 MM HG (80-95); Arterial Total CO2 iSTAT 24 MMO/L (23-27); Arterial pH iSTAT 7.369 (7.35-7.45)
[2022-05-08] MEDS: INSULIN REGULAR 100 UNIT/ML SUBCUT SCH ×3 (06:22→18:46)
[2022-05-08] MEDS: METOCLOPRAMIDE 10 MG/2 ML VIAL IV SCH ×3 (06:22→18:44)
[2022-05-08 07:11] VITALS: BP 115/54
[2022-05-08] MEDS: DESITIN 4OZ/NYSTATIN 15 GRAM MIXTURE PASTE TOP SCH ×2 (08:30→20:29)
[2022-05-08] MEDS: PANTOPRAZOLE 40 MG VIAL IV SCH ×2 (09:38→20:28)
[2022-05-08] MEDS: CYANOCOBALAMIN 500 MCG TABLET PO SCH (09:40)
[2022-05-08] MEDS: CEFEPIME 1,000 MG in SODIUM CHLORIDE 0.9% 100 ML IV SCH ×2 (10:04→20:30)
[2022-05-08] MEDS: POTASSIUM CHLORIDE RIDER 20 MEQ/100 ML PREMIX IV PRN ×2 (12:52→14:52)
[2022-05-08 13:50] LABS: Basophils % 0.1 % (0.0-0.8); Eosinophils % 0.2 % (0.00-10.9); Hemoglobin 9.8 GM/DL (12.0-16.0); Immature Granulocytes % 1.7 %; Immature Granulocytes Absolute 0.14 #; Lymphocytes # 0.8 10*3/uL (1.4-4.0); Lymphocytes % 8.9 % (21.3-54.2); Mean Corpuscular HGB Conc 32.7 GM/DL (32-36); Mean Corpuscular Volume 90.9 FL (87-102); Mean Platelet Volume 12.7 FL (9.6-12.0); Monocytes # 0.4 10*3/uL (0.11-0.8); Monocytes % 4.4 % (1.7-12.7); NRBC # 0.11 10*3/uL; Neutrophils % 84.7 % (38.7-73.9); Platelet Count 91 T/CUMM (130-400); Red Cell Distribution Width 17.2 % (9.3-17.3); White Blood Count 8.4 T/CUMM (4-12)
[2022-05-08] MEDS ORDERED: FUROSEMIDE 40 MG/4 ML VIAL IV ONE (14:58)
[2022-05-08] MEDS: DULoxetine 30 MG CAPSULE PO SCH (20:28)
[2022-05-08] MEDS: ATORVASTATIN 10 MG TABLET PO SCH (20:28)
[2022-05-08] MEDS: GABAPENTIN 100 MG CAPSULE PER TUBE SCH (20:29)
[2022-05-09] MEDS: METOCLOPRAMIDE 10 MG/2 ML VIAL IV SCH ×4 (00:27→18:20)
[2022-05-09] MEDS: POTASSIUM CHLORIDE RIDER 20 MEQ/100 ML PREMIX IV PRN ×3 (00:27→18:21)
[2022-05-09] MEDS: INSULIN REGULAR 100 UNIT/ML SUBCUT SCH ×4 (00:28→18:20)
[2022-05-09] MEDS: ALBUTEROL/IPRATROPIUM 3 ML NEB RESP TX SCH ×4 (00:30→19:24)
[2022-05-09] MEDS: POTASSIUM CHLORIDE RIDER 10 MEQ/100 ML PREMIX IV PRN ×3 (02:28→19:00)
[2022-05-09 04:19] LABS: Basophils % 0.1 % (0.0-0.8); Eosinophils # 0.1 10*3/uL (0.0-0.87); Eosinophils % 0.6 % (0.00-10.9); Hematocrit 29.8 VOL% (35.7-47.0); Hemoglobin 9.6 GM/DL (12.0-16.0); Immature Granulocytes % 1.3 %; Immature Granulocytes Absolute 0.13 #; Lymphocytes # 0.5 10*3/uL (1.4-4.0); Lymphocytes % 4.8 % (21.3-54.2); Mean Corpuscular HGB Conc 32.2 GM/DL (32-36); Monocytes # 0.4 10*3/uL (0.11-0.8); Monocytes % 3.5 % (1.7-12.7); NRBC # 0.06 10*3/uL; Neutrophils % 89.7 % (38.7-73.9); Platelet Count 116 T/CUMM (130-400); Red Blood Count 3.24 MC/CUMM (3.8-5.5); Red Cell Distribution Width 17.5 % (9.3-17.3); White Blood Count 9.9 T/CUMM (4-12)
[2022-05-09 04:19] LABS: Arterial Base Excess iSTAT -4 MMOL/L (-2.5-2.5); Arterial Bicarbonate iSTAT 21.3 MMOL/L (20-26); Arterial O2 Saturation iSTAT 98 % (95-100); Arterial PCO2 iSTAT 38 MM HG (35-48); Arterial PO2 iSTAT 100 MM HG (80-95); Arterial Total CO2 iSTAT 22 MMO/L (23-27); Arterial pH iSTAT 7.363 (7.35-7.45)
[2022-05-09 04:34] LABS: Calcium 8.1 MG/DL (8.5-10.1); Osmolality,Calculated 304.1 MOS/KG (273-304); Potassium 3.4 MMOL/L (3.5-5.1)
[2022-05-09 05:23] LABS: Band Neutrophils 1 % (0-10); Lymphocytes 6 % (20-55); Nucleated Red Blood Cells 1 (0-5); Total Cells Counted 100
[2022-05-09 05:24] LABS: Platelet Estimate Adequate
[2022-05-09] MEDS: AMIODARONE INJ 450 MG in DEXTROSE 5% 241 ML IV SCH ×2 (05:42→09:15)
[2022-05-09] MEDS ORDERED: FUROSEMIDE 40 MG/4 ML VIAL IV ONE (08:30)
[2022-05-09] MEDS: CEFEPIME 1,000 MG in SODIUM CHLORIDE 0.9% 100 ML IV SCH (09:28)
[2022-05-09] MEDS: PANTOPRAZOLE 40 MG VIAL IV SCH ×2 (09:29→20:05)
[2022-05-09] MEDS: CYANOCOBALAMIN 500 MCG TABLET PO SCH (09:30)
[2022-05-09] MEDS: DESITIN 4OZ/NYSTATIN 15 GRAM MIXTURE PASTE TOP SCH ×2 (09:30→20:04)
[2022-05-09] MEDS: METOPROLOL TARTRATE 5 MG/5 ML VIAL IV PRN ×2 (09:50→18:20)
[2022-05-09 14:09] LABS: Basophils % 0.1 % (0.0-0.8); Eosinophils # 0.1 10*3/uL (0.0-0.87); Eosinophils % 0.8 % (0.00-10.9); Hematocrit 31.8 VOL% (35.7-47.0); Hemoglobin 10.1 GM/DL (12.0-16.0); Immature Granulocytes % 1.2 %; Immature Granulocytes Absolute 0.12 #; Lymphocytes # 0.6 10*3/uL (1.4-4.0); Lymphocytes % 5.8 % (21.3-54.2); Mean Corpuscular HGB Conc 31.8 GM/DL (32-36); Mean Platelet Volume 12.1 FL (9.6-12.0); Monocytes # 0.3 10*3/uL (0.11-0.8); Monocytes % 3.3 % (1.7-12.7); NRBC # 0.05 10*3/uL; Neutrophils % 88.8 % (38.7-73.9); Platelet Count 144 T/CUMM (130-400); Red Blood Count 3.42 MC/CUMM (3.8-5.5); Red Cell Distribution Width 17.9 % (9.3-17.3)
[2022-05-09] MEDS: ATORVASTATIN 10 MG TABLET PO SCH (20:05)
[2022-05-09] MEDS: DULoxetine 30 MG CAPSULE PO SCH (20:05)
[2022-05-09] MEDS: GABAPENTIN 100 MG CAPSULE PER TUBE SCH (20:06)
[2022-05-10] MEDS: INSULIN REGULAR 100 UNIT/ML SUBCUT SCH ×5 (00:02→23:44)
[2022-05-10] MEDS: METOCLOPRAMIDE 10 MG/2 ML VIAL IV SCH ×5 (00:03→23:52)
[2022-05-10] MEDS: ALBUTEROL/IPRATROPIUM 3 ML NEB RESP TX SCH ×4 (00:20→19:45)
[2022-05-10] MEDS: AMIODARONE INJ 450 MG in DEXTROSE 5% 241 ML IV SCH ×3 (01:48→20:31)
[2022-05-10 03:54] LABS: Arterial Base Excess iSTAT -4 MMOL/L (-2.5-2.5); Arterial Bicarbonate iSTAT 21.2 MMOL/L (20-26); Arterial O2 Saturation iSTAT 95 % (95-100); Arterial PCO2 iSTAT 40 MM HG (35-48); Arterial PO2 iSTAT 81 MM HG (80-95); Arterial Total CO2 iSTAT 22 MMO/L (23-27); Arterial pH iSTAT 7.334 (7.35-7.45)
[2022-05-10 04:11] LABS: Basophils % 0.1 % (0.0-0.8); Eosinophils # 0.1 10*3/uL (0.0-0.87); Hematocrit 31.8 VOL% (35.7-47.0); Immature Granulocytes % 1.1 %; Immature Granulocytes Absolute 0.11 #; Lymphocytes # 0.4 10*3/uL (1.4-4.0); Lymphocytes % 4.3 % (21.3-54.2); Mean Corpuscular HGB Conc 31.4 GM/DL (32-36); Mean Corpuscular Volume 94.4 FL (87-102); Mean Platelet Volume 12.1 FL (9.6-12.0); Monocytes # 0.4 10*3/uL (0.11-0.8); Monocytes % 3.7 % (1.7-12.7); NRBC # 0.02 10*3/uL; Neutrophils % 89.8 % (38.7-73.9); Platelet Count 157 T/CUMM (130-400); Red Blood Count 3.37 MC/CUMM (3.8-5.5); Red Cell Distribution Width 18.3 % (9.3-17.3); White Blood Count 10.1 T/CUMM (4-12)
[2022-05-10 04:26] LABS: Calcium 8.3 MG/DL (8.5-10.1); Potassium 3.7 MMOL/L (3.5-5.1)
[2022-05-10 04:39] LABS: Band Neutrophils 2 % (0-10); Eosinophils 2 % (0-10); Lymphocytes 5 % (20-55); Total Cells Counted 100
[2022-05-10 04:40] LABS: Microcytosis 1+; Platelet Estimate Adequate; Polychromasia Slight
[2022-05-10] MEDS: MAGNESIUM SULF RIDER 2 GM/50 ML PREMIX IV PRN (04:55)
[2022-05-10 05:25] LABS: Albumin 1.9 G/DL (3.4-5.0); Bilirubin,Direct 0.16 MG/DL (0.0-0.20); Bilirubin,Indirect 0.3 MG/DL (0.0-1.0); Bilirubin,Total 0.5 MG/DL (0.20-1.00); Total Protein 4.9 G/DL (6.4-8.2)
[2022-05-10] MEDS: ACETAMINOPHEN 325 MG TABLET PO PRN ×2 (06:28→14:45)
[2022-05-10] MEDS: MORPHINE 2 MG/1 ML SYRINGE IV PRN ×2 (07:42→18:18)
[2022-05-10] MEDS ORDERED: MIDAZOLAM 100 MG in SODIUM CHLORIDE 0.9% 80 ML IV PRN (07:53)
[2022-05-10] MEDS: PANTOPRAZOLE 40 MG VIAL IV SCH ×2 (09:28→20:31)
[2022-05-10] MEDS: CYANOCOBALAMIN 500 MCG TABLET PO SCH (09:28)
[2022-05-10] MEDS: DESITIN 4OZ/NYSTATIN 15 GRAM MIXTURE PASTE TOP SCH ×2 (09:28→20:30)
[2022-05-10] MEDS: POTASSIUM CHLORIDE RIDER 20 MEQ/100 ML PREMIX IV PRN (14:45)
[2022-05-10] MEDS: GABAPENTIN 100 MG CAPSULE PER TUBE SCH (20:30)
[2022-05-10] MEDS: DULoxetine 30 MG CAPSULE PO SCH (20:30)
[2022-05-11] MEDS: ALBUTEROL/IPRATROPIUM 3 ML NEB RESP TX SCH ×2 (00:20→07:33)
[2022-05-11] MEDS: AMIODARONE INJ 450 MG in DEXTROSE 5% 241 ML IV SCH (02:35)
[2022-05-11 04:54] LABS: Basophils % 0.1 % (0.0-0.8); Eosinophils % 0.1 % (0.00-10.9); Hematocrit 33.7 VOL% (35.7-47.0); Immature Granulocytes % 1.3 %; Immature Granulocytes Absolute 0.13 #; Lymphocytes # 0.5 10*3/uL (1.4-4.0); Lymphocytes % 4.6 % (21.3-54.2); Mean Corpuscular HGB Conc 29.7 GM/DL (32-36); Mean Corpuscular Volume 99.4 FL (87-102); Mean Platelet Volume 11.6 FL (9.6-12.0); Monocytes # 0.5 10*3/uL (0.11-0.8); Monocytes % 4.9 % (1.7-12.7); NRBC # 0.04 10*3/uL; Platelet Count 211 T/CUMM (130-400); Red Blood Count 3.39 MC/CUMM (3.8-5.5); Red Cell Distribution Width 19.3 % (9.3-17.3); White Blood Count 10.2 T/CUMM (4-12)
[2022-05-11 05:10] LABS: Calcium 8.9 MG/DL (8.5-10.1); Osmolality,Calculated 301.4 MOS/KG (273-304); Potassium 4.6 MMOL/L (3.5-5.1)
[2022-05-11 05:16] LABS: Band Neutrophils 3 % (0-10); Lymphocytes 5 % (20-55); Total Cells Counted 100
[2022-05-11 05:17] LABS: Anisocytosis 1+; Microcytosis 1+; Platelet Estimate Normal
[2022-05-11] MEDS: INSULIN REGULAR 100 UNIT/ML SUBCUT SCH (05:53)
[2022-05-11] MEDS: METOCLOPRAMIDE 10 MG/2 ML VIAL IV SCH (05:54)
== END 2022-05-11 10:54 | disposition expired | DRG 207 ==
LOC: EDUNIT# → EDBD → N.ED 10:21 → N.EDINP 12:56 → SUATTDRO 12:56 → N.EDINP 15:35 → N.TELEN 15:35 → N.CC 05-02 14:26
PROVIDERS: ADMIT Internal Medicine; ATTEND Internal Medicine